=== PATIENT | male | born 1940 | race Caucasian/White ===

== ENCOUNTER 2021-10-28 10:54 | Inpatient (IN) | payer MEDICARE ==
[2021-10-28] MEDS ORDERED: SODIUM CHLORIDE 0.9% 500 ML 500 ML IV STA (11:25)
[2021-10-28 11:46] LABS: Basophils % (A) 0 %; Eosinophils # (A) 0.1 k/uL (0-0.7); Eosinophils % (A) 1 %; HCT 41.9 % (39.0-53.0); HGB 13.6 gm/dL (13.0-17.5); Lymphocytes # (A) 1.2 k/uL (1.0-4.8); Lymphocytes % (A) 9 %; MCHC 32.5 g/dL (31.0-37.0); MCV 98.4 fL (80.0-100.0); Mean Platelet Volume 10.2; Monocytes # (A) 1.1 k/uL (0-1.0); Monocytes % (A) 8 %; Neutrophils # (A) 11.3 k/uL (1.3-7.7); Neutrophils % (A) 81 %; Platelet Count 238 k/uL (150-450); RBC 4.26 m/uL (4.30-5.90); RDW 13.2 % (11.5-15.5); WBC 14.1 k/uL (3.8-10.6)
[2021-10-28 11:53] LABS: Albumin 4.1 g/dL (3.5-5.0); Calcium 9.5 mg/dL (8.4-10.2); Total Bilirubin 0.5 mg/dL (0.2-1.3); Total Protein 7.6 g/dL (6.3-8.2)
--- NOTE | 2021-10-28 12:04 | CT ---
EXAMINATION TYPE: CT abdomen pelvis wo con DATE OF EXAM: 10/28/2021 COMPARISON: None HISTORY: 81-year-old male left flank pain, hematuria CT DLP: 670.4 mGycm. Automated exposure control for dose reduction was used. TECHNIQUE: Contiguous axial scanning of the abdomen and pelvis without IV contrast. Coronal and sagit radha reconstructions performed. FINDINGS: Three-vessel coronary artery calcifications are present. Heart normal size without pericardial effusi on. 5 mm left basilar pulmonary nodule can be reassessed in 6 months. Mild emphysematous and fibrotic court nge noted. Scattered hepatic hypodensities measuring up to 1.2 cm probable cysts. Numerous bilateral renal hypodensities measuring up to 4.1 cm on either side, suspected cysts 6 mm nonobstructive left renal calculus.. There is mild fullness of the left renal collecting system and mild to moderate hydronephrosis on the right. A 5 mm calculus is noted within the distal right ureter. This does not seem to fully account for the hydronephrosis on the right at the stone does not fill the lumen of the ureter. Mild thickening left adrenal gland without discrete nodularity. Right adrenal gland and spleen within normal limits. There is abnormal enlargement of the main pancreatic duct within the body, neck, and head of the panc reas with a caliber up to 3.0 cm. The abnormality measures up to 4.8 cm craniocaudal coronal image 36 . Minimal strandy density tracking down the left pararenal space and left retroperitoneum. Suspect some layering sludge in the nondistended gallbladder. Moderate prostatic calcifications infrarenal abdominal aorta and iliac arteries. No dilated small bowel, free fluid, or free air. No obvious mesenteric or retroperitoneal lymphadenop athy. Left-sided colonic diverticulosis. There is a moderate to large left inguinal hernia extending into the upper left scrotal sac measuring up to 14.8 cm long and 7.1 cm wide containing mesenteric fat and nonobstructed proximal sigmoid colo n. No pericolonic inflammatory change seen. Bladder collapsed. Prostate gland enlargement 4.8 cm wide. Possible additional soft tissue thickening along the posterior bladder base, sagittal image 65. Pelvic phlebolith. No abnormal fluid collection in the pelvis or pelvic lymphadenopathy. Bones: Mild to moderate degenerative disc disease L5-S1. Trace grade 1 anterolisthesis L4-L5 and face t arthropathy lower lumbar spine. [facility] lower thoracic spine. IMPRESSION: 1. Mild to moderate right hydronephrosis. There is a a 5 mm stone within the distal right ureter. Ho wever, this does not seem to fully account for the hydronephrosis on the right as the stone does not fill the lumen of the ureter. Correlate with urine cytology and urology referral to exclude any abnor mal soft tissue at the distal ureter or within the bladder. Mild fullness of the left renal collectin g system as well without any obstructing stones. Correlate with PSA values as well. 2. Numerous bilateral hepatic and renal cysts on both sides, largest measuring up to 4.1 cm. Additio nal 6 mm nonobstructive left renal calculus. 3. Marked abnormal enlargement of the main pancreatic duct up to 3.8 cm. Cystic pancreatic neoplasm including malignant IPMN not excluded. Further GI and oncology follow-up recommended. 4. Possible mild acute interstitial pancreatitis centered at the tail the pancreas given some inflam matory fat stranding tracking down the retroperitoneum here. 5. A 5 mm left basilar pulmonary nodule. 3 month follow-up CT chest recommended to reassess and also to survey the remainder of the lungs. 6. Left-sided colonic diverticulosis without acute diverticulitis. 7. Moderate to large left inguinal hernia extending into the left scrotal sac measuring 14.8 cm long . This contains mesenteric fat and nonobstructed proximal sigmoid colon. 8. CAD with 3 vessel coronary artery calcifications.
[2021-10-28] MEDS ORDERED: DEXTROSE 50% SYRINGE 50 ML IVP STA ×2 (12:57→19:59)
[2021-10-28] MEDS ORDERED: INSULIN REGULAR 100 UNIT/ML VIAL (IV) IV ONE ×2 (13:00→19:59)
[2021-10-28] MEDS ORDERED: SODIUM BICARB 8.4% 50 ML SYR (1 MEQ/ML) IV STA ×3 (13:02→20:01)
[2021-10-28] MEDS ORDERED: CALCIUM GLUCONATE IN NACL 2 GM in SALINE 1 100ML.BAG IVPB ONE (13:28)
--- NOTE | 2021-10-28 13:29 | P.NPCON ---
History of Present Illness - Reason for Consult acute renal failure, hyperkalemia - History of Present Illness Reason for admission: Acute kidney injury History of present illness: The patient is a 81-year-old male seen in renal consultation for acute kidney injury. Patient was seen and examined in the emergency room. Patient denies any prior history of kidney disease. Patient presented to the hospital due to hematuria and dysuria. Also complains of urinary frequency for the last 5 days or so. Patient states he has noticed intermittent gross blood in his urine the last 5 days. Creatinine on admission is 13.67. Unknown baseline renal function. Patient denies any prior history of kidney stones. Oral intake is good. No vomiting or diarrhea. No chest pain or shortness of breath. He leonardo es use of nonsteroidals. No history of diabetes. Denies family history of renal disease. No edema. CT of the abdomen and pelvis shows a 6 mm nonobstructive left renal calculus with mild fullness of the left renal collecting system. A 5 mm calculus noted in the right distal ureter with mild to moderate hydronephrosis. Bilateral hepatic and renal cysts were noted. Pancreatic duct was enlarged concerning for possible neoplasm. Denies fever or chills. Hemodynamically stable. Potassium 6.0 and bicarb level 13. Vital signs are stable. General: Awake and alert. No acute distress. HEENT: Head exam is unremarkable. LUNGS: Breath sounds decreased. HEART: Rate and Rhythm are regular. ABDOMEN: Soft, no distention. EXTREMITITES: No edema. Past Medical History Past Medical History: No Reported History History of Any Multi-Drug Resistant Organisms: None Reported Past Surgical History: No Surgical Hx Reported Past Psychological History: No Psychological Hx Reported Smoking Status: Current every day smoker Past Alcohol Use History: Daily Past Drug Use History: None Reported Medications and Allergies Allergies Allergy/AdvReac Type Severity Reaction Status Date / Time No Known Allergies Allergy Verified 10/28/21 11:07 Physical Exam Vitals: Vital Signs Temp Pulse Resp BP Pulse Ox 10/28/21 11:07 98.3 F 93 16 146/69 98 Intake and Output 10/27/21 10/28/21 10/28/21 22:59 06:59 14:59 Other: Weight 83.915 kg Results - Lab Results Most recent lab results Calcium 9.5 mg/dL (8.4-10.2) 10/28/21 11:31 10/28/21 11:31 10/28/21 11:31 Assessment and Plan Plan: Assessment: 1. Acute kidney injury secondary to obstructive uropathy. Creatinine 13.67 today. Unknown baseline renal function. 2. Bilateral nephrolithiasis and hydronephrosis. 3. Hyperkalemia secondary to acute kidney injury and metabolic acidosis. 4. Metabolic acidosis secondary to acute kidney injury. 5. Hematuria and dysuria possibly due to infected stone. Plan: Start bicarb drip at 100 mL an hour. Insert Huggins catheter. Check UA as well as urine and blood cultures. 1 g IV calcium gluconate, 10 units IV insulin, 1 amp of D50, 2 A of sodium bicarb IV push now. 10 g lokelma once today. Repeat BMP in 2-3 hours. Urology and infectious disease consulted. Strict is and os. Continue to assess closely for need for renal placement therapy. This was discussed with the patient. Case discussed with YOLANDA GARRISON. Thank you for the consultation. I will continue to follow the patient with you during his hospital stay.
[2021-10-28] MEDS ORDERED: CALCIUM GLUCONATE IN NACL 1 GM in SALINE 1 100ML.BAG IVPB ONE ×2 (13:32→20:15)
[2021-10-28] MEDS ORDERED: SODIUM ZIRCONIUM CYCLOSILICATE 10 GM PACKET PO ONE ×2 (13:54→20:01)
[2021-10-28] MEDS ORDERED: DEXTROSE 5% IN WATER 1,000 ML with SODIUM BICARB (1 MEQ/ML) 150 ML IV SCH ×2 (14:00→21:00)
--- NOTE | 2021-10-28 14:18 | ED ---
Male Urogenital HPI - General Chief complaint: Urogenital Stated complaint: Urogenital Time Seen by Provider: 10/28/21 11:14 Source: patient Mode of arrival: ambulatory Limitations: no limitations - History of Present Illness Initial comments: Patient is an 81-year-old male presents to the emergency department with a chief complaint of burning with urination and blood in urine. Patient states this is been occurring intermittently for the past month. Upon questioning patient admits to mild intermittent left flank pain and lower back pain, bilateral. Patient denies fever, chills, abdominal pain, testicular pain, increased urinary urgency/frequency, nausea, vomiting, and diarrhea. Patient denies history of previous kidney stone, kidney infection, and urinary tract infection. Patient has no documented history however states he has not seen a primary care provider or received other type of medical care in 60 years. - Related Data Home Medications Medication Instructions Recorded Confirmed No Known Home Medications 10/28/21 10/28/21 Allergies Allergy/AdvReac Type Severity Reaction Status Date / Time No Known Allergies Allergy Verified 10/28/21 14:19 Review of Systems ROS Statement: Those systems with pertinent positive or pertinent negative responses have been documented in the HPI. ROS Other: All systems not noted in ROS Statement are negative. Past Medical History Past Medical History: No Reported History History of Any Multi-Drug Resistant Organisms: None Reported Past Surgical History: No Surgical Hx Reported Past Psychological History: No Psychological Hx Reported Smoking Status: Current every day smoker Past Alcohol Use History: Daily Past Drug Use History: None Reported General Exam Limitations: no limitations General appearance: alert, in no apparent distress Head exam: Present: atraumatic, normocephalic, normal inspection Eye exam: Present: normal appearance, PERRL, EOMI. Absent: scleral icterus, conjunctival injection, periorbital swelling ENT exam: Present: normal exam, mucous membranes moist Neck exam: Present: normal inspection, full ROM Respiratory exam: Present: normal lung sounds bilaterally. Absent: respiratory distress, wheezes, rales, rhonchi, stridor Cardiovascular Exam: Present: regular rate, normal rhythm, normal heart sounds. Absent: systolic murmur, diastolic murmur, rubs, gallop, clicks GI/Abdominal exam: Present: soft, normal bowel sounds. Absent: distended, tenderness, guarding, rebound, rigid Back exam: Present: normal inspection, full ROM. Absent: CVA tenderness (R), CVA tenderness (L), paraspinal tenderness, vertebral tenderness Neurological exam: Present: alert, oriented X3, CN II-XII intact Psychiatric exam: Present: normal affect, normal mood Skin exam: Present: warm, dry, intact, normal color. Absent: rash Course Vital Signs 10/28/21 10/28/21 11:07 13:30 Temperature 98.3 F Pulse Rate 93 97 Respiratory 16 16 Rate Blood Pressure 146/69 180/83 O2 Sat by Pulse 98 97 Oximetry Medical Decision Making - Medical Decision Making This is an 81-year-old male who presents with burning with urination, blood in the urine, left flank pain, and back pain. Thorough history and examination were performed. Patient states his symptoms have been intermittent for 4 weeks. Patient has not seen a primary care provider or been medically evaluated and 60 years. The abdomen is soft and nontender. No bilateral flanks, bilateral paravertebral, or vertebral tenderness. Despite burning with urination due to patient's age and urine urine I will obtain imaging for kidney stone concern. CT of the abdomen and pelvis without contrast was obtained which showed numerous abnormalities. Most significant include a 5 mm stone visualized within the distal right ureter with mild to moderate right-sided hydronephrosis however the stone does not feel the lumen of the ureter, so the hydronephrosis does not seem fairly accounted for. There is mild fullness of the left renal collecting duct without any obstructing stone. There is marked abnormal enlargement of the main pancreatic duct up to 3.8 cm, cystic pancreatic neoplasm including malignancy cannot be excluded. Patient given small fluid bolus. Laboratory studies were obtained. Creatinine is significantly elevated at 13.67, BUN when elevated at 104. Baseline renal function unknown. Potassium elevated at 6.0. White blood cell count elevated at 14.1. Urinalysis pending. Case discussed with skilled nursing facility counselor Dr. Arita. We will attempt to improve creatinine and potassium with medication and if no improvement patient will need dialysis. He also recommended infectious disease consult. Case discussed with urologist Dr. Johansen who recommends bladder scan and Huggins catheter placement. Bladder scan shows 0 mL. Huggins catheter was placed. Case discussed with Dr. Roberto. Patient will be admitted to his service with nephrology, urology, oncology, and infectious disease consult. Patient admitted in stable condition. Dr. Temple is my attendnig. - Lab Data Result diagrams: 10/28/21 11:31 10/28/21 11:31 Lab Results 10/28/21 10/28/21 Range/Units 11:31 11:31 WBC 14.1 H (3.8-10.6) k/uL RBC 4.26 L (4.30-5.90) m/uL Hgb 13.6 (13.0-17.5) gm/dL Hct 41.9 (39.0-53.0) % MCV 98.4 (80.0-100.0) fL MCH 32.0 (25.0-35.0) pg MCHC 32.5 (31.0-37.0) g/dL RDW 13.2 (11.5-15.5) % Plt Count 238 (150-450) k/uL MPV 10.2 Neutrophils % 81 % Lymphocytes % 9 % Monocytes % 8 % Eosinophils % 1 % Basophils % 0 % Neutrophils # 11.3 H (1.3-7.7) k/uL Lymphocytes # 1.2 (1.0-4.8) k/uL Monocytes # 1.1 H (0-1.0) k/uL Eosinophils # 0.1 (0-0.7) k/uL Basophils # 0.0 (0-0.2) k/uL Sodium 134 L (137-145) mmol/L Potassium 6.0 H (3.5-5.1) mmol/L Chloride 104 (98-107) mmol/L Carbon Dioxide 13 L (22-30) mmol/L Anion Gap 17 mmol/L BUN 104 H* (9-20) mg/dL Creatinine 13.67 H* (0.66-1.25) mg/dL Est GFR (CKD-EPI)AfAm 3 (>60 ml/min/1.73 sqM) Est GFR (CKD-EPI)NonAf 3 (>60 ml/min/1.73 sqM) Glucose 107 H (74-99) mg/dL Calcium 9.5 (8.4-10.2) mg/dL Total Bilirubin 0.5 (0.2-1.3) mg/dL AST 20 (17-59) U/L ALT 12 (4-49) U/L Alkaline Phosphatase 34 L (38-126) U/L Total Protein 7.6 (6.3-8.2) g/dL Albumin 4.1 (3.5-5.0) g/dL Lipase 252 (23-300) U/L Disposition Clinical Impression: MARIANEAL (acute kidney injury), Hydronephrosis of right kidney, Bilateral kidney stones, Pancreatic ductal abnormality, Pulmonary nodule, Burning with urination, Blood in urine Disposition: ADMITTED IP TO THIS [facility] Condition: Fair Referrals: None,Stated [Primary Care Provider] - 1-2 days Decision Time: 14:28
--- NOTE | 2021-10-28 14:25 | P.GSCN ---
History of Present Illness Consult date: 10/28/21 History of present illness: 81-year-old gentleman who hasn't seen a doctor for well over 50 years. He comes emergency room with a two-week history of dysuria and hematuria. He was evaluated emergency room found to be in renal failure with a creatinine of 13. Had a computed tomography scan abnormal identifying right-sided hydronephrosis with a distal ureteral stone and some mild left-sided hydronephrosis. The bladder was not obviously full. A catheters placed in there was not any significant urine. He was seen by nephrology and nephrology thought he had renal final due to obstructive uropathy. The patient states that he normally voids relatively well although somewhat frequently. There is not been any problems voiding. There is not been any incontinence. He has a catheter indwelling with no urine in the catheter. The computed tomography scan is rev iewed by myself identified a chronic hydronephrosis on the right, possible stone in the ureter and some left-sided hydronephrosis. Review of Systems All systems: negative - Constitutional Denies fever, Denies weight loss - EENT Eyes: denies blurred vision Ears, nose, mouth and throat: Denies dysphagia - Cardiovascular Denies chest pain, Denies shortness of breath - Respiratory Denies cough, Denies 7 - Gastrointestinal Reports as per HPI - Genitourinary Denies dysuria, Denies hematuria - Integumentary Denies rash, Denies unusual bruising - Neurological Denies headaches, Denies syncope - Hematologic/Lymphatic Denies easy bleeding, Denies easy bruising Past Medical History Past Medical History: No Reported History History of Any Multi-Drug Resistant Organisms: None Reported Past Surgical History: No Surgical Hx Reported Past Psychological History: No Psychological Hx Reported Smoking Status: Current every day smoker Past Alcohol Use History: Daily Past Drug Use History: None Reported Medications and Allergies Home Medications Medication Instructions Recorded Confirmed Type No Known Home Medications 10/28/21 10/28/21 History Allergies Allergy/AdvReac Type Severity Reaction Status Date / Time No Known Allergies Allergy Verified 10/28/21 14:19 Surgical - Exam Vital Signs Temp Pulse Resp BP Pulse Ox 98.3 F 93 16 146/69 98 10/28/21 11:07 10/28/21 11:07 10/28/21 11:07 10/28/21 11:07 10/28/21 11:07 - General well developed, well nourished, no distress - Eyes PERRL - ENT no hearing loss - Neck no masses - Respiratory normal expansion, normal respiratory effort - Cardiovascular Rhythm: regular - Abdomen Abdomen: soft, non tender - Genitourinary Indwelling catheter with no urine prostate is 30 g soft and benign normal penis with no external lesions, testicles present - Integumentary no rash, no growths - Neurologic normal coordination, normal sensation - Musculoskeletal normal posture - Psychiatric oriented to time, oriented to person, oriented to place, speech is normal, memory intact Results - Labs 10/28/21 11:31 10/28/21 11:31 Abnormal Lab Results - Last 24 Hours (Table) 10/28/21 10/28/21 Range/Units 11:31 11:31 WBC 14.1 H (3.8-10.6) k/uL RBC 4.26 L (4.30-5.90) m/uL Neutrophils # 11.3 H (1.3-7.7) k/uL Monocytes # 1.1 H (0-1.0) k/uL Sodium 134 L (137-145) mmol/L Potassium 6.0 H (3.5-5.1) mmol/L Carbon Dioxide 13 L (22-30) mmol/L BUN 104 H* (9-20) mg/dL Creatinine 13.67 H* (0.66-1.25) mg/dL Glucose 107 H (74-99) mg/dL Alkaline Phosphatase 34 L (38-126) U/L Diabetes panel 10/28/21 Range/Units 11:31 Sodium 134 L (137-145) mmol/L Potassium 6.0 H (3.5-5.1) mmol/L Chloride 104 (98-107) mmol/L Carbon Dioxide 13 L (22-30) mmol/L BUN 104 H* (9-20) mg/dL Creatinine 13.67 H* (0.66-1.25) mg/dL Glucose 107 H (74-99) mg/dL Calcium 9.5 (8.4-10.2) mg/dL AST 20 (17-59) U/L ALT 12 (4-49) U/L Alkaline Phosphatase 34 L (38-126) U/L Total Protein 7.6 (6.3-8.2) g/dL Albumin 4.1 (3.5-5.0) g/dL Calcium panel 10/28/21 Range/Units 11:31 Calcium 9.5 (8.4-10.2) mg/dL Albumin 4.1 (3.5-5.0) g/dL Pituitary panel 10/28/21 Range/Units 11:31 Sodium 134 L (137-145) mmol/L Potassium 6.0 H (3.5-5.1) mmol/L Chloride 104 (98-107) mmol/L Carbon Dioxide 13 L (22-30) mmol/L BUN 104 H* (9-20) mg/dL Creatinine 13.67 H* (0.66-1.25) mg/dL Glucose 107 H (74-99) mg/dL Calcium 9.5 (8.4-10.2) mg/dL Adrenal panel 10/28/21 Range/Units 11:31 Sodium 134 L (137-145) mmol/L Potassium 6.0 H (3.5-5.1) mmol/L Chloride 104 (98-107) mmol/L Carbon Dioxide 13 L (22-30) mmol/L BUN 104 H* (9-20) mg/dL Creatinine 13.67 H* (0.66-1.25) mg/dL Glucose 107 H (74-99) mg/dL Calcium 9.5 (8.4-10.2) mg/dL Total Bilirubin 0.5 (0.2-1.3) mg/dL AST 20 (17-59) U/L ALT 12 (4-49) U/L Alkaline Phosphatase 34 L (38-126) U/L Total Protein 7.6 (6.3-8.2) g/dL Albumin 4.1 (3.5-5.0) g/dL - Imaging CT scan - abdomen: report reviewed, image reviewed CT scan - pelvis: report reviewed, image reviewed Assessment and Plan Assessment: Impression: Acute renal failure. Hematuria. Right-sided hydronephrosis chronic left-sided hydronephrosis. Possible ureteral stone Recommendations: The amount of hydronephrosis does not seem to be consistent with a renal failure however without other obvious causes a renal failure think cystoscopy bilateral retrograde pyelograms probable stent placements would be in order. I will do that this afternoon.
[2021-10-28] MEDS: SODIUM CHLORIDE 0.9% 1,000 ML IV SCH ×2 (14:30→15:41)
[2021-10-28] MEDS ORDERED: ACETAMINOPHEN TAB 325 MG TAB PO PRN (14:54)
[2021-10-28] MEDS ORDERED: NALOXONE 0.4 MG/ML 1 ML VIAL IV PRN (14:54)
[2021-10-28] MEDS ORDERED: MELATONIN 3 MG TABLET PO PRN (14:54)
[2021-10-28] MEDS ORDERED: bisacodyL 5 MG TABLET.DR PO PRN (14:54)
[2021-10-28] MEDS ORDERED: ONDANSETRON 4 MG/2 ML VIAL IVP PRN (14:54)
[2021-10-28 15:07] LABS: Calcium 8.2 mg/dL (8.4-10.2); Potassium 5.1 mmol/L (3.5-5.1)
--- NOTE | 2021-10-28 15:13 | P.HPIM ---
History of Present Illness H&P Date: 10/28/21 Chief Complaint: dysuria Patient is an 81-year-old male with chronic tobacco dependency, daily alcohol use who has not seen a physician in many years who presented to the ER with complaints of difficulty with urination. On arrival to the ER his vital signs were within normal limits. Laboratory analysis showed a white blood cell count of 14.1, sodium 134, potassium 6, carbon dioxide 13, anion gap 17, BUN 104, creatinine 13.6. CT abdomen and pelvis was completed which demonstrated mild to moderate right hydronephrosis with a 5 mm stone in the right distal ureter, mild. The left renal collecting system without any obstruction, numerous bilateral hepatic and renal cysts on both sides, marked enlargement of the pancreatic duct up to 3.8 m with cystic pancreatic neoplasm including malignant IPM and not excluded, possible mild acute interstitial pancreatitis centered in the tail, 5 mm basilar pulmonary nodule, moderate to large inguinal hernia, and coronary artery calcifications. In the ER he was started on IV fluids. He is given a dose of Lokalema, sodium bicarb, insulin, dextrose, and calcium. Nephrology was consulted. Arrangements are made for admission for acute renal failure. Maria catheter was inserted. He was seen by urology who plans on stent placement. Patient seen and examined at bedside. He reports that for the past 2 months he has been having dysuria, urinary frequency, and intermittent hematuria. He reports feeling weak today. Intermittent constipation. He has not chest pain, SOB, nuasea, vomiting, fevers, chills. He denies weight loss/gain. He has not seen a doctor in his adult life. Pertinent positives and negatives as discussed in HPI, a complete review of systems was performed and all other systems are negative. Vital signs reviewed General: non toxic, no distress, appears at stated age Derm: warm, dry Head: atraumatic, normocephalic, symmetric Eyes: EOMI, no lid lag, anicteric sclera, pupils equal round reactive to light ENT: Nose and ears atraumatic, no thrush, no pharyngeal erythema Neck: No thyromegaly, no cervical lymphadenopathy, trachea midline, supple Mouth: no lip lesion, mucus membranes moist Cardiovascular: S1S2 reg, no murmur, positive posterior tibial pulse bilateral, no edema, capillary refill less than 2 seconds Lungs: clear to ascultation bilateral, no ronchi, no rales, no wheeze, no accessory muscle use Abdominal: soft, nontender to palpation, no guarding, no appreciable organomegaly, normal bowel sounds Ext: no gross muscle atrophy, muscle strength muscle strength 5 out of 5 in all 4 extremities, no contractures, + maria-- no urine in the bag. Neuro: CN II-XII grossly intact, light touch intact all 4 extremities, finger to nose within normal limits, Psych: Alert, oriented, appropriate affect Assessment/Plan: Acute kidney injury secondary to obstructive uropathy Bilateral hydronephrosis, right-sided nephrolithiasis Hyperkalemia High anion gap metabolic acidosis Hematuria - nephrology and urology recs appreciated - s/p acute hyperkalemia treatment - avoid nephrotoxic agents - plan for uteteral stent placement - strict I and O - follow renal labs - maria Pancreatic duct dilatation - oncology eval - likely MRCP early next week ETOH abuse - CIWA - Thiamine - folic acid Tobacco abuse - nicotine replacement The patient is admitted with an anticipated greater than 2 midnight stay for evaluation of MARIANELA. Surrogate decision-maker: CODE STATUS:full, no prolonged vent/trach/PEG DVT prophylaxis: Heparin Discussed with: patient, nursing, ED provider Anticipated discharge date: in 4-[address]: home A total of 65 minutes was spent on the care of this complex patient more than 50% of the time was spent in counseling and care coordination. Past Medical History Past Medical History: No Reported History History of Any Multi-Drug Resistant Organisms: None Reported Past Surgical History: No Surgical Hx Reported Past Psychological History: No Psychological Hx Reported Smoking Status: Current every day smoker Past Alcohol Use History: Daily Past Drug Use History: None Reported - Past Family History Mother Additional Family Medical History / Comment(s): breast cancer Father Additional Family Medical History / Comment(s): heart disease Medications and Allergies Home Medications Medication Instructions Recorded Confirmed Type No Known Home Medications 10/28/21 10/28/21 History Allergies Allergy/AdvReac Type Severity Reaction Status Date / Time No Known Allergies Allergy Verified 10/28/21 14:19 Physical Exam Osteopathic Statement: *. No significant issues noted on an osteopathic structural exam other than those noted in the History and Physical/Consult. Vitals: Vital Signs Temp Pulse Resp BP Pulse Ox 10/28/21 13:30 97 16 180/83 97 10/28/21 11:07 98.3 F 93 16 146/69 98 Intake and Output 10/27/21 10/28/21 10/28/21 22:59 06:59 14:59 Output Total 0 Balance 0 Output: Post Void Residual 0 Other: Weight 83.915 kg Results CBC & Chem 7: 10/28/21 11:31 10/28/21 11:31 Labs: Abnormal Lab Results - Last 24 Hours (Table) 10/28/21 10/28/21 Range/Units 11:31 11:31 WBC 14.1 H (3.8-10.6) k/uL RBC 4.26 L (4.30-5.90) m/uL Neutrophils # 11.3 H (1.3-7.7) k/uL Monocytes # 1.1 H (0-1.0) k/uL Sodium 134 L (137-145) mmol/L Potassium 6.0 H (3.5-5.1) mmol/L Carbon Dioxide 13 L (22-30) mmol/L BUN 104 H* (9-20) mg/dL Creatinine 13.67 H* (0.66-1.25) mg/dL Glucose 107 H (74-99) mg/dL Alkaline Phosphatase 34 L (38-126) U/L
[2021-10-28] MEDS ORDERED: LORazepam 2 MG/ML INJ IV PRN ×3 (15:14)
[2021-10-28] MEDS ORDERED: IV FLUID CONTINUATION 1,000 ML IV ONE (17:18)
[2021-10-28] MEDS ORDERED: HYDROmorphone (PF) 1 MG/ML ONE (17:59)
[2021-10-28] MEDS ORDERED: MIDAZOLAM 2 MG/2 ML VIAL ONE (17:59)
[2021-10-28] MEDS ORDERED: ROCURONIUM 10 MG/ML (5 ML VIAL) IV ONE (17:59)
[2021-10-28] MEDS ORDERED: NEOSTIGMINE 1 MG/ML 10 ML VIAL ONE (17:59)
[2021-10-28] MEDS ORDERED: LIDOCAINE 2% INJ 20 MG/ML (2 ML VIAL) ONE (17:59)
[2021-10-28] MEDS ORDERED: fentaNYL (PF) 50 MCG/ML 2 ML AMP ONE (17:59)
[2021-10-28] MEDS ORDERED: PROPOFOL 10 MG/ML 20 ML VIAL IV ONE (17:59)
[2021-10-28] MEDS ORDERED: GLYCOPYRROLATE 0.2 MG/ML 2 ML VIAL ONE (17:59)
[2021-10-28 18:11] LABS: Calcium 8.9 mg/dL (8.4-10.2); Potassium 5.5 mmol/L (3.5-5.1)
--- NOTE | 2021-10-28 19:30 | P.OP ---
Date of Procedure: 10/28/21 Preoperative Diagnosis: Bilateral hydronephrosis right greater than left, presumed ureteral calculus right, hematuria, acute renal failure Postoperative Diagnosis: Same secondary to invasive bladder cancer Procedure(s) Performed: Cystoscopy transurethral resection of bladder tumor Anesthesia: ROWENA Surgeon: Francisco Javier Johansen Estimated Blood Loss (ml): 100 Pathology: other (Bladder cancer) Disposition: PACU Indications for Procedure: The patient is 81. He presented to the emergency room with hematuria and dysuria. He is found to have acute renal failure with a creatinine of 13.9. He has no medical history and has never seen a doctor in 50 years. He had a computed tomography scan identifying bilateral hydronephrosis right greater than left. It was thought that there is a stone in the right ureter. There also may be a mass in the bladder. With these findings he comes for cystoscopy retrograde pyelograms and possible TURBT possible stent placement. Description of Procedure: Patient brought to the operative suite. Given general anesthesia. Placed lithotomy position with sterile prep and drape. Under direct vision the 25- Thai sheath direct vision obturator and Foroblique lenses introduced in urethra is normal. The prostate is not obstructing. Upon entering the bladder there is obvious diffuse non-papillary tumor on the floor the bladder right and lateral guo. I cannot see the trigone. The bladder guo heavily trabeculated. Moore resectoscope I resect as much of the tumor I can see. I still cannot see the ureteral orifices. The tumor is of moderate size (3-4 cm) I controlled bleeding with electrocautery. I then the procedure I irrigate the bladder. It is clear to minimal pinkness. A Huggins catheters placed and irrigated freely. The patient awake and returned recovery room good condition Impression this patient has a term invasive bladder cancer obstructing both ureters leading to renal failure bilateral hydronephrosis. We will see if the resection relieves any of the obstruction he needs able to make urine if not then he will need dialysis and bilateral nephrostomy tubes. This has been explained to the family.
[2021-10-28] MEDS ORDERED: HYDROmorphone 0.5 MG/0.5 ML SYRINGE IVP ONE ×2 (19:41→19:48)
[2021-10-28] MEDS ORDERED: SODIUM CHLORIDE 0.9% 1,000 ML IV ONE (19:42)
[2021-10-28] MEDS ORDERED: ONDANSETRON 4 MG/2 ML VIAL IVP ONE (19:49)
[2021-10-28] MEDS: HEPARIN SODIUM,PORCINE/PF 5,000 UNIT/0.5 ML SYRINGE SQ SCH (20:56)
[2021-10-28 22:59] LABS: Appearance,Urine Bloody (Clear)
[2021-10-28 23:00] LABS: Color,Urine Red
[2021-10-28 23:09] LABS: RBC,Urine >182 /hpf (0-5); WBC,Urine 153 /hpf (0-5)
[2021-10-29 01:17] LABS: Calcium 8.6 mg/dL (8.4-10.2)
[2021-10-29] MEDS ORDERED: INSULIN REGULAR 100 UNIT/ML VIAL (IV) IV ONE (01:50)
[2021-10-29] MEDS ORDERED: CALCIUM GLUCONATE IN NACL 1 GM in SALINE 1 100ML.BAG IVPB ONE (01:53)
[2021-10-29] MEDS ORDERED: DEXTROSE 50% SYRINGE 50 ML IVP STA (01:55)
[2021-10-29] MEDS: HEPARIN SODIUM,PORCINE/PF 5,000 UNIT/0.5 ML SYRINGE SQ SCH (02:14)
[2021-10-29 08:05] LABS: Glucose,Whole Blood 85 mg/dL (75-99)
--- NOTE | 2021-10-29 10:10 | P.PN ---
Subjective Progress Note Date: 10/29/21 Pt doing well today, no new complaints. Now is putting out urine, s/p bladder tumor resection. Monitoring K, Cr, BUN closely with possibility of dialysis and b/l nephrostomy tube placement if patients kidney function declines. Gen: awake, alert HEENT: normocephalic, atraumatic, good hearing acuity, moist mucous membranes Resp: good air exchange, breathing comfortably with no accessory muscle use CVS: good distal perfusion x 4, GI: soft, NTTP, ND : no SPT, no CVAT, maria catheter is present, hemorrhagic urine MSK: no pitting edema, no clubbing Neuro: non-focal, moving all extremities Psych: cooperative, euthymic mood Assessment/plan: Acute kidney injury secondary to obstructive uropathy Bilateral hydronephrosis, right-sided nephrolithiasis Invasive Bladder Carcinoma Hyperkalemia High anion gap metabolic acidosis Hematuria - nephrology and urology recs appreciated - s/p acute hyperkalemia treatment - avoid nephrotoxic agents - plan for uteteral stent placement - strict I and O - follow renal labs - maria - f/u pathology of bladder mass Pancreatic duct dilatation - oncology eval - likely MRCP early next week ETOH abuse - CIWA - Thiamine - folic acid Tobacco abuse - nicotine replacement Surrogate decision-maker: CODE STATUS:full, no prolonged vent/trach/PEG DVT prophylaxis: Heparin Anticipated discharge date: in 4-[address]: home Objective - Vital Signs Vital signs: Vital Signs Temp 98 F 10/29/21 04:55 Pulse 89 10/29/21 04:55 Resp 16 10/29/21 04:55 BP 139/67 10/29/21 04:55 Pulse Ox 95 10/29/21 04:55 FiO2 Intake & Output 10/28/21 10/29/21 10/29/21 18:59 06:59 18:59 Intake Total 600 150 Output Total 0 475 Balance 600 -325 Weight 83.915 kg Intake: IV 600 150 Output: Urine 450 Post Void Residual 0 Estimated Blood Loss 25 Other: Voiding Method Indwelling Catheter - Labs CBC & Chem 7: 10/28/21 11:31 10/29/21 00:11 Labs: Abnormal Lab Results - Last 24 Hours (Table) 10/28/21 10/28/21 10/28/21 Range/Units 11:31 11:31 14:26 WBC 14.1 H (3.8-10.6) k/uL RBC 4.26 L (4.30-5.90) m/uL Neutrophils # 11.3 H (1.3-7.7) k/uL Monocytes # 1.1 H (0-1.0) k/uL Sodium 134 L (137-145) mmol/L Potassium 6.0 H (3.5-5.1) mmol/L Carbon Dioxide 13 L 33 H (22-30) mmol/L BUN 104 H* 114 H* (9-20) mg/dL Creatinine 13.67 H* 12.02 H* (0.66-1.25) mg/dL Glucose 107 H 172 H (74-99) mg/dL Calcium 8.2 L (8.4-10.2) mg/dL Alkaline Phosphatase 34 L (38-126) U/L Urine RBC (0-5) /hpf Urine WBC (0-5) /hpf 10/28/21 10/28/21 10/29/21 Range/Units 17:29 22:45 00:11 WBC (3.8-10.6) k/uL RBC (4.30-5.90) m/uL Neutrophils # (1.3-7.7) k/uL Monocytes # (0-1.0) k/uL Sodium 133 L 135 L (137-145) mmol/L Potassium 5.5 H (3.5-5.1) mmol/L Carbon Dioxide 16 L (22-30) mmol/L BUN 104 H* 104 H* (9-20) mg/dL Creatinine 13.50 H* 12.82 H* (0.66-1.25) mg/dL Glucose 100 H 57 L (74-99) mg/dL Calcium (8.4-10.2) mg/dL Alkaline Phosphatase (38-126) U/L Urine RBC >182 H (0-5) /hpf Urine WBC 153 H (0-5) /hpf Microbiology - Last 24 Hours (Table) 10/28/21 22:45 Urine Culture - Preliminary Urine,Voided
--- NOTE | 2021-10-29 11:01 | P.PN ---
Subjective Patient is seen in follow for acute kidney injury. Patient noted to have bilateral hydronephrosis and underwent cystoscopy with transurethral resection of bladder tumor on 10/28/2021. Has a Huggins catheter with bloody urine output. On bicarb drip. Hemodynamically stable. Oral intake is fair. Vital signs are stable. General: Awake. No acute distress. HEENT: Head exam is unremarkable. LUNGS: Breath sounds decreased. HEART: Rate and Rhythm are regular. ABDOMEN: Soft, no distention. EXTREMITITES: No edema. Objective - Vital Signs Vital signs: Vital Signs Temp 98.6 F 10/29/21 10:33 Pulse 83 10/29/21 10:33 Resp 15 10/29/21 10:33 BP 147/64 10/29/21 10:33 Pulse Ox 95 10/29/21 04:55 FiO2 Intake & Output 10/28/21 10/29/21 10/29/21 18:59 06:59 18:59 Intake Total 600 150 Output Total 0 475 Balance 600 -325 Weight 83.915 kg Intake: IV 600 150 Output: Urine 450 Post Void Residual 0 Estimated Blood Loss 25 Other: Voiding Method Indwelling Catheter - Labs CBC & Chem 7: 10/28/21 11:31 10/29/21 00:11 Labs: Abnormal Lab Results - Last 24 Hours (Table) 10/28/21 10/28/21 10/28/21 Range/Units 11:31 11:31 14:26 WBC 14.1 H (3.8-10.6) k/uL RBC 4.26 L (4.30-5.90) m/uL Neutrophils # 11.3 H (1.3-7.7) k/uL Monocytes # 1.1 H (0-1.0) k/uL Sodium 134 L (137-145) mmol/L Potassium 6.0 H (3.5-5.1) mmol/L Carbon Dioxide 13 L 33 H (22-30) mmol/L BUN 104 H* 114 H* (9-20) mg/dL Creatinine 13.67 H* 12.02 H* (0.66-1.25) mg/dL Glucose 107 H 172 H (74-99) mg/dL Calcium 8.2 L (8.4-10.2) mg/dL Alkaline Phosphatase 34 L (38-126) U/L Urine RBC (0-5) /hpf Urine WBC (0-5) /hpf 10/28/21 10/28/21 10/29/21 Range/Units 17:29 22:45 00:11 WBC (3.8-10.6) k/uL RBC (4.30-5.90) m/uL Neutrophils # (1.3-7.7) k/uL Monocytes # (0-1.0) k/uL Sodium 133 L 135 L (137-145) mmol/L Potassium 5.5 H (3.5-5.1) mmol/L Carbon Dioxide 16 L (22-30) mmol/L BUN 104 H* 104 H* (9-20) mg/dL Creatinine 13.50 H* 12.82 H* (0.66-1.25) mg/dL Glucose 100 H 57 L (74-99) mg/dL Calcium (8.4-10.2) mg/dL Alkaline Phosphatase (38-126) U/L Urine RBC >182 H (0-5) /hpf Urine WBC 153 H (0-5) /hpf Microbiology - Last 24 Hours (Table) 10/28/21 22:45 Urine Culture - Preliminary Urine,Voided Assessment and Plan Plan: Assessment: 1. Acute kidney injury secondary to obstructive uropathy. Creatinine 13.67 on admission - 12.8 to as of last night. Unknown baseline renal function. 2. Bilateral nephrolithiasis and hydronephrosis. Status post cystoscopy with transurethral resection of bladder tumor on 10/28/2021. Urology following. Has a Huggins catheter. 3. Hyperkalemia secondary to acute kidney injury and metabolic acidosis. Improved with medical management. 4. Metabolic acidosis secondary to acute kidney injury. Improved with bicarbonate drip. 5. Pancreatic duct dilatation. Questionable malignancy. Plan: Stop bicarb drip. Start normal saline at 70 mL an hour. Check phosphorus level. Continue to monitor renal function and urine output. Follow-up morning labs. If no significant improvement in renal function, will initiate renal replacement therapy. Continue follow-up with urology. May need nephrostomy tubes. Discussed with patient.
[2021-10-29 11:25] LABS: HCT 33.9 % (39.0-53.0); MCH 31.4 pg (25.0-35.0); MCHC 32.6 g/dL (31.0-37.0); MCV 96.3 fL (80.0-100.0); Mean Platelet Volume 8.8; Platelet Count 225 k/uL (150-450); RBC 3.52 m/uL (4.30-5.90); RDW 13.2 % (11.5-15.5); WBC 13.5 k/uL (3.8-10.6)
[2021-10-29 11:32] LABS: Calcium 8.5 mg/dL (8.4-10.2); Magnesium 1.8 mg/dL (1.6-2.3); Phosphorus 7.5 mg/dL (2.5-4.5); Potassium 5.2 mmol/L (3.5-5.1)
[2021-10-29 11:53] LABS: Glucose,Whole Blood 109 mg/dL (75-99)
[2021-10-29] MEDS: SODIUM CHLORIDE 0.9% 1,000 ML IV SCH (13:10)
[2021-10-29] MEDS ORDERED: HEPARIN SODIUM 1,000 UN/ML (10ML VL) IV ONE (13:32)
[2021-10-29] MEDS ORDERED: HEPARIN SODIUM 1,000 UN/ML (10ML VL) IV PRN (13:32)
--- NOTE | 2021-10-29 13:37 | P.PN ---
Subjective Progress Note Date: 10/29/21 The patient is in the hospital with acute renal failure. This is probably post renal as he has bilateral hydronephrosis. Yesterday I identified what appears to be an invasive bladder cancer. This was resected. He seems to made a fair amount urine overnight which is good. I was unable to see real orifice ease therefore double-J catheters could not be placed. Remotely may be only get by with improvement acute renal function based on what I did however nephrostomy tubes may be in order in the future. I lengthy discussion with the daughter who understands medical issues that she is a pharmacist and I explained to her the 2 possibilities could be an invasive bladder cancer or remotely and metastatic pancreatic cancer. He has a strange looking pancreas on computed tomography scan however I favor bladder cancer at this point in time is the patient has been a long-term smoker. We will see how he does overnight before further consideration of dialysis is entertained. Preferably had like to wait till the biopsy comes back before recommendation of nephrostomy tubes. I will follow with you. Objective - Vital Signs Vital signs: Vital Signs Temp 98.6 F 10/29/21 10:33 Pulse 83 10/29/21 10:33 Resp 15 10/29/21 10:33 BP 147/64 10/29/21 10:33 Pulse Ox 95 10/29/21 04:55 FiO2 Intake & Output 10/28/21 10/29/21 10/29/21 18:59 06:59 18:59 Intake Total 600 150 Output Total 0 475 Balance 600 -325 Weight 83.915 kg Intake: IV 600 150 Output: Urine 450 Post Void Residual 0 Estimated Blood Loss 25 Other: Voiding Method Indwelling Catheter Indwelling Catheter - Labs CBC & Chem 7: 10/29/21 10:28 10/29/21 10:28 Labs: Abnormal Lab Results - Last 24 Hours (Table) 10/28/21 10/28/21 10/28/21 Range/Units 14:26 17:29 22:45 WBC (3.8-10.6) k/uL RBC (4.30-5.90) m/uL Hgb (13.0-17.5) gm/dL Hct (39.0-53.0) % Sodium 133 L (137-145) mmol/L Potassium 5.5 H (3.5-5.1) mmol/L Carbon Dioxide 33 H 16 L (22-30) mmol/L BUN 114 H* 104 H* (9-20) mg/dL Creatinine 12.02 H* 13.50 H* (0.66-1.25) mg/dL Glucose 172 H 100 H (74-99) mg/dL POC Glucose (mg/dL) (75-99) mg/dL Calcium 8.2 L (8.4-10.2) mg/dL Phosphorus (2.5-4.5) mg/dL Urine RBC >182 H (0-5) /hpf Urine WBC 153 H (0-5) /hpf 10/29/21 10/29/21 10/29/21 Range/Units 00:11 10:28 10:28 WBC 13.5 H (3.8-10.6) k/uL RBC 3.52 L (4.30-5.90) m/uL Hgb 11.0 L (13.0-17.5) gm/dL Hct 33.9 L (39.0-53.0) % Sodium 135 L 135 L (137-145) mmol/L Potassium 5.2 H (3.5-5.1) mmol/L Carbon Dioxide 21 L (22-30) mmol/L BUN 104 H* 97 H (9-20) mg/dL Creatinine 12.82 H* 12.32 H* (0.66-1.25) mg/dL Glucose 57 L (74-99) mg/dL POC Glucose (mg/dL) (75-99) mg/dL Calcium (8.4-10.2) mg/dL Phosphorus 7.5 H (2.5-4.5) mg/dL Urine RBC (0-5) /hpf Urine WBC (0-5) /hpf 10/29/21 Range/Units 11:50 WBC (3.8-10.6) k/uL RBC (4.30-5.90) m/uL Hgb (13.0-17.5) gm/dL Hct (39.0-53.0) % Sodium (137-145) mmol/L Potassium (3.5-5.1) mmol/L Carbon Dioxide (22-30) mmol/L BUN (9-20) mg/dL Creatinine (0.66-1.25) mg/dL Glucose (74-99) mg/dL POC Glucose (mg/dL) 109 H (75-99) mg/dL Calcium (8.4-10.2) mg/dL Phosphorus (2.5-4.5) mg/dL Urine RBC (0-5) /hpf Urine WBC (0-5) /hpf Microbiology - Last 24 Hours (Table) 10/28/21 22:45 Urine Culture - Preliminary Urine,Voided
[2021-10-29] MEDS ORDERED: DILTIAZEM 125 MG in SODIUM CHLORIDE 0.9% 100 ML IV SCH (13:45)
[2021-10-29 14:00] LABS: Basophils % (A) 0 %; Eosinophils # (A) 0.1 k/uL (0-0.7); Eosinophils % (A) 1 %; HCT 38.4 % (39.0-53.0); HGB 12.4 gm/dL (13.0-17.5); Lymphocytes # (A) 1.5 k/uL (1.0-4.8); Lymphocytes % (A) 13 %; MCH 31.1 pg (25.0-35.0); MCHC 32.2 g/dL (31.0-37.0); MCV 96.4 fL (80.0-100.0); Mean Platelet Volume 9.1; Monocytes # (A) 0.7 k/uL (0-1.0); Monocytes % (A) 6 %; Neutrophils # (A) 9.2 k/uL (1.3-7.7); Neutrophils % (A) 78 %; Platelet Count 235 k/uL (150-450); RBC 3.99 m/uL (4.30-5.90); RDW 13.4 % (11.5-15.5); WBC 11.8 k/uL (3.8-10.6)
[2021-10-29 14:26] LABS: Prothrombin Time 11.2 sec (9.0-12.0)
[2021-10-29] MEDS ORDERED: LIDOCAINE 1% INJ 10MG/ML (5 ML VIAL-PF) SQ ONE (14:38)
[2021-10-29] MEDS: HEPARIN SOD,PORK IN 0.45% NACL 25,000 UNIT in 0.45% NACL 1 250ML.BAG IV SCH (16:05)
[2021-10-29] MEDS: METOPROLOL TARTRATE 25 MG TAB PO SCH ×2 (16:11→21:34)
[2021-10-29 16:31] LABS: Glucose,Whole Blood 106 mg/dL (75-99)
--- NOTE | 2021-10-29 17:20 | PCN ---
PROCEDURE NOTE PREOPERATIVE DIAGNOSIS: Acute on chronic renal failure. POSTOPERATIVE DIAGNOSIS: Acute on chronic renal failure. PROCEDURE PERFORMED: Ultrasound-guided dialysis catheter placement, right femoral approach. PROCEDURE DESCRIPTION: The patient was seen in the room. Right groin was prepped and drapes were applied in sterile manner. Lidocaine 1% plain was infiltrated. Ultrasound-guided micropuncture was introduced into the right femoral vein. Micropuncture guidewire was passed and a 4- Japanese dilator advanced on top of the guidewire. Then we passed a regular guidewire without any resistance. A tunnel was created. Then we placed the dialysis catheter, flushed with heparin saline and hep-locked, secured with 3-0 nylon. Patient tolerated the procedure well. MMODL / IJN: [id number] /
[2021-10-29 20:07] LABS: Glucose,Whole Blood 121 mg/dL (75-99)
--- NOTE | 2021-10-29 22:14 | P.CONS ---
History of Present Illness - Reason for Consult Consult date: 10/29/21 Per nephrology recommendation Requesting physician: Apoorva Veronica - Chief Complaint Blood in the urine x 1 week - History of Present Illness Patient is a 81-year-old male presenting to the ER yesterday for evaluation of hematuria and dysuria in this patient symptom has been going on for about a week started with increasing frequency and the patient having a he maturia with peter blood in the urine patient denies having any suprapubic or flank pain patient denies having any nausea no vomiting no abdominal pain or any diarrhea, patient on presentation to the hospital was afebrile and no fever had been recorded subsequently patient did have a white count of 14.5 with a repeat is 13.5 and the left shift patient did have a significant elevated BUN and creatinine levels and has been normal urine has been positive with more than 182 RBC and 153 WBC patient did receive a dose of Rocephin in the ER patient also have a abdominal pelvis CT which did show some mild to moderate right hydronephrosis with a 5 mm stone within the distal right ureter enlargement of the pancreatic duct moderate to large left inguinal hernia, patient was evaluated by urology and the patient was taken to the OR yesterday patient did have a evidence of invasive bladder cancer status post cystoscopy with transurethral resection of the bladder tumor infectious disease was consulted for further management of antibiotic therapy Review of Systems Positive point has been mentioned in the HPI rest of the systems are negative Past Medical History Past Medical History: No Reported History History of Any Multi-Drug Resistant Organisms: None Reported Past Surgical History: No Surgical Hx Reported Past Psychological History: No Psychological Hx Reported Smoking Status: Current every day smoker Past Alcohol Use History: Daily Additional Past Alcohol Use History / Comment(s): pt states he drinks one alcoholic beverage per day Past Drug Use History: None Reported - Past Family History Mother Additional Family Medical History / Comment(s): breast cancer Father Additional Family Medical History / Comment(s): heart disease Medications and Allergies Home Medications Medication Instructions Recorded Confirmed Type No Known Home Medications 10/28/21 10/28/21 History Allergies Allergy/AdvReac Type Severity Reaction Status Date / Time No Known Allergies Allergy Verified 10/28/21 14:19 Physical Exam Vitals: Vital Signs Temp Pulse Pulse Pulse Resp BP BP 10/29/21 10:33 98.6 F 83 15 147/64 10/29/21 04:55 98 F 89 16 139/67 10/28/21 23:00 98.3 F 75 16 135/70 10/28/21 20:40 97.6 F 87 18 161/74 10/28/21 20:09 78 18 10/28/21 19:35 79 18 10/28/21 19:17 97.2 F L 61 16 10/28/21 17:23 86 172/82 10/28/21 16:39 98.4 F 82 16 10/28/21 13:30 97 16 180/83 BP Pulse Ox 10/29/21 10:33 10/29/21 04:55 95 10/28/21 23:00 94 L 10/28/21 20:40 94 L 10/28/21 20:09 155/72 98 10/28/21 19:35 153/75 97 10/28/21 19:17 133/71 99 10/28/21 17:23 97 10/28/21 16:39 157/74 96 10/28/21 13:30 97 Intake and Output 10/28/21 10/29/21 10/29/21 22:59 06:59 14:59 Intake Total 750 Output Total 75 400 Balance 675 -400 Intake: IV 750 Output: Urine 50 400 Estimated Blood Loss 25 Other: Voiding Method Indwelling Catheter Indwelling Catheter Weight 83.915 kg GENERAL DESCRIPTION: An elderly male lying in bed, no distress. No tachypnea or accessory muscle of respiration use. HEENT: Shows Pallor , no scleral icterus. Oral mucous membrane is dry. No pharyngeal erythema or thrush NECK: Trachea central, no thyromegaly. LUNGS: Unlabored breathing. Clear to auscultation anteriorly. No wheeze or crackle. HEART: S1, S2, regular rate and rhythm. No loud murmur ABDOMEN: Soft, no tenderness , guarding or rigidity, no organomegaly EXTREMITIES: No edema of feet. SKIN: No rash, no masses palpable. NEUROLOGICAL: The patient is awake, alert, oriented x3, mood and affect normal. Results CBC & Chem 7: 10/29/21 13:39 10/29/21 10:28 Labs: Abnormal Lab Results - Last 24 Hours (Table) 10/28/21 10/28/21 10/28/21 Range/Units 11:31 11:31 14:26 WBC 14.1 H (3.8-10.6) k/uL RBC 4.26 L (4.30-5.90) m/uL Hgb (13.0-17.5) gm/dL Hct (39.0-53.0) % Neutrophils # 11.3 H (1.3-7.7) k/uL Monocytes # 1.1 H (0-1.0) k/uL Sodium 134 L (137-145) mmol/L Potassium 6.0 H (3.5-5.1) mmol/L Carbon Dioxide 13 L 33 H (22-30) mmol/L BUN 104 H* 114 H* (9-20) mg/dL Creatinine 13.67 H* 12.02 H* (0.66-1.25) mg/dL Glucose 107 H 172 H (74-99) mg/dL Calcium 8.2 L (8.4-10.2) mg/dL Phosphorus (2.5-4.5) mg/dL Alkaline Phosphatase 34 L (38-126) U/L Urine RBC (0-5) /hpf Urine WBC (0-5) /hpf 10/28/21 10/28/21 10/29/21 Range/Units 17:29 22:45 00:11 WBC (3.8-10.6) k/uL RBC (4.30-5.90) m/uL Hgb (13.0-17.5) gm/dL Hct (39.0-53.0) % Neutrophils # (1.3-7.7) k/uL Monocytes # (0-1.0) k/uL Sodium 133 L 135 L (137-145) mmol/L Potassium 5.5 H (3.5-5.1) mmol/L Carbon Dioxide 16 L (22-30) mmol/L BUN 104 H* 104 H* (9-20) mg/dL Creatinine 13.50 H* 12.82 H* (0.66-1.25) mg/dL Glucose 100 H 57 L (74-99) mg/dL Calcium (8.4-10.2) mg/dL Phosphorus (2.5-4.5) mg/dL Alkaline Phosphatase (38-126) U/L Urine RBC >182 H (0-5) /hpf Urine WBC 153 H (0-5) /hpf 06/11/22 06/11/22 Range/Units 10:28 10:28 WBC 13.5 H (3.8-10.6) k/uL RBC 3.52 L (4.30-5.90) m/uL Hgb 11.0 L (13.0-17.5) gm/dL Hct 33.9 L (39.0-53.0) % Neutrophils # (1.3-7.7) k/uL Monocytes # (0-1.0) k/uL Sodium 135 L (137-145) mmol/L Potassium 5.2 H (3.5-5.1) mmol/L Carbon Dioxide 21 L (22-30) mmol/L BUN 97 H (9-20) mg/dL Creatinine 12.32 H* (0.66-1.25) mg/dL Glucose (74-99) mg/dL Calcium (8.4-10.2) mg/dL Phosphorus 7.5 H (2.5-4.5) mg/dL Alkaline Phosphatase (38-126) U/L Urine RBC (0-5) /hpf Urine WBC (0-5) /hpf Microbiology - Last 24 Hours (Table) 10/28/21 22:45 Urine Culture - Preliminary Urine,Voided Assessment and Plan (1) UTI (urinary tract infection) Current Visit: Yes Status: Acute Code(s): N39.0 - URINARY TRACT INFECTION, SITE NOT SPECIFIED SNOMED Code(s): 88398903 Plan: 1patient presented to hospital with hematuria and frequency of urine which is multifactorial and more likely secondary to his underlying invasive bladder cancer with evidence of hydronephrosis in the distal ureteral calculus status post cystoscopy, possible component of underlying UTI not entirely excluded likely from enteric gram-negative pathogen. 2we will add Rocephin 1 g daily while waiting for the culture to finalize. We will follow on clinical condition and cultures to further adjust medication if needed Thank you for this consultation will follow this patient along with you Time with Patient: Less than 30
--- NOTE | 2021-10-29 23:45 | P.CONS ---
History of Present Illness - Reason for Consult Consult date: 10/29/21 Possible pancreatic mass, bladder tumor - History of Present Illness Patient is an 81-year-old white male with multiple medical problems. The patient had come in to the hospital because of decreased urine output over the last week to 10 days. During that time he had also developed some bleeding in the urine. He was also generally not feeling well and noted some decrease in appetite. His labs showed mildly elevated creatinine at 13.6. He had a CT of the abdomen and pelvis that showed obstruction on the right with hydronephrosis and hydroureter, with a 5 mm distal ureteral stone. In addition there was enlargement of the main pancreatic duct with possibility of a cystic neoplasm or IPMN in the pancreatic head not excluded. There also appeared to be some interstitial pancreatitis in the body and tail. Consult was therefore placed further evaluation and recommendations. In the meantime patient was seen by urology and had a cystoscopy. This revealed fairly extensive bladder tumor, involving the trigone with ureteral orifices not visualized. The patient had maximal possible resection with urology. He denied any prior history of malignancy. He has smoked a pack a day for at least 20 years. He denied heavy alcohol use, but according to the records is apparently a regular alcohol user. No history of pancreatitis. He denied any weight loss. Review of Systems Constitutional: Reports fatigue, Reports weakness Eyes: denies blurred vision, denies pain Ears: deny: decreased hearing, ear discharge, earache, tinnitus Ears, nose, mouth and throat: Denies headache, Denies sore throat Cardiovascular: Reports decreased exercise tolerance Respiratory: Denies cough Gastrointestinal: Denies abdominal pain, Denies diarrhea, Denies nausea, Denies vomiting Genitourinary: Reports as per HPI Musculoskeletal: Reports muscle weakness Integumentary: Denies pruritus, Denies rash Neurological: Reports weakness Psychiatric: Denies anxiety, Denies depression Endocrine: Reports fatigue Hematologic/Lymphatic: Reports as per HPI, Reports easy bruising Past Medical History Past Medical History: No Reported History History of Any Multi-Drug Resistant Organisms: None Reported Past Surgical History: No Surgical Hx Reported Past Psychological History: No Psychological Hx Reported Smoking Status: Current every day smoker Past Alcohol Use History: Daily Additional Past Alcohol Use History / Comment(s): pt states he drinks one alcoholic beverage per day Past Drug Use History: None Reported - Past Family History Mother Additional Family Medical History / Comment(s): breast cancer Father Additional Family Medical History / Comment(s): heart disease Medications and Allergies Home Medications Medication Instructions Recorded Confirmed Type No Known Home Medications 10/28/21 10/28/21 History Allergies Allergy/AdvReac Type Severity Reaction Status Date / Time No Known Allergies Allergy Verified 10/28/21 14:19 Physical Exam Vitals: Vital Signs Temp Pulse Pulse Pulse Resp BP BP 10/29/21 10:33 98.6 F 83 15 147/64 10/29/21 04:55 98 F 89 16 139/67 10/28/21 23:00 98.3 F 75 16 135/70 10/28/21 20:40 97.6 F 87 18 161/74 10/28/21 20:09 78 18 10/28/21 19:35 79 18 10/28/21 19:17 97.2 F L 61 16 10/28/21 17:23 86 172/82 10/28/21 16:39 98.4 F 82 16 10/28/21 13:30 97 16 180/83 BP Pulse Ox 10/29/21 10:33 10/29/21 04:55 95 10/28/21 23:00 94 L 10/28/21 20:40 94 L 10/28/21 20:09 155/72 98 10/28/21 19:35 153/75 97 10/28/21 19:17 133/71 99 10/28/21 17:23 97 10/28/21 16:39 157/74 96 10/28/21 13:30 97 Intake and Output 10/28/21 10/29/21 10/29/21 22:59 06:59 14:59 Intake Total 750 Output Total 75 400 Balance 675 -400 Intake: IV 750 Output: Urine 50 400 Estimated Blood Loss 25 Other: Voiding Method Indwelling Catheter Indwelling Catheter Indwelling Catheter Weight 83.915 kg - Constitutional General appearance: no acute distress - EENT Eyes: EOMI, PERRLA ENT: hearing grossly normal, normal oropharynx - Neck Neck: no lymphadenopathy Thyroid: bilateral: normal size - Respiratory Respiratory: bilateral: diminished (s/o COPD) - Cardiovascular Rhythm: regular Heart sounds: normal: S1, S2 - Gastrointestinal General gastrointestinal: normal bowel sounds, soft - Integumentary Integumentary: normal - Neurologic Neurologic: CNII-XII intact - Musculoskeletal Musculoskeletal: generalized weakness, strength equal bilaterally - Psychiatric Psychiatric: A&O x's 3, appropriate affect Results CBC & Chem 7: 10/29/21 13:39 10/29/21 10:28 Labs: Abnormal Lab Results - Last 24 Hours (Table) 10/28/21 10/28/21 10/28/21 Range/Units 14:26 17:29 22:45 WBC (3.8-10.6) k/uL RBC (4.30-5.90) m/uL Hgb (13.0-17.5) gm/dL Hct (39.0-53.0) % Sodium 133 L (137-145) mmol/L Potassium 5.5 H (3.5-5.1) mmol/L Carbon Dioxide 33 H 16 L (22-30) mmol/L BUN 114 H* 104 H* (9-20) mg/dL Creatinine 12.02 H* 13.50 H* (0.66-1.25) mg/dL Glucose 172 H 100 H (74-99) mg/dL POC Glucose (mg/dL) (75-99) mg/dL Calcium 8.2 L (8.4-10.2) mg/dL Phosphorus (2.5-4.5) mg/dL Urine RBC >182 H (0-5) /hpf Urine WBC 153 H (0-5) /hpf 10/29/21 10/29/21 10/29/21 Range/Units 00:11 10:28 10:28 WBC 13.5 H (3.8-10.6) k/uL RBC 3.52 L (4.30-5.90) m/uL Hgb 11.0 L (13.0-17.5) gm/dL Hct 33.9 L (39.0-53.0) % Sodium 135 L 135 L (137-145) mmol/L Potassium 5.2 H (3.5-5.1) mmol/L Carbon Dioxide 21 L (22-30) mmol/L BUN 104 H* 97 H (9-20) mg/dL Creatinine 12.82 H* 12.32 H* (0.66-1.25) mg/dL Glucose 57 L (74-99) mg/dL POC Glucose (mg/dL) (75-99) mg/dL Calcium (8.4-10.2) mg/dL Phosphorus 7.5 H (2.5-4.5) mg/dL Urine RBC (0-5) /hpf Urine WBC (0-5) /hpf 10/29/21 Range/Units 11:50 WBC (3.8-10.6) k/uL RBC (4.30-5.90) m/uL Hgb (13.0-17.5) gm/dL Hct (39.0-53.0) % Sodium (137-145) mmol/L Potassium (3.5-5.1) mmol/L Carbon Dioxide (22-30) mmol/L BUN (9-20) mg/dL Creatinine (0.66-1.25) mg/dL Glucose (74-99) mg/dL POC Glucose (mg/dL) 109 H (75-99) mg/dL Calcium (8.4-10.2) mg/dL Phosphorus (2.5-4.5) mg/dL Urine RBC (0-5) /hpf Urine WBC (0-5) /hpf Microbiology - Last 24 Hours (Table) 10/28/21 22:45 Urine Culture - Preliminary Urine,Voided Comments: EKG image and report reviewed CT scan - abdomen: report reviewed CT scan - pelvis: report reviewed Assessment and Plan (1) Bladder mass Narrative/Plan: the patient had extensive tumor mass involving the posterior and inferior portion of the bladder, causing probable bilateral ureteral obstruction. Maximal possible resection was done during cystoscopy, but he returned (could not still be visualized. Procedure note was reviewed, and implications discusse d in detail with the patient and multiple family members. They were advised that clinically the findings are highly suspicious for malignancy. We will need to await pathology. If the patient is found to have superficial cancer, then this would be further managed by urology with additional resection, and possible intra vesical therapy. if there is evidence of muscle invasion, then patient will need additional staging for distant disease. If no distant disease is present, then the standard of care is typically a cystectomy with chemotherapy. chemotherapy and radiation also options. If patient is not a candidate for cystectomy that case. Additional recommendations will be made once pathology is available. Current Visit: Yes Status: Acute Code(s): N32.89 - OTHER SPECIFIED DISORDERS OF BLADDER SNOMED Code(s): 576980936 (2) Pancreatic ductal abnormality Narrative/Plan: the pancreatic ductal abnormality and possibility of a mass in the pancreatic head was discussed in detail. They were advised that the findings, no need for that workup, but at this time both benign as well as malignant etiologies are possible. The patient has no symptoms related to this. This was an incidental finding. I recommended that the most definitive way of further workup would be an endoscopic ultrasound which was unable accurate assessment of the nature of the mass, as well as biopsy. If this was found to be suspicious. The patient will be referred for the same as an outpatient, as his other issues, specifically severe kidney injury, are greater priorities. 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
[2021-10-30] MEDS: SODIUM CHLORIDE 0.9% 1,000 ML IV SCH ×2 (05:07→19:08)
[2021-10-30 05:57] LABS: Glucose,Whole Blood 101 mg/dL (75-99)
--- NOTE | 2021-10-30 08:33 | P.PN ---
Subjective Progress Note Date: 10/30/21 Pt doing well today, no new complaints. Still has grossly hemorrhagic urine. Had his dialysis catheter placed yesterday via vascular surgery. Labs today are pending. Pathology from tumor removal from bladder is still pending. Gen: awake, alert HEENT: normocephalic, atraumatic, good hearing acuity, moist mucous membranes Resp: good air exchange, breathing comfortably with no accessory muscle use CVS: good distal perfusion x 4, GI: soft, NTTP, ND : no SPT, no CVAT, maria catheter is present, hemorrhagic urine MSK: no pitting edema, no clubbing Neuro: non-focal, moving all extremities Psych: cooperative, euthymic mood Assessment/plan: Acute kidney injury secondary to obstructive uropathy Bilateral hydronephrosis, right-sided nephrolithiasis Invasive Bladder Carcinoma Hyperkalemia High anion gap metabolic acidosis Hematuria - nephrology and urology recs appreciated - s/p acute hyperkalemia treatment - avoid nephrotoxic agents - Status post ureteral stent placement - Status post dialysis catheter placement - strict I and O - follow renal labs - maria - f/u pathology of bladder mass Pancreatic duct dilatation - oncology eval - likely MRCP early next week ETOH abuse - CIWA - Thiamine - folic acid Tobacco abuse - nicotine replacement Surrogate decision-maker: CODE STATUS:full, no prolonged vent/trach/PEG DVT prophylaxis: Heparin Anticipated discharge date: in 4-[address]: home Objective - Vital Signs Vital signs: Vital Signs Temp 98.2 F 10/30/21 03:36 Pulse 73 10/30/21 03:36 Resp 18 10/30/21 03:36 BP 145/68 10/30/21 03:36 Pulse Ox 93 L 10/30/21 03:36 FiO2 Intake & Output 10/29/21 10/30/21 10/30/21 18:59 06:59 18:59 Intake Total 127 552.196 Output Total 3150 2800 Balance -3023 -2247.804 Weight 76.8 kg Intake: Intake, IV Titration 9 52.196 Amount Diltiazem 125 mg In 9 Sodium Chloride 0.9% 100 ml @ 5 MG/HR 5 mls/hr IV .Q24H [facility] Rx#:[id number] Heparin Sod,Pork in 0.45% 52.196 NaCl 25,000 unit In 0.45 % NaCl 1 250ml.bag @ 12 UNITS/KG/HR 10.07 mls/hr IV .Q24H [facility] Rx#: [id number] Oral 118 Hemodialysis 500 Output: Urine 3150 2300 Hemodialysis 500 Other: Voiding Method Indwelling Catheter Indwelling Catheter - Labs CBC & Chem 7: 10/29/21 13:39 10/29/21 10:28 Labs: Abnormal Lab Results - Last 24 Hours (Table) 10/29/21 10/29/21 10/29/21 Range/Units 10:28 10:28 11:50 WBC 13.5 H (3.8-10.6) k/uL RBC 3.52 L (4.30-5.90) m/uL Hgb 11.0 L (13.0-17.5) gm/dL Hct 33.9 L (39.0-53.0) % Neutrophils # (1.3-7.7) k/uL APTT (22.0-30.0) sec Sodium 135 L (137-145) mmol/L Potassium 5.2 H (3.5-5.1) mmol/L Carbon Dioxide 21 L (22-30) mmol/L BUN 97 H (9-20) mg/dL Creatinine 12.32 H* (0.66-1.25) mg/dL POC Glucose (mg/dL) 109 H (75-99) mg/dL Phosphorus 7.5 H (2.5-4.5) mg/dL 10/29/21 10/29/21 10/29/21 Range/Units 13:39 16:26 19:55 WBC 11.8 H (3.8-10.6) k/uL RBC 3.99 L (4.30-5.90) m/uL Hgb 12.4 L (13.0-17.5) gm/dL Hct 38.4 L (39.0-53.0) % Neutrophils # 9.2 H (1.3-7.7) k/uL APTT 50.6 H (22.0-30.0) sec Sodium (137-145) mmol/L Potassium (3.5-5.1) mmol/L Carbon Dioxide (22-30) mmol/L BUN (9-20) mg/dL Creatinine (0.66-1.25) mg/dL POC Glucose (mg/dL) 106 H (75-99) mg/dL Phosphorus (2.5-4.5) mg/dL 10/29/21 10/30/21 Range/Units 20:05 05:49 WBC (3.8-10.6) k/uL RBC (4.30-5.90) m/uL Hgb (13.0-17.5) gm/dL Hct (39.0-53.0) % Neutrophils # (1.3-7.7) k/uL APTT (22.0-30.0) sec Sodium (137-145) mmol/L Potassium (3.5-5.1) mmol/L Carbon Dioxide (22-30) mmol/L BUN (9-20) mg/dL Creatinine (0.66-1.25) mg/dL POC Glucose (mg/dL) 121 H 101 H (75-99) mg/dL Phosphorus (2.5-4.5) mg/dL Microbiology - Last 24 Hours (Table) 10/28/21 22:45 Urine Culture - Preliminary Urine,Voided
[2021-10-30 09:12] LABS: INR 1.1 (<1.2); Partial Thromboplastin Time 39.6 sec (22.0-30.0); Prothrombin Time 11.5 sec (9.0-12.0)
[2021-10-30 09:30] LABS: Calcium 8.3 mg/dL (8.4-10.2); Magnesium 1.7 mg/dL (1.6-2.3); Potassium 4.1 mmol/L (3.5-5.1)
[2021-10-30] MEDS: METOPROLOL TARTRATE 25 MG TAB PO SCH ×2 (09:31→21:14)
--- NOTE | 2021-10-30 09:51 | P.PN ---
Subjective Patient is seen in follow for acute kidney injury. Patient noted to have bilateral hydronephrosis and underwent cystoscopy with transurethral resection of bladder tumor on 10/28/2021. Has a Huggins catheter. Urine output near 6 L in the last 24 hours. Underwent 1 treatment of hemodialysis 10/29/2021. Has a femoral catheter. Hemodynamically stable. Oral intake is fair. Vital signs are stable. General: Awake. No acute distress. HEENT: Head exam is unremarkable. LUNGS: Breath sounds decreased. HEART: Rate and Rhythm are regular. ABDOMEN: Soft, no distention. EXTREMITITES: No edema. Objective - Vital Signs Vital signs: Vital Signs Temp 98.2 F 10/30/21 09:22 Pulse 76 10/30/21 09:22 Resp 18 10/30/21 03:36 BP 156/71 10/30/21 09:22 Pulse Ox 95 10/30/21 09:22 FiO2 Intake & Output 10/29/21 10/30/21 10/30/21 18:59 06:59 18:59 Intake Total 127 552.196 Output Total 3150 2800 Balance -3023 -2247.804 Weight 76.8 kg Intake: Intake, IV Titration 9 52.196 Amount Diltiazem 125 mg In 9 Sodium Chloride 0.9% 100 ml @ 5 MG/HR 5 mls/hr IV .Q24H [facility] Rx#:[id number] Heparin Sod,Pork in 0.45% 52.196 NaCl 25,000 unit In 0.45 % NaCl 1 250ml.bag @ 12 UNITS/KG/HR 10.07 mls/hr IV .Q24H [facility] Rx#: [id number] Oral 118 Hemodialysis 500 Output: Urine 3150 2300 Hemodialysis 500 Other: Voiding Method Indwelling Catheter Indwelling Catheter - Labs CBC & Chem 7: 10/29/21 13:39 10/30/21 08:29 Labs: Abnormal Lab Results - Last 24 Hours (Table) 10/29/21 10/29/21 10/29/21 Range/Units 10:28 10:28 11:50 WBC 13.5 H (3.8-10.6) k/uL RBC 3.52 L (4.30-5.90) m/uL Hgb 11.0 L (13.0-17.5) gm/dL Hct 33.9 L (39.0-53.0) % Neutrophils # (1.3-7.7) k/uL APTT (22.0-30.0) sec Sodium 135 L (137-145) mmol/L Potassium 5.2 H (3.5-5.1) mmol/L Chloride (98-107) mmol/L Carbon Dioxide 21 L (22-30) mmol/L BUN 97 H (9-20) mg/dL Creatinine 12.32 H* (0.66-1.25) mg/dL POC Glucose (mg/dL) 109 H (75-99) mg/dL Calcium (8.4-10.2) mg/dL Phosphorus 7.5 H (2.5-4.5) mg/dL 10/29/21 10/29/21 10/29/21 Range/Units 13:39 16:26 19:55 WBC 11.8 H (3.8-10.6) k/uL RBC 3.99 L (4.30-5.90) m/uL Hgb 12.4 L (13.0-17.5) gm/dL Hct 38.4 L (39.0-53.0) % Neutrophils # 9.2 H (1.3-7.7) k/uL APTT 50.6 H (22.0-30.0) sec Sodium (137-145) mmol/L Potassium (3.5-5.1) mmol/L Chloride (98-107) mmol/L Carbon Dioxide (22-30) mmol/L BUN (9-20) mg/dL Creatinine (0.66-1.25) mg/dL POC Glucose (mg/dL) 106 H (75-99) mg/dL Calcium (8.4-10.2) mg/dL Phosphorus (2.5-4.5) mg/dL 10/29/21 10/30/21 10/30/21 Range/Units 20:05 05:49 08:29 WBC (3.8-10.6) k/uL RBC (4.30-5.90) m/uL Hgb (13.0-17.5) gm/dL Hct (39.0-53.0) % Neutrophils # (1.3-7.7) k/uL APTT 39.6 H (22.0-30.0) sec Sodium (137-145) mmol/L Potassium (3.5-5.1) mmol/L Chloride (98-107) mmol/L Carbon Dioxide (22-30) mmol/L BUN (9-20) mg/dL Creatinine (0.66-1.25) mg/dL POC Glucose (mg/dL) 121 H 101 H (75-99) mg/dL Calcium (8.4-10.2) mg/dL Phosphorus (2.5-4.5) mg/dL 10/30/21 Range/Units 08:29 WBC (3.8-10.6) k/uL RBC (4.30-5.90) m/uL Hgb (13.0-17.5) gm/dL Hct (39.0-53.0) % Neutrophils # (1.3-7.7) k/uL APTT (22.0-30.0) sec Sodium (137-145) mmol/L Potassium (3.5-5.1) mmol/L Chloride 108 H (98-107) mmol/L Carbon Dioxide (22-30) mmol/L BUN 53 H (9-20) mg/dL Creatinine 6.74 H (0.66-1.25) mg/dL POC Glucose (mg/dL) (75-99) mg/dL Calcium 8.3 L (8.4-10.2) mg/dL Phosphorus (2.5-4.5) mg/dL Assessment and Plan Plan: Assessment: 1. Acute kidney injury secondary to obstructive uropathy. Creatinine 13.67 on admission - 6.74 today. Unknown baseline renal function. Underwent 1 treatment of hemodialysis 10/29/2021. Has a femoral catheter. 2. Bilateral nephrolithiasis and hydronephrosis. Status post cystoscopy with transurethral resection of bladder tumor on 10/28/2021. Urology following. Has a Huggins catheter. 3. Hyperkalemia secondary to acute kidney injury and metabolic acidosis. Improved. 4. Metabolic acidosis secondary to acute kidney injury. Status post bicarb drip. Improved. 5. Pancreatic duct dilatation. Questionable malignancy. Oncology following. 6. Hyperphosphatemia secondary to acute kidney injury. Expect improvement with improved urine output and recovery of renal function. Plan: Hold hemodialysis. Expect recovery of renal function. If renal function continues to improve, will DC femoral dialysis catheter. Maintain normal saline at 70 mL an hour. Continue to monitor renal function and urine output. Repeat phosphorus level tomorrow.
[2021-10-30 09:53] LABS: Basophils # (A) 0.1 k/uL (0-0.2); Basophils % (A) 0 %; Eosinophils # (A) 0.2 k/uL (0-0.7); Eosinophils % (A) 2 %; HCT 37.4 % (39.0-53.0); HGB 11.6 gm/dL (13.0-17.5); Lymphocytes # (A) 1.8 k/uL (1.0-4.8); Lymphocytes % (A) 15 %; MCH 30.2 pg (25.0-35.0); MCV 97.2 fL (80.0-100.0); Mean Platelet Volume 8.7; Monocytes # (A) 0.8 k/uL (0-1.0); Monocytes % (A) 6 %; Neutrophils # (A) 9.2 k/uL (1.3-7.7); Neutrophils % (A) 76 %; Platelet Count 206 k/uL (150-450); RBC 3.85 m/uL (4.30-5.90); RDW 12.7 % (11.5-15.5); WBC 12.2 k/uL (3.8-10.6)
[2021-10-30 10:15] LABS: Hepatitis B Surface AB- Quant 3.5 mIU/mL; Hepatitis B Surface Antibody Nonreactive (Nonreactive)
[2021-10-30 10:16] LABS: Hepatitis B Surface Antigen Nonreactive (Nonreactive)
[2021-10-30 11:28] LABS: Calcium 8.1 mg/dL (8.4-10.2); Potassium 4.4 mmol/L (3.5-5.1)
[2021-10-30] MEDS: HEPARIN SOD,PORK IN 0.45% NACL 25,000 UNIT in 0.45% NACL 1 250ML.BAG IV SCH (11:48)
[2021-10-30 11:57] LABS: Glucose,Whole Blood 90 mg/dL (75-99)
--- NOTE | 2021-10-30 12:29 | P.PN ---
Subjective Progress Note Date: 10/30/21 The patient is in the hospital with acute renal failure due to hydronephrosis secondary to bladder mass. He underwent endoscopy with resection of bladder tumor. Must of unroofed some obstruction of the ureters his he has diuresed a lot of fluid in the short period of time. His creatinine is down to 6 however he was dialyzed yesterday. He is feeling better. Pathology is pending. I will hold off on nephrostomy tubes until we see the pathology of his tumor so we can make appropriate recommendations for treatment. 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 Objective - Vital Signs Vital signs: Vital Signs Temp 98.4 F 10/30/21 11:42 Pulse 76 10/30/21 11:42 Resp 14 10/30/21 11:42 BP 178/79 10/30/21 11:42 Pulse Ox 96 10/30/21 11:42 FiO2 Intake & Output 10/29/21 10/30/21 10/30/21 18:59 06:59 18:59 Intake Total 127 552.196 146.659 Output Total 3150 2800 Balance -3023 -2247.804 146.659 Weight 76.8 kg Intake: Intake, IV Titration 9 52.196 146.659 Amount Diltiazem 125 mg In 9 Sodium Chloride 0.9% 100 ml @ 5 MG/HR 5 mls/hr IV .Q24H [facility] Rx#:[id number] Heparin Sod,Pork in 0.45% 52.196 146.659 NaCl 25,000 unit In 0.45 % NaCl 1 250ml.bag @ 12 UNITS/KG/HR 10.07 mls/hr IV .Q24H [facility] Rx#: [id number] Oral 118 Hemodialysis 500 Output: Urine 3150 2300 Hemodialysis 500 Other: Voiding Method Indwelling Catheter Indwelling Catheter - Labs CBC & Chem 7: 10/30/21 08:29 10/30/21 10:28 Labs: Abnormal Lab Results - Last 24 Hours (Table) 10/29/21 10/29/21 10/29/21 Range/Units 13:39 16:26 19:55 WBC 11.8 H (3.8-10.6) k/uL RBC 3.99 L (4.30-5.90) m/uL Hgb 12.4 L (13.0-17.5) gm/dL Hct 38.4 L (39.0-53.0) % Neutrophils # 9.2 H (1.3-7.7) k/uL APTT 50.6 H (22.0-30.0) sec Chloride (98-107) mmol/L BUN (9-20) mg/dL Creatinine (0.66-1.25) mg/dL POC Glucose (mg/dL) 106 H (75-99) mg/dL Calcium (8.4-10.2) mg/dL 10/29/21 10/30/21 10/30/21 Range/Units 20:05 05:49 08:29 WBC 12.2 H (3.8-10.6) k/uL RBC 3.85 L (4.30-5.90) m/uL Hgb 11.6 L (13.0-17.5) gm/dL Hct 37.4 L (39.0-53.0) % Neutrophils # 9.2 H (1.3-7.7) k/uL APTT (22.0-30.0) sec Chloride (98-107) mmol/L BUN (9-20) mg/dL Creatinine (0.66-1.25) mg/dL POC Glucose (mg/dL) 121 H 101 H (75-99) mg/dL Calcium (8.4-10.2) mg/dL 10/30/21 10/30/21 10/30/21 Range/Units 08:29 08:29 10:28 WBC (3.8-10.6) k/uL RBC (4.30-5.90) m/uL Hgb (13.0-17.5) gm/dL Hct (39.0-53.0) % Neutrophils # (1.3-7.7) k/uL APTT 39.6 H (22.0-30.0) sec Chloride 108 H (98-107) mmol/L BUN 53 H 54 H (9-20) mg/dL Creatinine 6.74 H 6.36 H (0.66-1.25) mg/dL POC Glucose (mg/dL) (75-99) mg/dL Calcium 8.3 L 8.1 L (8.4-10.2) mg/dL Microbiology - Last 24 Hours (Table) 10/28/21 22:45 Urine Culture - Final Urine,Voided
[2021-10-30 16:22] LABS: Glucose,Whole Blood 121 mg/dL (75-99)
[2021-10-30 19:52] LABS: Glucose,Whole Blood 127 mg/dL (75-99)
[2021-10-31] MEDS ORDERED: hydrALAZINE HCL 25 MG TAB PO STA (00:17)
[2021-10-31] MEDS: HEPARIN SOD,PORK IN 0.45% NACL 25,000 UNIT in 0.45% NACL 1 250ML.BAG IV SCH (05:02)
[2021-10-31] MEDS: SODIUM CHLORIDE 0.9% 1,000 ML IV SCH ×2 (05:03→20:23)
[2021-10-31 06:05] LABS: Glucose,Whole Blood 110 mg/dL (75-99)
[2021-10-31 07:50] LABS: Basophils % (A) 0 %; Eosinophils # (A) 0.4 k/uL (0-0.7); Eosinophils % (A) 3 %; HCT 33.9 % (39.0-53.0); HGB 10.8 gm/dL (13.0-17.5); Lymphocytes # (A) 2.1 k/uL (1.0-4.8); Lymphocytes % (A) 17 %; MCH 31.4 pg (25.0-35.0); MCHC 31.9 g/dL (31.0-37.0); MCV 98.6 fL (80.0-100.0); Mean Platelet Volume 8.9; Monocytes # (A) 0.8 k/uL (0-1.0); Monocytes % (A) 6 %; Neutrophils # (A) 9.1 k/uL (1.3-7.7); Neutrophils % (A) 73 %; Platelet Count 215 k/uL (150-450); RBC 3.44 m/uL (4.30-5.90); RDW 12.6 % (11.5-15.5); WBC 12.6 k/uL (3.8-10.6)
[2021-10-31 08:39] LABS: Magnesium 1.6 mg/dL (1.6-2.3); Phosphorus 4.2 mg/dL (2.5-4.5)
[2021-10-31] MEDS: METOPROLOL TARTRATE 25 MG TAB PO SCH ×2 (08:44→20:23)
--- NOTE | 2021-10-31 09:59 | P.PN ---
Subjective Progress Note Date: 10/31/21 Pt doing well today, no new complaints. Still has grossly hemorrhagic urine, now passing blood clots. Had his dialysis catheter placed via vascular surgery and had 1 session of iHD. Pathology from tumor removal from bladder is still pending. Heparin gtt d/c'd due to passing blood clots in urine. Hgb is 10.8 from 13.1 Gen: awake, alert HEENT: normocephalic, atraumatic, good hearing acuity, moist mucous membranes Resp: good air exchange, breathing comfortably with no accessory muscle use CVS: good distal perfusion x 4, GI: soft, NTTP, ND : no SPT, no CVAT, maria catheter is present, hemorrhagic urine MSK: no pitting edema, no clubbing Neuro: non-focal, moving all extremities Psych: cooperative, euthymic mood Assessment/plan: Acute kidney injury secondary to obstructive uropathy Bilateral hydronephrosis, right-sided nephrolithiasis Invasive Bladder Carcinoma Hyperkalemia High anion gap metabolic acidosis Hematuria - nephrology and urology recs appreciated - s/p acute hyperkalemia treatment - avoid nephrotoxic agents - Status post ureteral stent placement - Status post dialysis catheter placement - strict I and O - follow renal labs - maria - f/u pathology of bladder mass Paroxysmal Atrial Fibrillation with RVR - was on heparin gtt, now on hold due to passing blood clots - metoprolol 25mg BID Pancreatic duct dilatation - oncology eval - likely MRCP early next week ETOH abuse - CIWA - Thiamine - folic acid Tobacco abuse - nicotine replacement Surrogate decision-maker: CODE STATUS:full, no prolonged vent/trach/PEG DVT prophylaxis: Heparin Anticipated discharge date: in 4-[address]: home Objective - Vital Signs Vital signs: Vital Signs Temp 97.8 F 10/31/21 08:47 Pulse 69 10/31/21 08:47 Resp 18 10/31/21 08:47 BP 158/79 10/31/21 08:47 Pulse Ox 94 L 10/31/21 08:47 FiO2 Intake & Output 10/30/21 10/31/21 10/31/21 18:59 06:59 18:59 Intake Total 386.659 207.072 41.173 Output Total 2675 1200 Balance -2288.341 -992.928 41.173 Intake: Intake, IV Titration 146.659 207.072 41.173 Amount Heparin Sod,Pork in 0.45% 146.659 207.072 41.173 NaCl 25,000 unit In 0.45 % NaCl 1 250ml.bag @ 12 UNITS/KG/HR 10.07 mls/hr IV .Q24H [facility] Rx#: [id number] Oral 240 Output: Urine 2675 1200 Uretheral (Maria) 700 Other: Voiding Method Indwelling Catheter Indwelling Catheter Indwelling Catheter - Labs CBC & Chem 7: 10/31/21 07:14 10/30/21 10:28 Labs: Abnormal Lab Results - Last 24 Hours (Table) 10/30/21 10/30/21 10/30/21 Range/Units 10:28 16:20 19:51 WBC (3.8-10.6) k/uL RBC (4.30-5.90) m/uL Hgb (13.0-17.5) gm/dL Hct (39.0-53.0) % Neutrophils # (1.3-7.7) k/uL APTT (22.0-30.0) sec BUN 54 H (9-20) mg/dL Creatinine 6.36 H (0.66-1.25) mg/dL POC Glucose (mg/dL) 121 H 127 H (75-99) mg/dL Calcium 8.1 L (8.4-10.2) mg/dL 10/30/21 10/31/21 10/31/21 Range/Units 21:02 01:24 06:02 WBC (3.8-10.6) k/uL RBC (4.30-5.90) m/uL Hgb (13.0-17.5) gm/dL Hct (39.0-53.0) % Neutrophils # (1.3-7.7) k/uL APTT 46.7 H 40.3 H (22.0-30.0) sec BUN (9-20) mg/dL Creatinine (0.66-1.25) mg/dL POC Glucose (mg/dL) 110 H (75-99) mg/dL Calcium (8.4-10.2) mg/dL 10/31/21 10/31/21 Range/Units 07:14 07:14 WBC 12.6 H (3.8-10.6) k/uL RBC 3.44 L (4.30-5.90) m/uL Hgb 10.8 L (13.0-17.5) gm/dL Hct 33.9 L (39.0-53.0) % Neutrophils # 9.1 H (1.3-7.7) k/uL APTT 44.0 H (22.0-30.0) sec BUN (9-20) mg/dL Creatinine (0.66-1.25) mg/dL POC Glucose (mg/dL) (75-99) mg/dL Calcium (8.4-10.2) mg/dL Microbiology - Last 24 Hours (Table) 10/28/21 22:45 Urine Culture - Final Urine,Voided
[2021-10-31 11:02] LABS: Calcium 8.4 mg/dL (8.4-10.2)
--- NOTE | 2021-10-31 11:46 | P.PN ---
Subjective Patient is seen for follow-up for acute kidney injury. He had bilateral hydronephrosis and underwent cystoscopy with transurethral resection of bladder tumor on 10/28/2021. Patient currently has an indwelling Huggins catheter. He has had good urine output. Renal function has been improving. He did have one treatment of hemodialysis and currently dialysis has been on hold. Last dialysis was on 10/29/2021 Serum creatinine down to 4.7 mg/dL today. Objective - Vital Signs Vital signs: Vital Signs Temp 97.8 F 10/31/21 08:47 Pulse 69 10/31/21 08:47 Resp 18 10/31/21 08:47 BP 158/79 10/31/21 08:47 Pulse Ox 94 L 10/31/21 08:47 FiO2 Intake & Output 10/30/21 10/31/21 10/31/21 18:59 06:59 18:59 Intake Total 386.659 207.072 41.173 Output Total 2675 1200 550 Balance -2288.341 -992.928 -508.827 Intake: Intake, IV Titration 146.659 207.072 41.173 Amount Heparin Sod,Pork in 0.45% 146.659 207.072 41.173 NaCl 25,000 unit In 0.45 % NaCl 1 250ml.bag @ 12 UNITS/KG/HR 10.07 mls/hr IV .Q24H [facility] Rx#: [id number] Oral 240 Output: Urine 2675 1200 550 Uretheral (Huggins) 700 Other: Voiding Method Indwelling Catheter Indwelling Catheter Indwelling Catheter - Exam Awake, comfortable, not in any acute distress Examination of the heart S1 and S2 Examination lungs bilateral breath sounds are heard Abdomen is soft nontender Exertion lower extremity shows no evidence of edema VAL[place] [facility]NER exam grossly intact - Labs CBC & Chem 7: 10/31/21 07:14 10/31/21 07:14 Labs: Abnormal Lab Results - Last 24 Hours (Table) 10/30/21 10/30/21 10/30/21 Range/Units 16:20 19:51 21:02 WBC (3.8-10.6) k/uL RBC (4.30-5.90) m/uL Hgb (13.0-17.5) gm/dL Hct (39.0-53.0) % Neutrophils # (1.3-7.7) k/uL APTT 46.7 H (22.0-30.0) sec Chloride (98-107) mmol/L Carbon Dioxide (22-30) mmol/L BUN (9-20) mg/dL Creatinine (0.66-1.25) mg/dL POC Glucose (mg/dL) 121 H 127 H (75-99) mg/dL 10/31/21 10/31/21 10/31/21 Range/Units 01:24 06:02 07:14 WBC 12.6 H (3.8-10.6) k/uL RBC 3.44 L (4.30-5.90) m/uL Hgb 10.8 L (13.0-17.5) gm/dL Hct 33.9 L (39.0-53.0) % Neutrophils # 9.1 H (1.3-7.7) k/uL APTT 40.3 H (22.0-30.0) sec Chloride (98-107) mmol/L Carbon Dioxide (22-30) mmol/L BUN (9-20) mg/dL Creatinine (0.66-1.25) mg/dL POC Glucose (mg/dL) 110 H (75-99) mg/dL 10/31/21 10/31/21 Range/Units 07:14 07:14 WBC (3.8-10.6) k/uL RBC (4.30-5.90) m/uL Hgb (13.0-17.5) gm/dL Hct (39.0-53.0) % Neutrophils # (1.3-7.7) k/uL APTT 44.0 H (22.0-30.0) sec Chloride 108 H (98-107) mmol/L Carbon Dioxide 21 L (22-30) mmol/L BUN 39 H (9-20) mg/dL Creatinine 4.77 H (0.66-1.25) mg/dL POC Glucose (mg/dL) (75-99) mg/dL Microbiology - Last 24 Hours (Table) 10/28/21 22:45 Urine Culture - Final Urine,Voided Assessment and Plan Assessment: 1. Acute kidney injury secondary to obstructive uropathy. Creatinine 13.6 on initial admission. Down to 4.7 today. Status post one treatment of h emodialysis on 10/29/2021. Currently with indwelling Huggins catheter he adrenal function continues to improve. We will DC femoral catheter in the next 24-48 hours 2. Bilateral nephrolithiasis and hydronephrosis status post cystoscopy with transurethral resection of bladder tumor on 10/28/2021. Currently with indwelling Huggins catheter 3. Hyperkalemia associated with acute kidney injury metabolic acidosis currently improved 4. Metabolic acidosis secondary to acute kidney injury currently improved 5. Pancreatic duct allocation questionable malignancy being followed by oncology Plan: Continue to hold dialysis DC femoral dialysis catheter in another 24-48 hours Encourage increased oral intake
[2021-10-31 11:54] LABS: Glucose,Whole Blood 144 mg/dL (75-99)
--- NOTE | 2021-10-31 12:11 | P.PN ---
Subjective Progress Note Date: 10/31/21 Catheter required irrigation overnight, urine was hematuric this morning. He is on hold. Denies any abdominal pain, creatinine trending down now 4.77 Objective - Vital Signs Vital signs: Vital Signs Temp 97.8 F 10/31/21 08:47 Pulse 69 10/31/21 08:47 Resp 18 10/31/21 08:47 BP 158/79 10/31/21 08:47 Pulse Ox 94 L 10/31/21 08:47 FiO2 Intake & Output 10/30/21 10/31/21 10/31/21 18:59 06:59 18:59 Intake Total 386.659 207.072 41.173 Output Total 2675 1200 550 Balance -2288.341 -992.928 -508.827 Intake: Intake, IV Titration 146.659 207.072 41.173 Amount Heparin Sod,Pork in 0.45% 146.659 207.072 41.173 NaCl 25,000 unit In 0.45 % NaCl 1 250ml.bag @ 12 UNITS/KG/HR 10.07 mls/hr IV .Q24H [facility] Rx#: [id number] Oral 240 Output: Urine 2675 1200 550 Uretheral (Huggins) 700 Other: Voiding Method Indwelling Catheter Indwelling Catheter Indwelling Catheter - Constitutional General appearance: Present: no acute distress - Gastrointestinal General gastrointestinal: Present: soft. Absent: distended - Genitourinary Genitourinary Comment(s): Huggins with light red urine - Labs CBC & Chem 7: 10/31/21 07:14 10/31/21 07:14 Labs: Abnormal Lab Results - Last 24 Hours (Table) 10/30/21 10/30/21 10/30/21 Range/Units 16:20 19:51 21:02 WBC (3.8-10.6) k/uL RBC (4.30-5.90) m/uL Hgb (13.0-17.5) gm/dL Hct (39.0-53.0) % Neutrophils # (1.3-7.7) k/uL APTT 46.7 H (22.0-30.0) sec Chloride (98-107) mmol/L Carbon Dioxide (22-30) mmol/L BUN (9-20) mg/dL Creatinine (0.66-1.25) mg/dL POC Glucose (mg/dL) 121 H 127 H (75-99) mg/dL 10/31/21 10/31/21 10/31/21 Range/Units 01:24 06:02 07:14 WBC 12.6 H (3.8-10.6) k/uL RBC 3.44 L (4.30-5.90) m/uL Hgb 10.8 L (13.0-17.5) gm/dL Hct 33.9 L (39.0-53.0) % Neutrophils # 9.1 H (1.3-7.7) k/uL APTT 40.3 H (22.0-30.0) sec Chloride (98-107) mmol/L Carbon Dioxide (22-30) mmol/L BUN (9-20) mg/dL Creatinine (0.66-1.25) mg/dL POC Glucose (mg/dL) 110 H (75-99) mg/dL 10/31/21 10/31/21 10/31/21 Range/Units 07:14 07:14 11:52 WBC (3.8-10.6) k/uL RBC (4.30-5.90) m/uL Hgb (13.0-17.5) gm/dL Hct (39.0-53.0) % Neutrophils # (1.3-7.7) k/uL APTT 44.0 H (22.0-30.0) sec Chloride 108 H (98-107) mmol/L Carbon Dioxide 21 L (22-30) mmol/L BUN 39 H (9-20) mg/dL Creatinine 4.77 H (0.66-1.25) mg/dL POC Glucose (mg/dL) 144 H (75-99) mg/dL Microbiology - Last 24 Hours (Table) 10/28/21 22:45 Urine Culture - Final Urine,Voided Assessment and Plan Assessment: 81 yo make admitted [facility]IANELA with invasive bladder mass obstructing both ureters leading to renal and failure bilateral hydronephrosis. Underwent TURBT by Dr. Huber on October 28, pathology is pending. Creatinine this morning is 4.77. Urine is hematuric, patient was on a heparin drip, currently on hold. -Giving gross hematuria recommend holding his heparin drip. -We'll keep Huggins in place for now. -Continue to trend creatinine -Follow up on pathology
--- NOTE | 2021-10-31 13:19 | P.GSCN ---
History of Present Illness History of present illness: 81-year-old white male, I was consulted for placement of urgent dialysis catheter. Patient has history of bilateral hydronephrosis and also patient had a bladder tumor removed patient came with hyperkalemia and acute kidney injury patient scheduled to have a callus catheter placement Patient was seen in the room neck supple trachea central Chest is clear auscultation few crackles at the lung bases abdomen is soft Vascular femorals are palpable bilateral Plan is placement of dialysis catheter risk and complication discussed Past Medical History Past Medical History: No Reported History History of Any Multi-Drug Resistant Organisms: None Reported Past Surgical History: No Surgical Hx Reported Past Psychological History: No Psychological Hx Reported Smoking Status: Current every day smoker Past Alcohol Use History: Daily Additional Past Alcohol Use History / Comment(s): pt states he drinks one alcoholic beverage per day Past Drug Use History: None Reported - Past Family History Mother Additional Family Medical History / Comment(s): breast cancer Father Additional Family Medical History / Comment(s): heart disease Medications and Allergies Home Medications Medication Instructions Recorded Confirmed Type No Known Home Medications 10/28/21 10/28/21 History Allergies Allergy/AdvReac Type Severity Reaction Status Date / Time No Known Allergies Allergy Verified 10/28/21 14:19 Surgical - Exam Vital Signs Temp Pulse Resp BP Pulse Ox 98.3 F 93 16 146/69 98 10/28/21 11:07 10/28/21 11:07 10/28/21 11:07 10/28/21 11:07 10/28/21 11:07 Results - Labs 10/31/21 07:14 10/31/21 07:14 Abnormal Lab Results - Last 24 Hours (Table) 10/30/21 10/30/21 10/30/21 Range/Units 16:20 19:51 21:02 WBC (3.8-10.6) k/uL RBC (4.30-5.90) m/uL Hgb (13.0-17.5) gm/dL Hct (39.0-53.0) % Neutrophils # (1.3-7.7) k/uL APTT 46.7 H (22.0-30.0) sec Chloride (98-107) mmol/L Carbon Dioxide (22-30) mmol/L BUN (9-20) mg/dL Creatinine (0.66-1.25) mg/dL POC Glucose (mg/dL) 121 H 127 H (75-99) mg/dL 10/31/21 10/31/21 10/31/21 Range/Units 01:24 06:02 07:14 WBC 12.6 H (3.8-10.6) k/uL RBC 3.44 L (4.30-5.90) m/uL Hgb 10.8 L (13.0-17.5) gm/dL Hct 33.9 L (39.0-53.0) % Neutrophils # 9.1 H (1.3-7.7) k/uL APTT 40.3 H (22.0-30.0) sec Chloride (98-107) mmol/L Carbon Dioxide (22-30) mmol/L BUN (9-20) mg/dL Creatinine (0.66-1.25) mg/dL POC Glucose (mg/dL) 110 H (75-99) mg/dL 10/31/21 10/31/21 10/31/21 Range/Units 07:14 07:14 11:52 WBC (3.8-10.6) k/uL RBC (4.30-5.90) m/uL Hgb (13.0-17.5) gm/dL Hct (39.0-53.0) % Neutrophils # (1.3-7.7) k/uL APTT 44.0 H (22.0-30.0) sec Chloride 108 H (98-107) mmol/L Carbon Dioxide 21 L (22-30) mmol/L BUN 39 H (9-20) mg/dL Creatinine 4.77 H (0.66-1.25) mg/dL POC Glucose (mg/dL) 144 H (75-99) mg/dL Microbiology - Last 24 Hours (Table) 10/28/21 22:45 Urine Culture - Final Urine,Voided Diabetes panel 10/31/21 Range/Units 07:14 Sodium 141 (137-145) mmol/L Potassium 4.0 (3.5-5.1) mmol/L Chloride 108 H (98-107) mmol/L Carbon Dioxide 21 L (22-30) mmol/L BUN 39 H (9-20) mg/dL Creatinine 4.77 H (0.66-1.25) mg/dL Glucose 94 (74-99) mg/dL Calcium 8.4 (8.4-10.2) mg/dL Calcium panel 10/31/21 10/31/21 Range/Units 07:14 07:14 Calcium 8.4 (8.4-10.2) mg/dL Phosphorus 4.2 (2.5-4.5) mg/dL Pituitary panel 10/31/21 Range/Units 07:14 Sodium 141 (137-145) mmol/L Potassium 4.0 (3.5-5.1) mmol/L Chloride 108 H (98-107) mmol/L Carbon Dioxide 21 L (22-30) mmol/L BUN 39 H (9-20) mg/dL Creatinine 4.77 H (0.66-1.25) mg/dL Glucose 94 (74-99) mg/dL Calcium 8.4 (8.4-10.2) mg/dL Adrenal panel 10/31/21 Range/Units 07:14 Sodium 141 (137-145) mmol/L Potassium 4.0 (3.5-5.1) mmol/L Chloride 108 H (98-107) mmol/L Carbon Dioxide 21 L (22-30) mmol/L BUN 39 H (9-20) mg/dL Creatinine 4.77 H (0.66-1.25) mg/dL Glucose 94 (74-99) mg/dL Calcium 8.4 (8.4-10.2) mg/dL
--- NOTE | 2021-10-31 15:08 | P.PN ---
Subjective Progress Note Date: 10/31/21 Principal diagnosis: New Bladder Mass Patient up in chair, no new complaints, awaiting plan from urology Objective - Vital Signs Vital signs: Vital Signs Temp 97.8 F 10/31/21 08:47 Pulse 69 10/31/21 08:47 Resp 18 10/31/21 08:47 BP 158/79 10/31/21 08:47 Pulse Ox 94 L 10/31/21 08:47 FiO2 Intake & Output 10/30/21 10/31/21 10/31/21 18:59 06:59 18:59 Intake Total 386.659 207.072 41.173 Output Total 2675 1200 Balance -2288.341 -992.928 41.173 Intake: Intake, IV Titration 146.659 207.072 41.173 Amount Heparin Sod,Pork in 0.45% 146.659 207.072 41.173 NaCl 25,000 unit In 0.45 % NaCl 1 250ml.bag @ 12 UNITS/KG/HR 10.07 mls/hr IV .Q24H [facility] Rx#: [id number] Oral 240 Output: Urine 2675 1200 Uretheral (Huggins) 700 Other: Voiding Method Indwelling Catheter Indwelling Catheter Indwelling Catheter - Exam - Constitutional General appearance: no acute distress - EENT Eyes: EOMI, PERRLA ENT: hearing grossly normal, normal oropharynx - Neck Neck: no lymphadenopathy Thyroid: bilateral: normal size - Respiratory Respiratory: bilateral: diminished (s/o COPD) - Cardiovascular Rhythm: regular Heart sounds: normal: S1, S2 - Gastrointestinal General gastrointestinal: normal bowel sounds, soft - Integumentary Integumentary: normal - Neurologic Neurologic: CNII-XII intact - Musculoskeletal Musculoskeletal: generalized weakness, strength equal bilaterally - Psychiatric Psychiatric: A&O x's 3, appropriate affect - Labs CBC & Chem 7: 10/31/21 07:14 10/31/21 07:14 Labs: Abnormal Lab Results - Last 24 Hours (Table) 10/30/21 10/30/21 10/30/21 Range/Units 08:29 08:29 08:29 WBC 12.2 H (3.8-10.6) k/uL RBC 3.85 L (4.30-5.90) m/uL Hgb 11.6 L (13.0-17.5) gm/dL Hct 37.4 L (39.0-53.0) % Neutrophils # 9.2 H (1.3-7.7) k/uL APTT 39.6 H (22.0-30.0) sec Chloride 108 H (98-107) mmol/L BUN 53 H (9-20) mg/dL Creatinine 6.74 H (0.66-1.25) mg/dL POC Glucose (mg/dL) (75-99) mg/dL Calcium 8.3 L (8.4-10.2) mg/dL 10/30/21 10/30/21 10/30/21 Range/Units 10:28 16:20 19:51 WBC (3.8-10.6) k/uL RBC (4.30-5.90) m/uL Hgb (13.0-17.5) gm/dL Hct (39.0-53.0) % Neutrophils # (1.3-7.7) k/uL APTT (22.0-30.0) sec Chloride (98-107) mmol/L BUN 54 H (9-20) mg/dL Creatinine 6.36 H (0.66-1.25) mg/dL POC Glucose (mg/dL) 121 H 127 H (75-99) mg/dL Calcium 8.1 L (8.4-10.2) mg/dL 10/30/21 10/31/21 10/31/21 Range/Units 21:02 01:24 06:02 WBC (3.8-10.6) k/uL RBC (4.30-5.90) m/uL Hgb (13.0-17.5) gm/dL Hct (39.0-53.0) % Neutrophils # (1.3-7.7) k/uL APTT 46.7 H 40.3 H (22.0-30.0) sec Chloride (98-107) mmol/L BUN (9-20) mg/dL Creatinine (0.66-1.25) mg/dL POC Glucose (mg/dL) 110 H (75-99) mg/dL Calcium (8.4-10.2) mg/dL 10/31/21 10/31/21 Range/Units 07:14 07:14 WBC 12.6 H (3.8-10.6) k/uL RBC 3.44 L (4.30-5.90) m/uL Hgb 10.8 L (13.0-17.5) gm/dL Hct 33.9 L (39.0-53.0) % Neutrophils # 9.1 H (1.3-7.7) k/uL APTT 44.0 H (22.0-30.0) sec Chloride (98-107) mmol/L BUN (9-20) mg/dL Creatinine (0.66-1.25) mg/dL POC Glucose (mg/dL) (75-99) mg/dL Calcium (8.4-10.2) mg/dL Microbiology - Last 24 Hours (Table) 10/28/21 22:45 Urine Culture - Final Urine,Voided Assessment and Plan Plan: Comments: EKG image and report reviewed CT scan - abdomen: report reviewed CT scan - pelvis: report reviewed Assessment and Plan (1) Bladder mass Narrative/Plan: - the patient had extensive tumor mass involving the posterior and inferior portion of the bladder, causing probable bilateral ureteral obstruction. - Maximal possible resection was done during cystoscopy, but he returned (could not still be visualized. Patient is aware findings are highly suspicious for malignancy. - We will need to await pathology which is pending this am If the patient is found to have superficial cancer, then this would be further managed by urology with additional resection, and possible intra vesical therapy. if there is evidence of muscle invasion, then patient will need additional staging for distant disease. If no distant disease is present, then the standard of care is typically a cystectomy with chemotherapy. chemotherapy and radiation also options. If patient is not a candidate for cystectomy that case. Additional recommendations will be made once pathology is available. Current Visit: Yes Status: Acute Code(s): N32.89 - OTHER SPECIFIED DISORDERS OF BLADDER SNOMED Code(s): 519810002 (2) Pancreatic ductal abnormality Narrative/Plan: - [place]ridge ot be incidental finding the pancreatic ductal abnormality and possibility of a mass in the pancreatic head was discussed in detail. They were advised that the findings, no need for that workup, but at this time both benign as well as malignant etiologies are possible. The patient has no symptoms related to this. This was an incidental finding. I recommended that the most definitive way of further workup would be an endoscopic ultrasound which was unable accurate assessment of the nature of the mass, as well as biopsy after discharge. If this was found to be suspicious. The patient will be referred for the same as an outpatient, as his other issues, specifically severe kidney injury, are greater priorities. Current Visit: Yes Status: Acute Code(s): Q45.3 - OTH CONGENITAL MALFORMATIONS OF PANCREAS AND PANCREATIC DUCT SNOMED Code(s): 546666408
[2021-10-31] MEDS: HEPARIN SODIUM,PORCINE/PF 5,000 UNIT/0.5 ML SYRINGE SQ SCH ×2 (16:51→23:18)
[2021-11-01] MEDS: SODIUM CHLORIDE 0.9% 1,000 ML IV SCH ×2 (06:31→16:50)
--- NOTE | 2021-11-01 07:12 | P.PN ---
Subjective Progress Note Date: 10/30/21 Principal diagnosis: Urinary tract infection Patient is 81 year old male presented to hospital with hematuria and some urinary frequency patient did have a CT abdominal pannus with heart rate right-sided hydronephrosis patient is status post cystoscopy and did have evid ence of invasive bladder cancer status post resection and biopsy. On today's evaluation and is 10/30/2021, the patient denies having any fever or any chills, patient is breathing comfortably, patient denies having any chest pain no shortness of breath or cough, abdominal pain no nausea no vomiting and no diarrhea Objective - Vital Signs Vital signs: Vital Signs Temp 98.7 F 10/30/21 15:58 Pulse 75 10/30/21 15:58 Resp 14 10/30/21 11:42 BP 163/73 10/30/21 15:58 Pulse Ox 98 10/30/21 15:58 FiO2 Intake & Output 10/29/21 10/30/21 10/30/21 18:59 06:59 18:59 Intake Total 127 552.196 386.659 Output Total 3150 2800 2675 Balance -3023 -2247.804 -2288.341 Weight 76.8 kg Intake: Intake, IV Titration 9 52.196 146.659 Amount Diltiazem 125 mg In 9 Sodium Chloride 0.9% 100 ml @ 5 MG/HR 5 mls/hr IV .Q24H [facility] Rx#:[id number] Heparin Sod,Pork in 0.45% 52.196 146.659 NaCl 25,000 unit In 0.45 % NaCl 1 250ml.bag @ 12 UNITS/KG/HR 10.07 mls/hr IV .Q24H [facility] Rx#: [id number] Oral 118 240 Hemodialysis 500 Output: Urine 3150 2300 2675 Uretheral (Huggins) 700 Hemodialysis 500 Other: Voiding Method Indwelling Catheter Indwelling Catheter Indwelling Catheter - Exam GENERAL DESCRIPTION: An elderly male lying in bed in no distress RESPIRATORY SYSTEM: Unlabored breathing , decreased breath sounds at bases HEART: S1 S2 regular rate and rhythm , ABDOMEN: Soft , no tenderness EXTREMITIES: No edema feet - Labs CBC & Chem 7: 10/31/21 07:14 10/31/21 07:14 Labs: Abnormal Lab Results - Last 24 Hours (Table) 10/29/21 10/29/21 10/30/21 Range/Units 19:55 20:05 05:49 WBC (3.8-10.6) k/uL RBC (4.30-5.90) m/uL Hgb (13.0-17.5) gm/dL Hct (39.0-53.0) % Neutrophils # (1.3-7.7) k/uL APTT 50.6 H (22.0-30.0) sec Chloride (98-107) mmol/L BUN (9-20) mg/dL Creatinine (0.66-1.25) mg/dL POC Glucose (mg/dL) 121 H 101 H (75-99) mg/dL Calcium (8.4-10.2) mg/dL 10/30/21 10/30/21 10/30/21 Range/Units 08:29 08:29 08:29 WBC 12.2 H (3.8-10.6) k/uL RBC 3.85 L (4.30-5.90) m/uL Hgb 11.6 L (13.0-17.5) gm/dL Hct 37.4 L (39.0-53.0) % Neutrophils # 9.2 H (1.3-7.7) k/uL APTT 39.6 H (22.0-30.0) sec Chloride 108 H (98-107) mmol/L BUN 53 H (9-20) mg/dL Creatinine 6.74 H (0.66-1.25) mg/dL POC Glucose (mg/dL) (75-99) mg/dL Calcium 8.3 L (8.4-10.2) mg/dL 10/30/21 10/30/21 Range/Units 10:28 16:20 WBC (3.8-10.6) k/uL RBC (4.30-5.90) m/uL Hgb (13.0-17.5) gm/dL Hct (39.0-53.0) % Neutrophils # (1.3-7.7) k/uL APTT (22.0-30.0) sec Chloride (98-107) mmol/L BUN 54 H (9-20) mg/dL Creatinine 6.36 H (0.66-1.25) mg/dL POC Glucose (mg/dL) 121 H (75-99) mg/dL Calcium 8.1 L (8.4-10.2) mg/dL Microbiology - Last 24 Hours (Table) 10/28/21 22:45 Urine Culture - Final Urine,Voided Assessment and Plan (1) UTI (urinary tract infection) Current Visit: Yes Status: Acute Code(s): N39.0 - URINARY TRACT INFECTION, SITE NOT SPECIFIED SNOMED Code(s): 85425734 Plan: 1patient presented to hospital with hematuria and frequency of urine which is multifactorial and more likely secondary to his underlying invasive bladder cancer with evidence of hydronephrosis in the distal ureteral calculus status post cystoscopy, possible component of underlying UTI not entirely excluded likely from enteric gram-negative pathogen. 2patient continue with Rocephin 1 g daily while waiting for the culture to finalize. Time with Patient: Less than 30
--- NOTE | 2021-11-01 07:13 | P.PN ---
Subjective Progress Note Date: 10/31/21 Principal diagnosis: Urinary tract infection Patient is 81 year old male presented to hospital with hematuria and some urinary frequency patient did have a CT abdominal pannus with heart rate right-sided hydronephrosis patient is status post cystoscopy and did have evid ence of invasive bladder cancer status post resection and biopsy. On today's evaluation and is 10/31/2021, the patient remains to be afebrile, patient is breathing comfortably on room air, patient denies having any chest pain no shortness of breath or cough, abdominal pain no nausea no vomiting and no diarrhea, the patient still have a Huggins catheter with a blood stained urine Objective - Vital Signs Vital signs: Vital Signs Temp 98.0 F 10/31/21 12:16 Pulse 70 10/31/21 12:16 Resp 18 10/31/21 12:16 BP 167/80 10/31/21 12:16 Pulse Ox 94 L 10/31/21 12:16 FiO2 Intake & Output 10/30/21 10/31/21 10/31/21 18:59 06:59 18:59 Intake Total 386.659 207.072 41.173 Output Total 2675 1200 550 Balance -2288.341 -992.928 -508.827 Intake: Intake, IV Titration 146.659 207.072 41.173 Amount Heparin Sod,Pork in 0.45% 146.659 207.072 41.173 NaCl 25,000 unit In 0.45 % NaCl 1 250ml.bag @ 12 UNITS/KG/HR 10.07 mls/hr IV .Q24H [facility] Rx#: [id number] Oral 240 Output: Urine 2675 1200 550 Uretheral (Huggins) 700 Other: Voiding Method Indwelling Catheter Indwelling Catheter Indwelling Catheter - Exam GENERAL DESCRIPTION: An elderly male lying in bed in no distress RESPIRATORY SYSTEM: Unlabored breathing , decreased breath sounds at bases HEART: S1 S2 regular rate and rhythm , ABDOMEN: Soft , no tenderness EXTREMITIES: No edema feet - Labs CBC & Chem 7: 10/31/21 07:14 10/31/21 07:14 Labs: Abnormal Lab Results - Last 24 Hours (Table) 10/30/21 10/30/21 10/30/21 Range/Units 16:20 19:51 21:02 WBC (3.8-10.6) k/uL RBC (4.30-5.90) m/uL Hgb (13.0-17.5) gm/dL Hct (39.0-53.0) % Neutrophils # (1.3-7.7) k/uL APTT 46.7 H (22.0-30.0) sec Chloride (98-107) mmol/L Carbon Dioxide (22-30) mmol/L BUN (9-20) mg/dL Creatinine (0.66-1.25) mg/dL POC Glucose (mg/dL) 121 H 127 H (75-99) mg/dL 10/31/21 10/31/21 10/31/21 Range/Units 01:24 06:02 07:14 WBC 12.6 H (3.8-10.6) k/uL RBC 3.44 L (4.30-5.90) m/uL Hgb 10.8 L (13.0-17.5) gm/dL Hct 33.9 L (39.0-53.0) % Neutrophils # 9.1 H (1.3-7.7) k/uL APTT 40.3 H (22.0-30.0) sec Chloride (98-107) mmol/L Carbon Dioxide (22-30) mmol/L BUN (9-20) mg/dL Creatinine (0.66-1.25) mg/dL POC Glucose (mg/dL) 110 H (75-99) mg/dL 10/31/21 10/31/21 10/31/21 Range/Units 07:14 07:14 11:52 WBC (3.8-10.6) k/uL RBC (4.30-5.90) m/uL Hgb (13.0-17.5) gm/dL Hct (39.0-53.0) % Neutrophils # (1.3-7.7) k/uL APTT 44.0 H (22.0-30.0) sec Chloride 108 H (98-107) mmol/L Carbon Dioxide 21 L (22-30) mmol/L BUN 39 H (9-20) mg/dL Creatinine 4.77 H (0.66-1.25) mg/dL POC Glucose (mg/dL) 144 H (75-99) mg/dL Microbiology - Last 24 Hours (Table) 10/28/21 22:45 Urine Culture - Final Urine,Voided Assessment and Plan (1) UTI (urinary tract infection) Current Visit: Yes Status: Acute Code(s): N39.0 - URINARY TRACT INFECTION, SITE NOT SPECIFIED SNOMED Code(s): 81168742 Plan: 1patient presented to hospital with hematuria and frequency of urine which is multifactorial and more likely secondary to his underlying invasive bladder cancer with evidence of hydronephrosis in the distal ureteral calculus status post cystoscopy, possible component of underlying UTI not entirely excluded likely from enteric gram-negative pathogen. 2patient urine culture so far negative white count is mildly elevated to continue with empiric Rocephin 1 g daily and monitor clinical course closely. Time with Patient: Less than 30
[2021-11-01] MEDS: METOPROLOL TARTRATE 25 MG TAB PO SCH ×2 (08:20→21:04)
[2021-11-01] MEDS: HEPARIN SODIUM,PORCINE/PF 5,000 UNIT/0.5 ML SYRINGE SQ SCH ×2 (08:22→16:50)
--- NOTE | 2021-11-01 08:55 | P.PN ---
Subjective Progress Note Date: 11/01/21 Pt doing well today, no new complaints. Urine is clearing up, but still pink tinged. Kidney function improved yesterday without dialysis. Plan to remove catheter today if kidney function improving. Continue to hold heparin gtt. Pt may be d/c'd with f/u in the next 24-48 hours. Gen: awake, alert HEENT: normocephalic, atraumatic, good hearing acuity, moist mucous membranes Resp: good air exchange, breathing comfortably with no accessory muscle use CVS: good distal perfusion x 4, GI: soft, NTTP, ND : no SPT, no CVAT, maria catheter is present, hemorrhagic urine MSK: no pitting edema, no clubbing Neuro: non-focal, moving all extremities Psych: cooperative, euthymic mood Assessment/plan: Acute kidney injury secondary to obstructive uropathy Bilateral hydronephrosis, right-sided nephrolithiasis Invasive Bladder Carcinoma Hyperkalemia High anion gap metabolic acidosis Hematuria - nephrology and urology recs appreciated - s/p acute hyperkalemia treatment - avoid nephrotoxic agents - Status post ureteral stent placement - Status post dialysis catheter placement - strict I and O - follow renal labs - maria - f/u pathology of bladder mass Paroxysmal Atrial Fibrillation with RVR - was on heparin gtt, now on hold due to passing blood clots - metoprolol 25mg BID Pancreatic duct dilatation - oncology eval - likely MRCP early next week ETOH abuse - CIWA - Thiamine - folic acid Tobacco abuse - nicotine replacement Surrogate decision-maker: CODE STATUS:full, no prolonged vent/trach/PEG DVT prophylaxis: Heparin Anticipated discharge date: in 4-[address]: home Objective - Vital Signs Vital signs: Vital Signs Temp 97.7 F 10/31/21 20:00 Pulse 67 11/01/21 04:00 Resp 16 11/01/21 04:00 BP 176/84 11/01/21 04:00 Pulse Ox 96 11/01/21 08:24 FiO2 Intake & Output 10/31/21 11/01/21 11/01/21 18:59 06:59 18:59 Intake Total 41.173 Output Total 1650 1700 Balance -1608.827 -1700 Intake: Intake, IV Titration 41.173 Amount Heparin Sod,Pork in 0.45% 41.173 NaCl 25,000 unit In 0.45 % NaCl 1 250ml.bag @ 12 UNITS/KG/HR 10.07 mls/hr IV .Q24H [facility] Rx#: [id number] Output: Urine 1650 1700 Other: Voiding Method Indwelling Catheter Indwelling Catheter # Voids 3 - Labs CBC & Chem 7: 10/31/21 07:14 10/31/21 07:14 Labs: Abnormal Lab Results - Last 24 Hours (Table) 10/31/21 10/31/21 Range/Units 07:14 11:52 Chloride 108 H (98-107) mmol/L Carbon Dioxide 21 L (22-30) mmol/L BUN 39 H (9-20) mg/dL Creatinine 4.77 H (0.66-1.25) mg/dL POC Glucose (mg/dL) 144 H (75-99) mg/dL
[2021-11-01] MEDS ORDERED: bisacodyL 10 MG SUPP RECTAL STA (09:26)
[2021-11-01 10:07] LABS: Basophils % (A) 0 %; Eosinophils # (A) 0.6 k/uL (0-0.7); Eosinophils % (A) 6 %; HCT 35.5 % (39.0-53.0); HGB 11.2 gm/dL (13.0-17.5); Lymphocytes # (A) 1.6 k/uL (1.0-4.8); Lymphocytes % (A) 15 %; MCH 31.1 pg (25.0-35.0); MCHC 31.5 g/dL (31.0-37.0); MCV 98.5 fL (80.0-100.0); Mean Platelet Volume 8.6; Monocytes # (A) 0.6 k/uL (0-1.0); Monocytes % (A) 6 %; Neutrophils # (A) 7.7 k/uL (1.3-7.7); Neutrophils % (A) 72 %; Platelet Count 243 k/uL (150-450); RDW 12.5 % (11.5-15.5); WBC 10.7 k/uL (3.8-10.6)
--- NOTE | 2021-11-01 10:26 | P.PN ---
Subjective Gross hematuria clearing up this am his anticogulation is on hold. Denies any abdominal pain, creatinine was 4.77 yesterday, pathology is pending Objective - Vital Signs Vital signs: Vital Signs Temp 97.7 F 10/31/21 20:00 Pulse 67 11/01/21 04:00 Resp 16 11/01/21 04:00 BP 176/84 11/01/21 04:00 Pulse Ox 96 11/01/21 08:24 FiO2 Intake & Output 10/31/21 11/01/21 11/01/21 18:59 06:59 18:59 Intake Total 41.173 540 Output Total 1650 1700 475 Balance -1608.827 -1700 65 Intake: Intake, IV Titration 41.173 Amount Heparin Sod,Pork in 0.45% 41.173 NaCl 25,000 unit In 0.45 % NaCl 1 250ml.bag @ 12 UNITS/KG/HR 10.07 mls/hr IV .Q24H [facility] Rx#: [id number] Oral 540 Output: Urine 1650 1700 475 Other: Voiding Method Indwelling Catheter Indwelling Catheter # Voids 3 - Constitutional General appearance: Present: no acute distress - Labs CBC & Chem 7: 11/01/21 09:36 10/31/21 07:14 Labs: Abnormal Lab Results - Last 24 Hours (Table) 10/31/21 10/31/21 11/01/21 Range/Units 07:14 11:52 09:36 WBC 10.7 H (3.8-10.6) k/uL RBC 3.60 L (4.30-5.90) m/uL Hgb 11.2 L (13.0-17.5) gm/dL Hct 35.5 L (39.0-53.0) % Chloride 108 H (98-107) mmol/L Carbon Dioxide 21 L (22-30) mmol/L BUN 39 H (9-20) mg/dL Creatinine 4.77 H (0.66-1.25) mg/dL POC Glucose (mg/dL) 144 H (75-99) mg/dL Assessment and Plan Assessment: 81 yo make admitted [facility] with invasive bladder mass obstructing both ureters leading to renal failure and bilateral hydronephrosis. Underwent TURBT by Dr. Johansen on October 28, pathology is pending. Creatinine this morning is 4.77. Urine is clearing up this morning -Continue holding his heparin drip, given gross hematuria -We will keep Huggins in place for now. -Continue to trend creatinine -Follow up on pathology
[2021-11-01 10:32] LABS: Calcium 8.5 mg/dL (8.4-10.2); Magnesium 1.4 mg/dL (1.6-2.3); Potassium 3.8 mmol/L (3.5-5.1)
--- NOTE | 2021-11-01 10:59 | P.PN ---
Subjective Patient is seen for follow-up for acute kidney injury. He had bilateral hydronephrosis and underwent cystoscopy with transurethral resection of bladder tumor on 10/28/2021. Patient currently has an indwelling Huggins catheter. He has had good urine output. Renal function has been improving. He did have one treatment of hemodialysis and currently dialysis has been on hold. Last dialysis was on 10/29/2021 Serum creatinine down to 4.7 mg/dL yesterday Urine output 3.3 L for 24 hours Objective - Vital Signs Vital signs: Vital Signs Temp 97.7 F 10/31/21 20:00 Pulse 67 11/01/21 04:00 Resp 16 11/01/21 08:00 BP 176/84 11/01/21 04:00 Pulse Ox 96 11/01/21 08:24 FiO2 Intake & Output 10/31/21 11/01/21 11/01/21 18:59 06:59 18:59 Intake Total 41.173 540 Output Total 1650 1700 475 Balance -1608.827 -1700 65 Intake: Intake, IV Titration 41.173 Amount Heparin Sod,Pork in 0.45% 41.173 NaCl 25,000 unit In 0.45 % NaCl 1 250ml.bag @ 12 UNITS/KG/HR 10.07 mls/hr IV .Q24H [facility] Rx#: [id number] Oral 540 Output: Urine 1650 1700 475 Other: Voiding Method Indwelling Catheter Indwelling Catheter Indwelling Catheter # Voids 3 - Exam Awake, comfortable, not in any acute distress Examination of the heart S1 and S2 Examination lungs bilateral breath sounds are heard Abdomen is soft nontender Exertion lower extremity shows no evidence of edema DRAWSTRING KNOTTER exam grossly intact - Labs CBC & Chem 7: 11/01/21 09:36 11/01/21 09:36 Labs: Abnormal Lab Results - Last 24 Hours (Table) 10/31/21 10/31/21 11/01/21 Range/Units 07:14 11:52 09:36 WBC 10.7 H (3.8-10.6) k/uL RBC 3.60 L (4.30-5.90) m/uL Hgb 11.2 L (13.0-17.5) gm/dL Hct 35.5 L (39.0-53.0) % Chloride 108 H (98-107) mmol/L Carbon Dioxide 21 L (22-30) mmol/L BUN 39 H (9-20) mg/dL Creatinine 4.77 H (0.66-1.25) mg/dL POC Glucose (mg/dL) 144 H (75-99) mg/dL Magnesium (1.6-2.3) mg/dL 11/01/21 Range/Units 09:36 WBC (3.8-10.6) k/uL RBC (4.30-5.90) m/uL Hgb (13.0-17.5) gm/dL Hct (39.0-53.0) % Chloride (98-107) mmol/L Carbon Dioxide (22-30) mmol/L BUN 28 H (9-20) mg/dL Creatinine 3.31 H (0.66-1.25) mg/dL POC Glucose (mg/dL) (75-99) mg/dL Magnesium 1.4 L (1.6-2.3) mg/dL Assessment and Plan Assessment: 1. Acute kidney injury secondary to obstructive uropathy. Creatinine 13.6 on initial admission. Down to 4.7 today. Status post one treatment of hemodialysis on 10/29/2021. Currently with indwelling Huggins catheter he adrenal function continues to improve. We will DC femoral catheter in the next 24-48 hours 2. Bilateral nephrolithiasis and hydronephrosis status post cystoscopy with transurethral resection of bladder tumor on 10/28/2021. Currently with indwelling Huggins catheter 3. Hyperkalemia associated with acute kidney injury metabolic acidosis currently improved 4. Metabolic acidosis secondary to acute kidney injury currently improved 5. 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 Follow-up as outpatient in about 1 week Patient could be discharged from nephrology standpoint.
[2021-11-01] MEDS: polyethylene glycoL 3350 17 GM POWD.PACK PO SCH (12:14)
[2021-11-01] MEDS: DOCUSATE 100 MG CAP PO SCH ×2 (12:14→21:04)
[2021-11-02] MEDS: SODIUM CHLORIDE 0.9% 1,000 ML IV SCH ×2 (06:09→23:28)
[2021-11-02] MEDS: METOPROLOL TARTRATE 25 MG TAB PO SCH ×2 (08:15→21:00)
[2021-11-02] MEDS: DOCUSATE 100 MG CAP PO SCH ×2 (08:15→21:01)
[2021-11-02] MEDS: polyethylene glycoL 3350 17 GM POWD.PACK PO SCH (08:15)
[2021-11-02] MEDS: HEPARIN SODIUM,PORCINE/PF 5,000 UNIT/0.5 ML SYRINGE SQ SCH ×4 (08:15→23:28)
[2021-11-02 09:27] LABS: Basophils % (A) 0 %; Eosinophils # (A) 0.7 k/uL (0-0.7); Eosinophils % (A) 7 %; HCT 36.8 % (39.0-53.0); HGB 11.3 gm/dL (13.0-17.5); Lymphocytes % (A) 19 %; MCH 30.4 pg (25.0-35.0); MCHC 30.8 g/dL (31.0-37.0); MCV 98.7 fL (80.0-100.0); Mean Platelet Volume 8.8; Monocytes # (A) 0.6 k/uL (0-1.0); Monocytes % (A) 5 %; Neutrophils # (A) 7.1 k/uL (1.3-7.7); Neutrophils % (A) 67 %; Platelet Count 255 k/uL (150-450); RBC 3.73 m/uL (4.30-5.90); RDW 12.6 % (11.5-15.5); WBC 10.5 k/uL (3.8-10.6)
--- NOTE | 2021-11-02 09:48 | P.PN ---
Subjective Patient is seen for follow-up for acute kidney injury. He had bilateral hydronephrosis and underwent cystoscopy with transurethral resection of bladder tumor on 10/28/2021. Patient currently has an indwelling Huggins catheter. He has had good urine output. Renal function has been improving. He did have one treatment of hemodialysis and currently dialysis has been on hold. Last dialysis was on 10/29/2021 Serum creatinine down to 3.3 mg/dL yesterday Urine output 2.6 L for 24 hours Objective - Vital Signs Vital signs: Vital Signs Temp 98.1 F 11/01/21 20:00 Pulse 60 11/02/21 04:00 Resp 16 11/02/21 04:00 BP 138/79 11/02/21 04:00 Pulse Ox 94 L 11/02/21 04:00 FiO2 Intake & Output 11/01/21 11/02/21 11/02/21 18:59 06:59 18:59 Intake Total 540 240 Output Total 475 2125 Balance 65 -2125 240 Intake: Oral 540 240 Output: Urine 475 2125 Other: Voiding Method Indwelling Catheter Indwelling Catheter - Exam Awake, comfortable, not in any acute distress Examination of the heart S1 and S2 Examination lungs bilateral breath sounds are heard Abdomen is soft nontender Exertion lower extremity shows no evidence of edema BANKING ATTORNEY exam grossly intact - Labs CBC & Chem 7: 11/02/21 08:55 11/01/21 09:36 Labs: Abnormal Lab Results - Last 24 Hours (Table) 11/01/21 11/01/21 11/02/21 Range/Units 09:36 09:36 08:55 WBC 10.7 H (3.8-10.6) k/uL RBC 3.60 L 3.73 L (4.30-5.90) m/uL Hgb 11.2 L 11.3 L (13.0-17.5) gm/dL Hct 35.5 L 36.8 L (39.0-53.0) % MCHC 30.8 L (31.0-37.0) g/dL BUN 28 H (9-20) mg/dL Creatinine 3.31 H (0.66-1.25) mg/dL Magnesium 1.4 L (1.6-2.3) mg/dL Assessment and Plan Assessment: 1. Acute kidney injury secondary to obstructive uropathy. Creatinine 13.6 on initial admission. Down to 4.7 today. Status post one treatment of hemodialysis on 10/29/2021. Currently with indwelling Huggins catheter he adrenal function continues to improve. We will DC femoral catheter in the next 24-48 hours 2. Bilateral nephrolithiasis and hydronephrosis status post cystoscopy with transurethral resection of bladder tumor on 10/28/2021. Currently with indwelling Huggins catheter 3. Hyperkalemia associated with acute kidney injury metabolic acidosis currently improved 4. Metabolic acidosis secondary to acute kidney injury currently improved 5. Pancreatic duct dilatation, questionable malignancy being followed by oncology Plan: DC femoral dialysis catheter Follow-up as outpatient in about 1 week Patient could be discharged from nephrology standpoint.
[2021-11-02 09:49] LABS: Calcium 8.5 mg/dL (8.4-10.2); Magnesium 1.4 mg/dL (1.6-2.3)
[2021-11-02 10:53] VITALS: BMI 25.0
[2021-11-02] MEDS: MAGNESIUM SULFATE-D5W PMX 1 GM in DEXTROSE/WATER 1 100ML.BAG IVPB SCH ×3 (11:03→16:04)
--- NOTE | 2021-11-02 11:35 | P.PN ---
Subjective Progress Note Date: 11/02/21 Principal diagnosis: New Bladder Mass Appears bladder mass does extend invading muscle, therefore full staging as outpatient with PET scan (unable to stage with contrasted CTs due to renal function) will be ordered as outpatient, this was discussed with patient and family. Objective - Vital Signs Vital signs: Vital Signs Temp 98.0 F 11/02/21 08:00 Pulse 78 11/02/21 08:00 Resp 16 11/02/21 08:00 BP 146/76 11/02/21 08:00 Pulse Ox 98 11/02/21 08:00 FiO2 Intake & Output 11/01/21 11/02/21 11/02/21 18:59 06:59 18:59 Intake Total 540 240 Output Total 475 2125 Balance 65 -2125 240 Weight 76.8 kg Intake: Oral 540 240 Output: Urine 475 2125 Other: Voiding Method Indwelling Catheter Indwelling Catheter Indwelling Catheter - Exam - Constitutional General appearance: no acute distress - EENT Eyes: EOMI, PERRLA ENT: hearing grossly normal, normal oropharynx - Neck Neck: no lymphadenopathy Thyroid: bilateral: normal size - Respiratory Respiratory: bilateral: diminished (s/o COPD) - Cardiovascular Rhythm: regular Heart sounds: normal: S1, S2 - Gastrointestinal General gastrointestinal: normal bowel sounds, soft - Integumentary Integumentary: normal - Neurologic Neurologic: CNII-XII intact - Musculoskeletal Musculoskeletal: generalized weakness, strength equal bilaterally - Psychiatric Psychiatric: A&O x's 3, appropriate affect - Labs CBC & Chem 7: 11/02/21 08:55 11/02/21 08:55 Labs: Abnormal Lab Results - Last 24 Hours (Table) 11/02/21 11/02/21 Range/Units 08:55 08:55 RBC 3.73 L (4.30-5.90) m/uL Hgb 11.3 L (13.0-17.5) gm/dL Hct 36.8 L (39.0-53.0) % MCHC 30.8 L (31.0-37.0) g/dL BUN 25 H (9-20) mg/dL Creatinine 2.72 H (0.66-1.25) mg/dL Glucose 142 H (74-99) mg/dL Magnesium 1.4 L (1.6-2.3) mg/dL Assessment and Plan Plan: Comments: EKG image and report reviewed CT scan - abdomen: report reviewed CT scan - pelvis: report reviewed Assessment and Plan (1) Bladder mass Narrative/Plan: - the patient had extensive tumor mass involving the posterior and inferior portion of the bladder, causing probable bilateral ureteral obstruction. - Maximal possible resection was done during cystoscopy, but he returned (could not still be visualized. Patient is aware findings are highly suspicious for malignancy. -Appears bladder mass does extend invading muscle, therefore full staging as outpatient with PET scan (unable to stage with contrasted CTs due to renal function) will be ordered as outpatient, this was discussed with patient and family, pathology definitive diagnosis of cancer of bladder. - Plan PET as outpatient Current Visit: Yes Status: Acute Code(s): N32.89 - OTHER SPECIFIED DISORDERS OF BLADDER SNOMED Code(s): 389518384 (2) Pancreatic ductal abnormality Narrative/Plan: - [place] ot be incidental finding the pancreatic ductal abnormality and possibility of a mass in the pancreatic head was discussed in detail. They were advised that the findings, no need for that workup, but at this time both benign as well as malignant etiologies are possible. The patient has no symptoms related to this. This was an incidental finding. I recommended that the most definitive way of further workup would be an endoscopic ultrasound which was unable accurate assessment of the nature of the mass, as well as biopsy after discharge. If this was found to be suspicious. The patient will be referred for the same as an outpatient, as his other issues, specifically severe kidney injury, are greater priorities. 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
--- NOTE | 2021-11-02 11:36 | P.PN ---
Subjective Progress Note Date: 11/02/21 The patient is in the hospital with renal failure due to bilateral ureteral obstruction due to what appears to be invasive cancer the bladder. The resection has unroofed some of the obstruction and he is making better urine in the renal failure is slowly resolving. His creatinine today was 2.7. The pat hology did show muscle invasive cancer which would require cystectomy if there is no evidence of metastases. I reviewed the computed tomography scan again with radiology and there does not appear to be any obvious metastases however the abnormal pancreatic duct is of concern. He is getting an MRCP today to clarify the status of the pancreatic duct dilation those determined where we are going with regards to the invasive bladder cancer. This has been discussed at length with the patient. If there is no evidence of metastases and the pancreatic duct dilation is benign then he will need referral to a major [facility] for consideration for cystectomy and loop. Objective - Vital Signs Vital signs: Vital Signs Temp 98.0 F 11/02/21 08:00 Pulse 78 11/02/21 08:00 Resp 16 11/02/21 08:00 BP 146/76 11/02/21 08:00 Pulse Ox 98 11/02/21 08:00 FiO2 Intake & Output 11/01/21 11/02/21 11/02/21 18:59 06:59 18:59 Intake Total 540 240 Output Total 475 2125 Balance 65 -2125 240 Weight 76.8 kg Intake: Oral 540 240 Output: Urine 475 2125 Other: Voiding Method Indwelling Catheter Indwelling Catheter Indwelling Catheter - Labs CBC & Chem 7: 11/02/21 08:55 11/02/21 08:55 Labs: Abnormal Lab Results - Last 24 Hours (Table) 11/02/21 11/02/21 Range/Units 08:55 08:55 RBC 3.73 L (4.30-5.90) m/uL Hgb 11.3 L (13.0-17.5) gm/dL Hct 36.8 L (39.0-53.0) % MCHC 30.8 L (31.0-37.0) g/dL BUN 25 H (9-20) mg/dL Creatinine 2.72 H (0.66-1.25) mg/dL Glucose 142 H (74-99) mg/dL Magnesium 1.4 L (1.6-2.3) mg/dL
--- NOTE | 2021-11-02 12:46 | P.PN ---
Subjective Progress Note Date: 11/02/21 Pt doing well today, no new complaints. Urine is clearing up, but still pink tinged. Kidney function improved yesterday without dialysis. Plan to remove catheter today if kidney function improving. Continue to hold heparin gtt. Pt may be d/c'd with f/u in the next 24-48 hours. Gen: awake, alert HEENT: normocephalic, atraumatic, good hearing acuity, moist mucous membranes Resp: good air exchange, breathing comfortably with no accessory muscle use CVS: good distal perfusion x 4, GI: soft, NTTP, ND : no SPT, no CVAT, maria catheter is present, hemorrhagic urine MSK: no pitting edema, no clubbing Neuro: non-focal, moving all extremities Psych: cooperative, euthymic mood Assessment/plan: Acute kidney injury secondary to obstructive uropathy Bilateral hydronephrosis, right-sided nephrolithiasis Invasive Bladder Carcinoma Hyperkalemia High anion gap metabolic acidosis Hematuria - nephrology and urology recs appreciated - s/p acute hyperkalemia treatment - avoid nephrotoxic agents - Status post ureteral stent placement - Status post dialysis catheter placement - strict I and O - follow renal labs - maria - f/u pathology of bladder mass Paroxysmal Atrial Fibrillation with RVR - was on heparin gtt, now on hold due to passing blood clots - metoprolol 25mg BID Pancreatic duct dilatation - oncology eval - likely MRCP early next week ETOH abuse - CIWA - Thiamine - folic acid Tobacco abuse - nicotine replacement Surrogate decision-maker: CODE STATUS:full, no prolonged vent/trach/PEG DVT prophylaxis: Heparin Anticipated discharge date: in 4-[address]: home Objective - Vital Signs Vital signs: Vital Signs Temp 97.8 F 11/02/21 11:37 Pulse 61 11/02/21 11:37 Resp 16 11/02/21 11:37 BP 155/74 11/02/21 11:37 Pulse Ox 97 11/02/21 11:37 FiO2 Intake & Output 11/01/21 11/02/21 11/02/21 18:59 06:59 18:59 Intake Total 540 240 Output Total 475 2125 Balance 65 -2125 240 Weight 76.8 kg Intake: Oral 540 240 Output: Urine 475 2125 Other: Voiding Method Indwelling Catheter Indwelling Catheter Indwelling Catheter - Labs CBC & Chem 7: 11/02/21 08:55 11/02/21 08:55 Labs: Abnormal Lab Results - Last 24 Hours (Table) 11/02/21 11/02/21 Range/Units 08:55 08:55 RBC 3.73 L (4.30-5.90) m/uL Hgb 11.3 L (13.0-17.5) gm/dL Hct 36.8 L (39.0-53.0) % MCHC 30.8 L (31.0-37.0) g/dL BUN 25 H (9-20) mg/dL Creatinine 2.72 H (0.66-1.25) mg/dL Glucose 142 H (74-99) mg/dL Magnesium 1.4 L (1.6-2.3) mg/dL
--- NOTE | 2021-11-02 14:43 | MR ---
EXAMINATION TYPE: MR MRCP DATE OF EXAM: 11/02/2021 COMPARISON: CT abdomen and pelvis 5 days ago HISTORY: Dilated biliary duct Standard multiplanar, multisequence MRI departmental protocol Multiplanar, multisequence images of the abdomen were acquired without contrast. Diffusion weighted i maging was performed. Thin and thick slice MRCP imaging performed on the MRI scanner. FINDINGS: Liver/gallbladder/pancreas/biliary system: Liver is redemonstrated normal in size with innumerable ti ny thin-walled cysts. There is a dominant 9 mm thin-walled cyst in the left hepatic lobe. Gallbladder has no intraluminal gallstones. No surrounding fluid or wall thickening. Pancreas shows granular atr ophy with marked ductal prominence particularly in the body. Pancreatic duct measures up to 5.0 cm in diameter with lobulated contour and more beaded appearance distally. Similar appearance but less pro minence noted in the uncinate process. No intrapancreatic or extrahepatic biliary dilatation. Contour appears within normal limits. Difficulty visualizing the distal CBD. Other: Persistent severe right-sided hydronephrosis. Obstructing bladder mass or neoplasm suspected a long with distal right ureter calculus. Scattered simple-appearing thin-walled cysts in both kidneys. There is mild left-sided hydronephrosis on current study. Lung bases are clear. Spleen and both adrenal glands appear within normal limits. No suspicious bowel dilatation. No intra-abdominal ascites. Multilevel spurring in the spine. IMPRESSION: 1. Marked dilated pancreatic duct without biliary dilatation, neoplasm such as main branch IPMN needs to be strongly considered. Advise specialist referral and appropriate lab work up. ERCP with endosco pic sampling should be considered. 2. Right greater than left hydronephrosis with suggestion of bladder mass or hematoma on CT. Further workup and follow-up advised.
[2021-11-03] MEDS ORDERED: hydrALAZINE HCL 25 MG TAB PO STA (00:15)
[2021-11-03] MEDS ORDERED: NIFEdipine XL 30 MG TAB.ER.24 PO SCH (05:30)
--- NOTE | 2021-11-03 08:43 | P.PN ---
Subjective Progress Note Date: 11/01/21 Principal diagnosis: Urinary tract infection Patient is 81 year old male presented to hospital with hematuria and some urinary frequency patient did have a CT abdominal pannus with heart rate right-sided hydronephrosis patient is status post cystoscopy and did have evid ence of invasive bladder cancer status post resection and biopsy. On today's evaluation and is 11/01/2021, the patient continues to be afebrile, patient is breathing comfortably on room air, patient denies having any chest pain , shortness of breath or cough, abdominal pain no nausea no vomiting and no diarrhea, Objective - Vital Signs Vital signs: Vital Signs Temp 97.7 F 10/31/21 20:00 Pulse 67 11/01/21 04:00 Resp 16 11/01/21 08:00 BP 176/84 11/01/21 04:00 Pulse Ox 96 11/01/21 08:24 FiO2 Intake & Output 10/31/21 11/01/21 11/01/21 18:59 06:59 18:59 Intake Total 41.173 540 Output Total 1650 1700 475 Balance -1608.827 -1700 65 Intake: Intake, IV Titration 41.173 Amount Heparin Sod,Pork in 0.45% 41.173 NaCl 25,000 unit In 0.45 % NaCl 1 250ml.bag @ 12 UNITS/KG/HR 10.07 mls/hr IV .Q24H [facility] Rx#: [id number] Oral 540 Output: Urine 1650 1700 475 Other: Voiding Method Indwelling Catheter Indwelling Catheter Indwelling Catheter # Voids 3 - Exam GENERAL DESCRIPTION: An elderly male lying in bed in no distress RESPIRATORY SYSTEM: Unlabored breathing , decreased breath sounds at bases HEART: S1 S2 regular rate and rhythm , ABDOMEN: Soft , no tenderness EXTREMITIES: No edema feet - Labs CBC & Chem 7: 11/02/21 08:55 11/02/21 08:55 Labs: Abnormal Lab Results - Last 24 Hours (Table) 11/01/21 11/01/21 Range/Units 09:36 09:36 WBC 10.7 H (3.8-10.6) k/uL RBC 3.60 L (4.30-5.90) m/uL Hgb 11.2 L (13.0-17.5) gm/dL Hct 35.5 L (39.0-53.0) % BUN 28 H (9-20) mg/dL Creatinine 3.31 H (0.66-1.25) mg/dL Magnesium 1.4 L (1.6-2.3) mg/dL Assessment and Plan (1) UTI (urinary tract infection) Current Visit: Yes Status: Acute Code(s): N39.0 - URINARY TRACT INFECTION, SITE NOT SPECIFIED SNOMED Code(s): 62991859 Plan: 1patient presented to hospital with hematuria and frequency of urine which is multifactorial and more likely secondary to his underlying invasive bladder canc er with evidence of hydronephrosis in the distal ureteral calculus status post cystoscopy, possible component of underlying UTI not entirely excluded likely from enteric gram-negative pathogen. 2patient urine culture so far negative and the patient white count is trending down, patient to continue with empiric Rocephin 1 g daily and monitor clinical course closely. Time with Patient: Less than 30
--- NOTE | 2021-11-03 08:44 | P.PN ---
Subjective Progress Note Date: 11/02/21 Principal diagnosis: Urinary tract infection Patient is 81 year old male presented to hospital with hematuria and some urinary frequency patient did have a CT abdominal pannus with heart rate right-sided hydronephrosis patient is status post cystoscopy and did have evid ence of invasive bladder cancer status post resection and biopsy. On today's evaluation and is 11/02/2021, the patient denies any fever or any chills, patient is breathing comfortably on room air, patient denies having any chest pain , shortness of breath or cough, the patient denies abdominal pain no nausea no vomiting and no diarrhea, Objective - Vital Signs Vital signs: Vital Signs Temp 97.8 F 11/02/21 11:37 Pulse 61 11/02/21 11:37 Resp 16 11/02/21 11:37 BP 155/74 11/02/21 11:37 Pulse Ox 97 11/02/21 11:37 FiO2 Intake & Output 11/01/21 11/02/21 11/02/21 18:59 06:59 18:59 Intake Total 540 240 Output Total 475 2125 Balance 65 -2125 240 Weight 76.8 kg Intake: Oral 540 240 Output: Urine 475 2125 Other: Voiding Method Indwelling Catheter Indwelling Catheter Indwelling Catheter - Exam GENERAL DESCRIPTION: An elderly male lying in bed in no distress RESPIRATORY SYSTEM: Unlabored breathing , decreased breath sounds at bases HEART: S1 S2 regular rate and rhythm , ABDOMEN: Soft , no tenderness EXTREMITIES: No edema feet - Labs CBC & Chem 7: 11/02/21 08:55 11/02/21 08:55 Labs: Abnormal Lab Results - Last 24 Hours (Table) 11/02/21 11/02/21 Range/Units 08:55 08:55 RBC 3.73 L (4.30-5.90) m/uL Hgb 11.3 L (13.0-17.5) gm/dL Hct 36.8 L (39.0-53.0) % MCHC 30.8 L (31.0-37.0) g/dL BUN 25 H (9-20) mg/dL Creatinine 2.72 H (0.66-1.25) mg/dL Glucose 142 H (74-99) mg/dL Magnesium 1.4 L (1.6-2.3) mg/dL Assessment and Plan (1) UTI (urinary tract infection) Current Visit: Yes Status: Acute Code(s): N39.0 - URINARY TRACT INFECTION, SITE NOT SPECIFIED SNOMED Code(s): 55220434 Plan: 1patient presented to hospital with hematuria and frequency of urine which is multifactorial and more likely secondary to his underlying invasive bladder cancer with evidence of hydronephrosis in the distal ureteral calculus status post cystoscopy, possible component of underlying UTI not entirely excluded likely from enteric gram-negative pathogen. 2patient urine culture negative and the patient white count has normalized, patient to continue with Rocephin 1 g daily to finish a seven-day course of therapy Time with Patient: Less than 30
[2021-11-03] MEDS: HEPARIN SODIUM,PORCINE/PF 5,000 UNIT/0.5 ML SYRINGE SQ SCH (10:23)
[2021-11-03] MEDS: METOPROLOL TARTRATE 25 MG TAB PO SCH (10:24)
[2021-11-03] MEDS: DOCUSATE 100 MG CAP PO SCH (10:24)
[2021-11-03] MEDS: polyethylene glycoL 3350 17 GM POWD.PACK PO SCH (10:29)
[2021-11-03 12:54] VITALS: BP 139/64; PULSE 69; RESP 18; TEMP 98
--- NOTE | 2021-11-03 12:57 | P.PN ---
Subjective Progress Note Date: 11/03/21 Principal diagnosis: New Bladder Mass Discussed need of outpatient EUS and PET with patient and RNs Objective - Vital Signs Vital signs: Vital Signs Temp 98.0 F 11/03/21 12:00 Pulse 69 11/03/21 12:00 Resp 18 11/03/21 12:00 BP 139/64 11/03/21 12:00 Pulse Ox 97 11/03/21 12:00 FiO2 Intake & Output 11/02/21 11/03/21 11/03/21 18:59 06:59 18:59 Intake Total 240 560 Output Total 1825 Balance 240 -1265 Weight 76.8 kg Intake: Intake, IV Titration 560 Amount Sodium Chloride 0.9% 1, 560 000 ml @ 70 mls/hr IV . [id number] [facility] Rx#:[id number] Oral 240 Output: Urine 1825 Other: Voiding Method Indwelling Catheter Indwelling Catheter - Exam - Constitutional General appearance: no acute distress - EENT Eyes: EOMI, PERRLA ENT: hearing grossly normal, normal oropharynx - Neck Neck: no lymphadenopathy Thyroid: bilateral: normal size - Respiratory Respiratory: bilateral: diminished (s/o COPD) - Cardiovascular Rhythm: regular Heart sounds: normal: S1, S2 - Gastrointestinal General gastrointestinal: normal bowel sounds, soft - Integumentary Integumentary: normal - Neurologic Neurologic: CNII-XII intact - Musculoskeletal Musculoskeletal: generalized weakness, strength equal bilaterally - Psychiatric Psychiatric: A&O x's 3, appropriate affect - Labs CBC & Chem 7: 11/02/21 08:55 11/02/21 08:55 Assessment and Plan Plan: Comments: EKG image and report reviewed CT scan - abdomen: report reviewed CT scan - pelvis: report reviewed Assessment and Plan (1) Bladder mass Narrative/Plan: - the patient had extensive tumor mass involving the posterior and inferior portion of the bladder, causing probable bilateral ureteral obstruction. - Maximal possible resection was done during cystoscopy, but he returned (could not still be visualized. Patient is aware findings are highly suspicious for malignancy. -Appears bladder mass does extend invading muscle, therefore full staging as outpatient with PET scan (unable to stage with contrasted CTs due to renal function) will be ordered as outpatient, this was discussed with patient and family, pathology definitive diagnosis of cancer of bladder. - Plan PET as outpatient Current Visit: Yes Status: Acute Code(s): N32.89 - OTHER SPECIFIED DISORDERS OF BLADDER SNOMED Code(s): 656532863 (2) Pancreatic ductal abnormality Narrative/Plan: - Soldier ot be incidental finding Addressing bladder mass as primary concern is needed, discussed with patient Current Visit: Yes Status: Acute Code(s): Q45.3 - OTH CONGENITAL MALFORMATIONS OF PANCREAS AND PANCREATIC DUCT SNOMED Code(s): 665735887 PLAN for EUS and PET as Outpatient Per RN plan for discharge today he
--- NOTE | 2021-11-03 13:50 | P.PN ---
Subjective Patient is seen for follow-up for acute kidney injury. He had bilateral hydronephrosis and underwent cystoscopy with transurethral resection of bladder tumor on 10/28/2021. Patient currently has an indwelling Huggins catheter. He has had good urine output. Renal function has been improving. He did have one treatment of hemodialysis and currently dialysis has been on hold. Last dialysis was on 10/29/2021 Serum creatinine down to 2.7 mg/dL yesterday Urine output 1.8 L for 24 hours Objective - Vital Signs Vital signs: Vital Signs Temp 98.0 F 11/03/21 12:00 Pulse 69 11/03/21 12:00 Resp 18 11/03/21 12:00 BP 139/64 11/03/21 12:00 Pulse Ox 97 11/03/21 12:00 FiO2 Intake & Output 11/02/21 11/03/21 11/03/21 18:59 06:59 18:59 Intake Total 240 560 Output Total 1825 Balance 240 -1265 Weight 76.8 kg Intake: Intake, IV Titration 560 Amount Sodium Chloride 0.9% 1, 560 000 ml @ 70 mls/hr IV . [id number] [facility] Rx#:[id number] Oral 240 Output: Urine 1825 Other: Voiding Method Indwelling Catheter Indwelling Catheter - Exam Awake, comfortable, not in any acute distress Examination of the heart S1 and S2 Examination lungs bilateral breath sounds are heard Abdomen is soft nontender Exertion lower extremity shows no evidence of edema TECHNICAL TRAINER exam grossly intact - Labs CBC & Chem 7: 11/02/21 08:55 11/02/21 08:55 Assessment and Plan Assessment: 1. Acute kidney injury secondary to obstructive uropathy. Creatinine 13.6 on initial admission. Down to 4.7 today. Status post one treatment of hemodialysis on 10/29/2021. Currently with indwelling Huggins catheter he adrenal function continues to improve. We will DC femoral catheter in the next 24-48 hours 2. Bilateral nephrolithiasis and hydronephrosis status post cystoscopy with transurethral resection of bladder tumor on 10/28/2021. Currently with indwelling Huggins catheter 3. Hyperkalemia associated with acute kidney injury metabolic acidosis currently improved 4. Metabolic acidosis secondary to acute kidney injury currently improved 5. Pancreatic duct dilatation, questionable malignancy being followed by oncology Plan: DC femoral dialysis catheter Patient is stable for discharge from nephrology standpoint Follow-up as outpatient with urology and nephrology.
--- NOTE | 2021-11-03 13:57 | P.DS ---
Providers Date of admission: 10/28/21 13:53 Expected date of discharge: 11/03/21 Attending physician: Derick Roberto MD Consults: 10/28/21 13:52 Consult Physician Routine Consulting Provider: Francisco Javier Johansen Consult Reason/Comments: right kidney stone with hydronephrosis Do you want consulting provider notified?: Already Contacted Consult Physician Routine Consulting Provider: Misbah Arita Consult Reason/Comments: MARIANELA Do you want consulting provider notified?: Already Contacted 10/28/21 13:57 Consult Physician Routine Consulting Provider: Samy Vivas Consult Reason/Comments: concern for pancreatic neoplasm Do you want consulting provider notified?: Yes 10/28/21 14:05 Consult Physician Routine Consulting Provider: Beatrice Gaona Consult Reason/Comments: per nephro recommendation Do you want consulting provider notified?: Yes 10/29/21 13:23 Consult Physician Stat Consulting Provider: Luis Judd Consult Reason/Comments: Needs temp dialysis catheter. Do you want consulting provider notified?: Yes Primary care physician: Stated None Hospital Course: Acute kidney injury secondary to obstructive uropathy Bilateral hydronephrosis, right-sided nephrolithiasis Invasive Bladder Carcinoma Hyperkalemia High anion gap metabolic acidosis Hematuria Paroxysmal Atrial Fibrillation with RVR Pancreatic duct dilatation ETOH abuse Tobacco abuse Patient is an 81-year-old male with chronic tobacco dependency, daily alcohol use who has not seen a physician in many years who presented to the ER with complaints of difficulty with urination. On arrival to the ER his vital signs were within normal limits. Laboratory analysis showed a white blood cell count of 14.1, sodium 134, potassium 6, carbon dioxide 13, anion gap 17, BUN 104, creatinine 13.6. CT abdomen and pelvis was completed which demonstrated mild to moderate right hydronephrosis with a 5 mm stone in the right distal ureter, mild. The left renal collecting system without any obstruction, numerous bilateral hepatic and renal cysts on both sides, marked enlargement of the pancreatic duct up to 3.8 m with cystic pancreatic neoplasm including malignant IPM and not excluded, possible mild acute interstitial pancreatitis centered in the tail, 5 mm basilar pulmonary nodule, moderate to large inguinal hernia, and coronary artery calcifications. In the ER he was started on IV fluids. He is given a dose of Lokalema, sodium bicarb, insulin, dextrose, and calcium. Nephrology was consulted. Arrangements are made for admission for acute renal f ailure. Maria catheter was inserted. He was seen by urology who took the patient for planned stent placement, however, due to intraoperatively found bladder mass, the ureters could not be found or stented. The mass was removed intraoperatively, and patient was subsequently able to make some urine output. He did require one dialysis session, but following this, patient was able to make adequate urine and did not require further dialysis sessions. Pathology returned + for invasive bladder carcinoma. MRCP demonstrated concern for possible metastasis to pancreas and recommendations by urology were for tertiary care outpatient referral for ERCP. Hospital course was complicated by A Fib with RVR, and patient was placed on heparin gtt, which was d/c'd when patient developed clots in the bladder. He was started on metoprolol and nifedipine. Pt was discharged home with Urology, cardiology, nephrology, and PCP f/u. A referral was also sent to [facility] for ER[facility] - they will be in touch with the patient after receiving medical records which were sent by our community midwife on day of discharge. I spent 45 minutes coordinating this complex discharge, discharge date 11/03 Gen: awake, alert HEENT: normocephalic, atraumatic, good hearing acuity, moist mucous membranes Resp: good air exchange, breathing comfortably with no accessory muscle use CVS: good distal perfusion x 4, GI: soft, NTTP, ND : no SPT, no CVAT, maria catheter is present, hemorrhagic urine MSK: no pitting edema, no clubbing Neuro: non-focal, moving all extremities Psych: cooperative, euthymic mood Patient Condition at Discharge: Good Plan - Discharge Summary Discharge Rx Participant: No New Discharge Prescriptions: New Metoprolol Tartrate [Lopressor] 25 mg PO BID #60 tab NIFEdipine XL [Procardia XL] 60 mg PO Q24H #30 tab Acetaminophen Tab [Tylenol] 650 mg PO Q6HR PRN tab PRN Reason: Mild Pain Or Fever > 100.5 Cefdinir 300 mg PO Q12HR #2 cap Discharge Medication List Acetaminophen Tab [Tylenol] 650 mg PO Q6HR PRN tab 11/03/21 [Rx] Cefdinir 300 mg PO Q12HR #2 cap 11/03/21 [Rx] Metoprolol Tartrate [Lopressor] 25 mg PO BID #60 tab 11/03/21 [Rx] NIFEdipine XL [Procardia XL] 60 mg PO Q24H #30 tab 11/03/21 [Rx] Follow up Appointment(s)/Referral(s): [facility]enterology, [facility] [Other] - 1 Week (They will reach out to you with an appointment time for further evaluation) Honey Sewell MD [STAFF PHYSICIAN] - 1 Week None,Stated [Primary Care Provider] - 1-2 days Francisco Javier Johansen MD [STAFF PHYSICIAN] - 1 Week Discharge Disposition: HOME SELF-CARE
--- NOTE | 2021-11-03 15:05 | P.PN ---
Subjective Progress Note Date: 11/03/21 No acute overnight events and is clear, creatinine was 2.7 to yesterday Objective - Vital Signs Vital signs: Vital Signs Temp 98.0 F 11/03/21 12:00 Pulse 69 11/03/21 12:00 Resp 18 11/03/21 12:00 BP 139/64 11/03/21 12:00 Pulse Ox 97 11/03/21 12:00 FiO2 Intake & Output 11/02/21 11/03/21 11/03/21 18:59 06:59 18:59 Intake Total 240 560 Output Total 1825 Balance 240 -1265 Weight 76.8 kg Intake: Intake, IV Titration 560 Amount Sodium Chloride 0.9% 1, 560 000 ml @ 70 mls/hr IV . [id number] [facility] Rx#:[id number] Oral 240 Output: Urine 1825 Other: Voiding Method Indwelling Catheter Indwelling Catheter - Labs CBC & Chem 7: 11/02/21 08:55 11/02/21 08:55 Assessment and Plan Assessment: 81 yo make admitted MARIANELA with muscle invasive bladder cancer obstructing both ureters leading to renal failure and bilateral hydronephrosis. Underwent TURBT by Dr. Johansen on October 28, pathology is muscle invasive TCC. Creatinine is down to 2.7 . urine is clear this morning. MRCP yesterday showed persistent hydronephrosis, but creatinine has been trending down. Family is planning on following up with [facility] for management of his bladder cancer and pancreatic mass -Okay for discharge from urology standpoint, can be discharged home with the Huggins catheter can follow-up with Dr. Johansen next week.
--- NOTE | 2021-11-03 20:29 | PCN ---
PROCEDURE NOTE PREOPERATIVE DIAGNOSIS: Acute on chronic failure. PROCEDURE: Placement of dialysis catheter right femoral approach. DESCRIPTION OF PROCEDURE: The patient was seen in his room. Right groin was prepped and drapes applied in usual sterile manner. The stitches were removed and dialysis catheter was removed. Pressure was held. Pressure dressing applied. Patient tolerated the procedure well. MMODL / IJN: [id number] /
== END 2021-11-03 15:57 | disposition home or self-care (01) | DRG 669 ==
LOC: EC 10:54 → 5NMEDONC 13:53 → 3SCARD 15:32
PROVIDERS: ADMIT Internal Medicine; ATTEND Internal Medicine
PROC: B54BZZA Ultrasonography of Right Lower Extremity Veins, Guidance (ICD-10-PCS; 2021-10-28)
PROC: HZ2ZZZZ Detoxification Services for Substance Abuse Treatment (ICD-10-PCS; 2021-10-28)
PROC: 0TBB8ZZ Excision of Bladder, Via Natural or Artificial Opening Endoscopic (ICD-10-PCS; principal; 2021-10-28 12:20)
PROC: 06HM33Z Insertion of Infusion Device into Right Femoral Vein, Percutaneous Approach (ICD-10-PCS; 2021-10-28 12:20)
PROC: 5A1D70Z Performance of Urinary Filtration, Intermittent, Less than 6 Hours Per Day (ICD-10-PCS; 2021-10-29)
DX: C67.9 Malignant neoplasm of bladder, unspecified (principal); E87.2 Acidosis; K86.89 Other specified diseases of pancreas; N13.6 Pyonephrosis; N17.9 Acute kidney failure, unspecified; E65 Localized adiposity; E83.39 Other disorders of phosphorus metabolism; E87.5 Hyperkalemia; N13.9 Obstructive and reflux uropathy, unspecified; F10.10 Alcohol abuse, uncomplicated; N18.9 Chronic kidney disease, unspecified; R31.0 Gross hematuria; F17.210 Nicotine dependence, cigarettes, uncomplicated; I48.0 Paroxysmal atrial fibrillation; R35.0 Frequency of micturition; K40.90 Unilateral inguinal hernia, without obstruction or gangrene, not specified as recurrent; K59.00 Constipation, unspecified; N28.1 Cyst of kidney, acquired; Z79.899 Other long term (current) drug therapy; Z80.3 Family history of malignant neoplasm of breast
CPT/HCPCS: 36415; 51798; 74176; 74181; 80048; 80053; 81001; 83690; 83735; 84100; 85025; 85027; 85610; 85730; 86301; 86706; 87086; 87340; 88307; 90935; 93005; 96361; 96374; 96375; 99285

== ENCOUNTER → 2021-11-18 | Outpatient (CLI) | payer MEDICARE ==
--- NOTE | 2021-11-23 06:39 | PE ---
EXAMINATION TYPE: PET CT fusion skull to thigh DATE OF EXAM: 11/18/2021 COMPARISON: CT abdomen and pelvis October 28, 2021. MRCP November 02, 2021. HISTORY: Newly diagnosed bladder cancer. TECHNIQUE: Following the intravenous administration of 9.68 mCi of F-18 FDG, whole body images are p erformed from the skull base to the midthigh. Images are reviewed on the computer in the coronal, ax ial, and sagittal planes. Reconstructed rotating images are created on independent workstation and r eviewed on the computer. A localization and attenuation correction CT is performed in conjunction w ith the PET scan. Blood glucose level was 84 SCAN: Initial Scan FINDINGS: SKULL BASE AND NECK: No areas of abnormal hypermetabolic uptake. CHEST, MEDIASTINUM, AND HILAR REGION: No areas of abnormal hypermetabolic uptake. ABDOMEN AND PELVIS: Persistent right greater than left hydronephrosis. Improved distention of bladder with retained secreted contrast from recent CT and MRI in the left ureter and bladder. Bladder has e ccentric irregular wall thickening along the posterior right aspect extending from base into mid segm ent likely occluding bilateral UVJs causing hydronephrosis. Mild abnormal hypermetabolic uptake in th is curvilinear mass measuring approximately 4.1 x 1.4 cm axial image 221, max SUV difficult to obtain due to adjacent bladder uptake is suspected. No additional areas of abnormal hypermetabolic uptake. No adjacent abnormal hypermetabolic lymph nodes. OSSEOUS STRUCTURES: No abnormal hypermetabolic uptake. OTHER CT: Moderate to severe calcified plaque left greater than right carotid bulbs. Severe three-ves rina coronary artery calcification. Scattered small hypodense lesions consistent with benign thin-walled cysts throughout the liver. Larg er thin-walled cysts in the bilateral kidneys. Dilated main pancreatic duct into the head with some a trophy in the distal body and tail redemonstrated. There is large left inguinal hernia containing fat and portions of sigmoid colon with diverticula in the left and sigmoid colon present. Moderate calci fied plaque distal abdominal aorta extends into iliac branch vessels. There is low dense oval lesions in the posterior left upper thigh could reflect benign thin-walled cysts redemonstrated. IMPRESSION: Known bladder cancer causing obstructive bilateral hydronephrosis is redemonstrated. No m etastatic disease is seen.
== END | disposition home or self-care (01) ==
LOC: RADXRMAIN 14:14
PROVIDERS: ATTEND Internal Medicine Hematology & Oncology
DX: C67.9 Malignant neoplasm of bladder, unspecified (principal)
CPT/HCPCS: 78815; A9552

== ENCOUNTER 2021-12-16 11:11 | Inpatient (IN) | payer MEDICARE ==
[2021-12-16] MEDS ORDERED: SODIUM CHLORIDE 0.9% 1,000 ML IV STA (11:40)
--- NOTE | 2021-12-16 12:31 | ED ---
General Adult HPI - General Chief complaint: Syncope Stated complaint: post op infection Time Seen by Provider: 12/16/21 11:39 Source: patient Mode of arrival: wheelchair Limitations: no limitations - History of Present Illness Initial comments: Dictation was produced using [employer] dictation software. please excuse any grammatical, word or spelling errors. Chief Complaint: 81-year-old male presents emergency department for presyncopal event History of Present Illness: Patient is a 81-year-old male. Patient was recently hospitalized at [facility] after radical cystectomy was performed for treatment of bladder cancer. Patient was hospitalized at [facility] for several days. He's been at home for several days. Over the last 48-72 hours patient has developed watery diarrhea. Patient has not been on rece nt antibiotics however he was hospitalized at [facility]. Patient had a orthostatic presyncopal event. While patient's daughters who is at the bedside is a clinical pharmacist and concerned that patient may have Clostridium difficile. Patient has any pain complaints. The ROS documented in this emergency department record has been reviewed and confirmed by me. Those systems with pertinent positive or negative responses have been documented in the HPI. All other systems are other negative and/or noncontributory. PHYSICAL EXAM: General Impression: Alert and oriented x3, not in acute distress HEENT: Normocephalic atraumatic, extra-ocular movements intact, pupils equal and reactive to light bilaterally, mucous membranes moist. Cardiovascular: Heart regular rate and rhythm Chest: Able to complete full sentences, no retractions, no tachypnea Abdomen: abdomen soft, non-tender, non-distended, no organomegaly, ileostomy is clean dry and intact without any signs of infection. Musculoskeletal: Pulses present and equal in all extremities, no peripheral edema Motor: no focal deficits noted Neurological: CN II-XII grossly intact, no focal motor or sensory deficits noted Skin: Intact with no visualized rashes Psych: Normal affect and mood ED course: 81-year-old male presents emergency Department with diarrhea after having been treated and evaluated for bladder cancer at [facility]. He did have radical cystectomy and ileal conduit procedure. Laboratory evaluation obtained. CBC shows leukocytosis at 27.7. Daughter reports the patient has been slowly elevating white blood cell count. Hemoglobin is 9.4. Coag panel is negative. Metabolic panel shows acidosis with bicarb of 17 likely secondary to fluid water loss. There does appear to be acute kidney injury creatinine 2.65 however this appears to be around his baseline. His labs unremarkable. Pending C. diff studies. There is strong coca suspicion of C. diff infections. Patient started on oral vancomycin. Patient reevaluated at bedside at 2:15. Found to be in stable medical condition. I did speak with patient's primary care doctor who requested that patient be given fluids and stabilize and have patient go back to [facility] via private vehicle for further care. Patient's primary care doctor and patient's family was in contact with patient's primary surgeon who performed the radical procedure. Daughter who is a reliable historian spoke with surgery who requests that given that situation at [facility], patient's urologist Dr. Juarez preferred the patient be admitted at our facility for treatment. We will have the capabilities of managing dehydration, likely C. diff infection and presyncope at our facility. Daughter and patient are agreeable with plan. Pending blood cultures and urine cultures. Case was discussed with son physician group who are agreeable with admission. - Related Data Home Medications Medication Instructions Recorded Confirmed Apixaban [Eliquis] 2.5 mg PO BID 12/16/21 12/16/21 Previous Rx's Medication Instructions Recorded Acetaminophen Tab [Tylenol] 650 mg PO Q6HR PRN tab 11/03/21 Metoprolol Tartrate [Lopressor] 25 mg PO BID #60 tab 11/03/21 Allergies Allergy/AdvReac Type Severity Reaction Status Date / Time No Known Allergies Allergy Verified 12/16/21 14:01 Review of Systems ROS Statement: Those systems with pertinent positive or pertinent negative responses have been documented in the HPI. ROS Other: All systems not noted in ROS Statement are negative. Past Medical History Past Medical History: Cancer Additional Past Medical History / Comment(s): bladder CA History of Any Multi-Drug Resistant Organisms: None Reported Past Surgical History: No Surgical Hx Reported Additional Past Surgical History / Comment(s): urostomy Past Psychological History: No Psychological Hx Reported Past Drug Use History: None Reported - Past Family History Mother Additional Family Medical History / Comment(s): breast cancer Father Additional Family Medical History / Comment(s): heart disease General Exam Limitations: no limitations Course Vital Signs 12/16/21 11:31 Temperature 98.3 F Pulse Rate 78 Respiratory 18 Rate Blood Pressure 85/47 O2 Sat by Pulse 99 Oximetry Medical Decision Making - Lab Data Result diagrams: 12/16/21 12:07 12/16/21 12:07 Lab Results 12/16/21 12/16/21 12/16/21 Range/Units 12:07 12:07 12:07 WBC 27.7 H (3.8-10.6) k/uL RBC 3.00 L (4.30-5.90) m/uL Hgb 9.4 L D (13.0-17.5) gm/dL Hct 29.5 L (39.0-53.0) % MCV 98.1 (80.0-100.0) fL MCH 31.4 (25.0-35.0) pg MCHC 32.0 (31.0-37.0) g/dL RDW 14.1 (11.5-15.5) % Plt Count 431 (150-450) k/uL MPV 7.6 Neutrophils % 92 % Lymphocytes % 3 % Monocytes % 3 % Eosinophils % 1 % Basophils % 0 % Neutrophils # 25.5 H (1.3-7.7) k/uL Lymphocytes # 1.0 (1.0-4.8) k/uL Monocytes # 0.9 (0-1.0) k/uL Eosinophils # 0.2 (0-0.7) k/uL Basophils # 0.0 (0-0.2) k/uL Manual Slide Review Performed RBC Morphology Normal PT 11.1 (9.0-12.0) sec INR 1.0 (<1.2) APTT 25.3 (22.0-30.0) sec Sodium 129 L (137-145) mmol/L Potassium 4.2 (3.5-5.1) mmol/L Chloride 104 (98-107) mmol/L Carbon Dioxide 17 L (22-30) mmol/L Anion Gap 8 mmol/L BUN 38 H (9-20) mg/dL Creatinine 2.65 H (0.66-1.25) mg/dL Est GFR (CKD-EPI)AfAm 25 (>60 ml/min/1.73 sqM) Est GFR (CKD-EPI)NonAf 22 (>60 ml/min/1.73 sqM) Glucose 104 H (74-99) mg/dL Plasma Lactic Acid Rosalio (0.7-2.0) mmol/L Calcium 9.2 (8.4-10.2) mg/dL Magnesium 1.8 (1.6-2.3) mg/dL Total Bilirubin 0.4 (0.2-1.3) mg/dL AST 22 (17-59) U/L ALT 24 (4-49) U/L Alkaline Phosphatase 47 (38-126) U/L Total Protein 6.1 L (6.3-8.2) g/dL Albumin 3.0 L (3.5-5.0) g/dL C. difficile (EIA) Intrp (Negative) 12/16/21 12/16/21 Range/Units 12:07 12:24 WBC (3.8-10.6) k/uL RBC (4.30-5.90) m/uL Hgb (13.0-17.5) gm/dL Hct (39.0-53.0) % MCV (80.0-100.0) fL MCH (25.0-35.0) pg MCHC (31.0-37.0) g/dL RDW (11.5-15.5) % Plt Count (150-450) k/uL MPV Neutrophils % % Lymphocytes % % Monocytes % % Eosinophils % % Basophils % % Neutrophils # (1.3-7.7) k/uL Lymphocytes # (1.0-4.8) k/uL Monocytes # (0-1.0) k/uL Eosinophils # (0-0.7) k/uL Basophils # (0-0.2) k/uL Manual Slide Review RBC Morphology PT (9.0-12.0) sec INR (<1.2) APTT (22.0-30.0) sec Sodium (137-145) mmol/L Potassium (3.5-5.1) mmol/L Chloride (98-107) mmol/L Carbon Dioxide (22-30) mmol/L Anion Gap mmol/L BUN (9-20) mg/dL Creatinine (0.66-1.25) mg/dL Est GFR (CKD-EPI)AfAm (>60 ml/min/1.73 sqM) Est GFR (CKD-EPI)NonAf (>60 ml/min/1.73 sqM) Glucose (74-99) mg/dL Plasma Lactic Acid Rosalio 1.1 (0.7-2.0) mmol/L Calcium (8.4-10.2) mg/dL Magnesium (1.6-2.3) mg/dL Total Bilirubin (0.2-1.3) mg/dL AST (17-59) U/L ALT (4-49) U/L Alkaline Phosphatase (38-126) U/L Total Protein (6.3-8.2) g/dL Albumin (3.5-5.0) g/dL C. difficile (EIA) Intrp Positive A (Negative) Disposition Clinical Impression: C. difficile colitis Disposition: ADMITTED IP TO THIS [facility] Condition: Serious Referrals: Nonstaff,Physician [Primary Care Provider] - 1-2 days Decision Time: 15:21
[2021-12-16 12:38] LABS: Basophils % (A) 0 %; Eosinophils # (A) 0.2 k/uL (0-0.7); Eosinophils % (A) 1 %; HCT 29.5 % (39.0-53.0); Lymphocytes % (A) 3 %; MCH 31.4 pg (25.0-35.0); MCV 98.1 fL (80.0-100.0); Mean Platelet Volume 7.6; Monocytes # (A) 0.9 k/uL (0-1.0); Monocytes % (A) 3 %; Neutrophils # (A) 25.5 k/uL (1.3-7.7); Neutrophils % (A) 92 %; Platelet Count 431 k/uL (150-450); RDW 14.1 % (11.5-15.5); WBC 27.7 k/uL (3.8-10.6)
[2021-12-16 12:39] LABS: HGB 9.4 gm/dL (13.0-17.5)
[2021-12-16 12:41] LABS: Calcium 9.2 mg/dL (8.4-10.2); Magnesium 1.8 mg/dL (1.6-2.3); Potassium 4.2 mmol/L (3.5-5.1); Total Bilirubin 0.4 mg/dL (0.2-1.3); Total Protein 6.1 g/dL (6.3-8.2)
[2021-12-16 12:44] LABS: Partial Thromboplastin Time 25.3 sec (22.0-30.0); Prothrombin Time 11.1 sec (9.0-12.0)
[2021-12-16 13:11] LABS: RBC Morphology Normal
[2021-12-16] MEDS ORDERED: VANCOMYCIN 125 MG CAPSULE PO ONE (14:30)
[2021-12-16] MEDS ORDERED: CEFEPIME 2 GM in SODIUM CHLORIDE 0.9% 100 ML IVPB STA (15:13)
[2021-12-16] MEDS ORDERED: NALOXONE 0.4 MG/ML 1 ML VIAL IV PRN (15:16)
[2021-12-16] MEDS ORDERED: ACETAMINOPHEN TAB 325 MG TAB PO PRN (15:16)
[2021-12-16 16:07] LABS: Appearance,Urine Clear (Clear); Bilirubin,Urine Negative (Negative); Blood,Urine Small (Negative); Color,Urine Light Yellow; Glucose,Urine (UA) Negative (Negative); Ketones,Urine Negative (Negative); Leukocyte Esterase,Urine Moderate (Negative); Mucus,Urine Rare /hpf; Nitrite,Urine Negative (Negative); Protein,Urine Trace (Negative); Specific Gravity,Urine 1.006 (1.001-1.035); Urobilinogen,Urine <2.0 mg/dL (<2.0); WBC,Urine 8 /hpf (0-5)
[2021-12-16] MEDS: SODIUM CHLORIDE 0.9% 1,000 ML IV SCH (16:27)
[2021-12-16] MEDS ORDERED: ONDANSETRON 4 MG/2 ML VIAL IVP PRN (17:25)
[2021-12-16] MEDS ORDERED: MELATONIN 3 MG TABLET PO PRN (17:25)
--- NOTE | 2021-12-16 17:53 | P.HPIM ---
History of Present Illness H&P Date: 12/16/21 Patient is an 81-year-old male with recent radical cystectomy performed at [facility] for bladder cancer, tobacco abuse, and one episode of A fib who presented to the ED with complaints of watery diarrhea. On arrival to the ER he was hypotensive with blood pressure of 85/47. Urinalysis showed white blood cell count of 27.7, hemoglobin 9.4, sodium 129, carbon dioxide 17, anion gap 8, BUN 38, and creatinine 2.65 (last known creatinine 2.7 to here). He did come back with positive C. diff. He was given a dose of oral vancomycin. Arrangements were made of admission Patient was discharged from [facility] one week ago after a radical cystectomy for bladder cancer. He was doing well and only requiring tylenol for pain, but still with slightly low appetite. 2 days ago he started having profuse watery diarrhea. He has been going every 1.5 hours. He denies any belly pain or cramping. He had one fever on Sunday of 100.3 but no other procedures. He has been eating and drinking, but daughter is a clinical pharmacist and thinks not enough for how much diarrhea. He denies any blood in his stool, reported an unusual odor but patient did not appreciate it. No chest pain, SOB or other complaints. He got 24 hours of 1st generation cephalosporins at [facility] at time of surgery which occurred on 12/05/21. He did have a urine culture at [facility] earlier this week with pseudomonas, but it was not collected correctly. They have not noted any decreased urination or change in Urine. He has been having some blood tinged drainage from his penis the last week. His urologist, Dr. Juarez, has requested being called through the [facility] with any acute concerns per the daughter. He is also on eliquis for DVT prophylaxis for 30 days. He was on metoprolol in October after discharge from our facility, however his BP was low at home and he was instructed to stop the metoprolol. Pertinent positives and negatives as discussed in HPI, a complete review of systems was performed and all other systems are negative. Vital signs reviewed General: nontoxic, no distress, appears at stated age Derm: warm, dry Head: atraumatic, normocephalic, symmetric Eyes: EOMI, no lid lag, anicteric sclera, pupils equal round reactive to light ENT: Nose and ears atraumatic, no thrush, no pharyngeal erythema Neck: No thyromegaly, no cervical lymphadenopathy, trachea midline, supple Mouth: no lip lesion, mucus membranes dry Cardiovascular: S1S2 reg, no murmur, positive posterior tibial pulse bilateral, no edema, capillary refill less than 2 seconds Lungs: Decreased bs bilateral, no rhonchi, no rales, no wheeze, no accessory muscle use Abdominal: soft, nontender to palpation, no guarding, no appreciable organomegaly, normal bowel sounds, ostomy bag in place draining clear yellow urine without blood Ext: no gross muscle atrophy, moving all 4 extremities independently in bed no contractures Neuro: CN II-XII grossly intact, no tremors, fasciculations, no gross focal troy ro deficit Psych: Alert, oriented, appropriate affect Assessment/Plan: C diff colitis - Vano 4 times daily - regular diet at this time - encourage oral fluids - IV fluids - monitor for hypotension Bladder cancer with recent radical cystectomy - check urinalysis - if + culture consider treatment Non anion gap metabolic acidosis - likely secondary to renal dysfunction - follow labs - IV fluids Hyponatremia - suspect due to dehydration - IV fluids - repeat BMP in AM - if still low in AM check urien lytes and osmol Anemia, suspect acute blood loss - follow CBC - suspect due to acute blood loss - check iron studies. 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 diff. Surrogate decision-maker: CODE STATUS:full DVT prophylaxis: eliquis Discussed with: patient, nursing, ED provider, and Daughter Anticipated discharge date: on 3-[address]: home A total of 65 minutes was spent on the care of this complex patient more than 50% of the time was spent in counseling and care coordination. Past Medical History Past Medical History: Cancer Additional Past Medical History / Comment(s): bladder CA, one episode of A fib History of Any Multi-Drug Resistant Organisms: None Reported Additional Past Surgical History / Comment(s): urostomy, cystoscopy with bladder tumor ressection, radical cystectomy Past Psychological History: No Psychological Hx Reported Past Drug Use History: None Reported - Past Family History Mother Additional Family Medical History / Comment(s): breast cancer Father Additional Family Medical History / Comment(s): heart disease Medications and Allergies Home Medications Medication Instructions Recorded Confirmed Type Acetaminophen Tab [Tylenol] 650 mg PO Q6HR PRN tab 11/03/21 12/16/21 Rx Metoprolol Tartrate [Lopressor] 25 mg PO BID #60 tab 11/03/21 12/16/21 Rx Apixaban [Eliquis] 2.5 mg PO BID 12/16/21 12/16/21 History Allergies Allergy/AdvReac Type Severity Reaction Status Date / Time No Known Allergies Allergy Verified 12/16/21 14:01 Physical Exam Osteopathic Statement: *. No significant issues noted on an osteopathic structural exam other than those noted in the History and Physical/Consult. Vitals: Vital Signs Temp Pulse Resp BP Pulse Ox 12/16/21 15:34 87 18 118/63 96 12/16/21 11:31 98.3 F 78 18 85/47 99 Intake and Output 12/16/21 12/16/21 12/16/21 06:59 14:59 22:59 Other: Weight 74.389 kg Results CBC & Chem 7: 12/16/21 12:07 12/16/21 12:07 Labs: Abnormal Lab Results - Last 24 Hours (Table) 12/16/21 12/16/21 12/16/21 Range/Units 12:07 12:07 12:24 WBC 27.7 H (3.8-10.6) k/uL RBC 3.00 L (4.30-5.90) m/uL Hgb 9.4 L D (13.0-17.5) gm/dL Hct 29.5 L (39.0-53.0) % Neutrophils # 25.5 H (1.3-7.7) k/uL Sodium 129 L (137-145) mmol/L Carbon Dioxide 17 L (22-30) mmol/L BUN 38 H (9-20) mg/dL Creatinine 2.65 H (0.66-1.25) mg/dL Glucose 104 H (74-99) mg/dL Total Protein 6.1 L (6.3-8.2) g/dL Albumin 3.0 L (3.5-5.0) g/dL C. difficile (EIA) Intrp Positive A (Negative)
[2021-12-16] MEDS: VANCOMYCIN 125 MG CAPSULE PO SCH ×2 (19:11→21:41)
[2021-12-16] MEDS: APIXABAN 2.5 MG TABLET PO SCH (21:40)
--- NOTE | 2021-12-17 04:50 | XR ---
EXAMINATION TYPE: XR chest 1V portable DATE OF EXAM: 12/17/2021 COMPARISON: NONE HISTORY: Short of breath TECHNIQUE: Single view FINDINGS: Heart is normal. Lungs are clear of infiltrate. No heart failure. Costophrenic angles are c lear. Bony thorax is intact. IMPRESSION: No active cardiopulmonary disease. Normal heart
[2021-12-17] MEDS ORDERED: DILTIAZEM DRIP BOLUS FROM BAG 1 MG SOLN IV STA (05:05)
[2021-12-17] MEDS: SODIUM CHLORIDE 0.9% 1,000 ML IV SCH ×3 (05:45→20:55)
[2021-12-17] MEDS: DILTIAZEM 125 MG in SODIUM CHLORIDE 0.9% 100 ML IV SCH (06:00)
[2021-12-17 06:01] LABS: Glucose,Whole Blood 103 mg/dL (70-110)
[2021-12-17 07:15] LABS: HCT 28.4 % (39.0-53.0); HGB 8.9 gm/dL (13.0-17.5); Hypochromasia Slight; MCH 31.2 pg (25.0-35.0); MCHC 31.5 g/dL (31.0-37.0); Mean Platelet Volume 7.7; Platelet Count 423 k/uL (150-450); RBC 2.86 m/uL (4.30-5.90); RDW 14.1 % (11.5-15.5); WBC 27.6 k/uL (3.8-10.6)
[2021-12-17 08:09] LABS: African American GFR (CKD) 29 (>60 ml/min/1.73 sqM); Anion Gap 7 mmol/L; Blood Urea Nitrogen 30 mg/dL (9-20); Calcium 8.9 mg/dL (8.4-10.2); Carbon Dioxide 14 mmol/L (22-30); Chloride 110 mmol/L (98-107); Glucose 90 mg/dL (74-99); Magnesium 1.7 mg/dL (1.6-2.3); Non-African American GFR(CKD) 25 (>60 ml/min/1.73 sqM); Phosphorus 3.3 mg/dL (2.5-4.5); Sodium 131 mmol/L (137-145)
--- NOTE | 2021-12-17 10:06 | P.CRDCN ---
History of Present Illness History of present illness: HISTORY OF PRESENTING ILLNESS Patient is pleasant 81-year-old male with history of recent cystectomy at [facility] for bladder cancer newly diagnosed atrial fibrillation, tobacco abuse, CKD with previous renal failure requiring temporary dialysis who presents secondary to increased diarrhea, fatigue, lightheadedness. Patient underwent cystectomy for bladder cancer 12/05 and had been doing fairly well. He had been noted to have an episode of A. fib during prior admission at [facility] and apparently was placed on Eliquis as well as metoprolol. His blood pressure is too low and therefore metoprolol was discontinued. His daughter is a pharmacist and therefore has been monitoring him. His blood pressures have been on the lower side and has not had much of an appetite with increased diarrhea and therefore presented to emergency department. He was found to be borderline hypotensive and C. diff positive. He was given IV fluids with improvement and blood pressure. He then was noted to go into atrial fibrillation with heart rates in the 110s to 120s and was placed on Cardizem drip. He converted back to sinus rhythm currently. During the A. fib episode he did admit to some chest pressure sensation which she normally does not get. He did have some bleeding from around his penis however is not making urine and has a bag. Currently feeling better and denies any chest pressure. No history of any CAD. No history of stroke. He believes he did not have any echocardiogram at [facility]. REVIEW OF SYSTEMS At the time of my exam: CONSTITUTIONAL: +low grade fever, nochills. CARDIOVASCULAR: +Episode of chest pressure, no shortness of breath, orthopnea, PND or palpitations. RESPIRATORY: Denies cough. GASTROINTESTINAL: Denies abdominal pain, +diarrhea, no constipation, nausea or vomiting. MUSCULOSKELETAL: Denies myalgias. NEUROLOGIC: Denies numbness, tingling or weakness. ENDOCRINE: Denies fatigue, weight change, polydipsia or polyurina. GENITOURINARY: Denies burning, hematuria or urgency with micturation. HEMATOLOGIC: Denies history of anemia or bleeding. PHYSICAL EXAMINATION Vital signs reviewed. CONSTITUTIONAL: No apparent distress. HEENT: Head is normocephalic. Pupils are equal, round. Sclerae anicteric. Mucous membranes of the mouth are moist. No JVD. No carotid bruit. CHEST EXAMINATION: Lungs are clear to auscultation. No chest wall tenderness is noted on palpation or with deep breathing. HEART EXAMINATION: Regular rate and rhythm. S1, S2 heard. No murmurs, gallops or rub. ABDOMEN: Soft, nontender. Positive bowel sounds. EXTREMITIES: 2+ peripheral pulses, no lower extremity edema and no calf tenderness. NEUROLOGIC EXAMINATION: Patient is awake, alert and oriented x3. ASSESSMENT 1. Paroxysmal atrial fibrillation currently sinus rhythm 2. Chest pressure related to A. fib with RVR, rule out non-STEMI 3. Acute acute C. diff infection 4. Recent cystectomy 5. Mild bleeding around penis 6. Borderline blood pressure, hypotension mainly related to sepsis 7. Acute on chronic kidney disease 8. Anemia no significant bleeding, likely component of anemia of chronic disease and kidney disease. Monitor for any blood loss PLAN Patient currently sinus rhythm. Continue Eliquis and likely add beta christina if blood pressure improves. Hypotension likely mainly related to sepsis. Check 2- D echo for completeness sake. May consider antiarrhythmics pending progress however we will currently attempt for rate control. Given chest pressure checked troponins for completeness. Further recommendations to follow. Past Medical History Past Medical History: Cancer Additional Past Medical History / Comment(s): bladder CA, one episode of A fib History of Any Multi-Drug Resistant Organisms: None Reported Past Surgical History: No Surgical Hx Reported Additional Past Surgical History / Comment(s): urostomy, cystoscopy with bladder tumor ressection, radical cystectomy Past Psychological History: No Psychological Hx Reported Past Drug Use History: None Reported - Past Family History Mother Additional Family Medical History / Comment(s): breast cancer Father Additional Family Medical History / Comment(s): heart disease Medications and Allergies Home Medications Medication Instructions Recorded Confirmed Type Acetaminophen Tab [Tylenol] 650 mg PO Q6HR PRN tab 11/03/21 12/16/21 Rx Metoprolol Tartrate [Lopressor] 25 mg PO BID #60 tab 11/03/21 12/16/21 Rx Apixaban [Eliquis] 2.5 mg PO BID 12/16/21 12/16/21 History Allergies Allergy/AdvReac Type Severity Reaction Status Date / Time No Known Allergies Allergy Verified 12/16/21 14:01 Physical Exam Vitals: Vital Signs Temp Pulse Pulse Resp BP BP Pulse Ox 12/17/21 08:00 97.8 F 75 19 107/53 12/17/21 06:00 98.8 F 161 H 129 H 11 L 92/56 93/58 94 L 12/17/21 04:50 147 H 105/62 12/17/21 04:10 150 H 12/17/21 03:56 18 118/53 12/17/21 02:00 98.1 F 91 17 106/51 97 12/16/21 20:00 99.2 F 52 L 17 93/52 96 12/16/21 15:34 87 18 118/63 96 12/16/21 11:31 98.3 F 78 18 85/47 99 Intake and Output 12/16/21 12/17/21 12/17/21 22:59 06:59 14:59 Intake Total 855 Output Total 455 1 Balance 400 -1 Intake: IV 850 Sodium Chloride 0.9% 1, 850 000 ml @ 100 mls/hr IV . Q10H [facility] Rx#:[id number] Intake, IV Titration 5 Amount Diltiazem 125 mg In 5 Sodium Chloride 0.9% 100 ml @ 5 MG/HR 5 mls/hr IV .Q24H [facility] Rx#:[id number] Output: Urine 450 Stool 5 1 Other: Weight 74.389 kg Results 12/17/21 06:43 12/17/21 06:43 Cardiac Enzymes 12/16/21 Range/Units 12:07 AST 22 (17-59) U/L Coagulation 12/16/21 Range/Units 12:07 PT 11.1 (9.0-12.0) sec APTT 25.3 (22.0-30.0) sec CBC 12/16/21 12/17/21 Range/Units 12:07 06:43 WBC 27.7 H 27.6 H (3.8-10.6) k/uL RBC 3.00 L 2.86 L (4.30-5.90) m/uL Hgb 9.4 L D 8.9 L (13.0-17.5) gm/dL Hct 29.5 L 28.4 L (39.0-53.0) % Plt Count 431 423 (150-450) k/uL Comprehensive Metabolic Panel 12/16/21 12/17/21 Range/Units 12:07 06:43 Sodium 129 L 131 L (137-145) mmol/L Potassium 4.2 4.0 (3.5-5.1) mmol/L Chloride 104 110 H (98-107) mmol/L Carbon Dioxide 17 L 14 L (22-30) mmol/L BUN 38 H 30 H (9-20) mg/dL Creatinine 2.65 H 2.37 H (0.66-1.25) mg/dL Glucose 104 H 90 (74-99) mg/dL Calcium 9.2 8.9 (8.4-10.2) mg/dL AST 22 (17-59) U/L ALT 24 (4-49) U/L Alkaline Phosphatase 47 (38-126) U/L Total Protein 6.1 L (6.3-8.2) g/dL Albumin 3.0 L (3.5-5.0) g/dL Current Medications Generic Name Dose Route Start Last Admin Trade Name Freq PRN Reason Stop Dose Admin Acetaminophen 650 mg 12/16/21 15:16 Acetaminophen Tab 325 Mg Tab PO Q6HR PRN Mild Pain or Fever > 100.5 Apixaban 2.5 mg 12/16/21 21:00 12/16/21 21:40 Apixaban 2.5 Mg Tablet PO 2.5 mg BID [facility] Administration Protocol Sodium Chloride 1,000 mls @ 100 mls/hr 12/16/21 15:30 12/17/21 05:45 Saline 0.9% IV 100 mls/hr .Q10H [facility] Administration Diltiazem HCl 125 mg/ Sodium 125 mls @ 5 mls/hr 12/17/21 05:15 12/17/21 06:00 Chloride IV 5 mg/hr .Q24H [facility] 5 mls/hr Administration 5 MG/HR Melatonin 3 mg 12/16/21 17:25 Melatonin 3 Mg Tablet PO HS PRN Insomnia Naloxone HCl 0.2 mg 12/16/21 15:16 Naloxone 0.4 Mg/Ml 1 Ml Vial IV Q2M PRN Opioid Reversal Ondansetron HCl 4 mg 12/16/21 17:25 Ondansetron 4 Mg/2 Ml Vial IVP Q8HR PRN Nausea And Vomiting Vancomycin HCl 125 mg 12/16/21 18:00 12/16/21 21:41 Vancomycin 125 Mg Capsule PO 125 mg QID [facility] Administration Protocol Intake and Output 12/16/21 12/17/21 12/17/21 22:59 06:59 14:59 Intake Total 855 Output Total 455 1 Balance 400 -1 Intake: IV 850 Sodium Chloride 0.9% 1, 850 000 ml @ 100 mls/hr IV . Q10H [facility] Rx#:[id number] Intake, IV Titration 5 Amount Diltiazem 125 mg In 5 Sodium Chloride 0.9% 100 ml @ 5 MG/HR 5 mls/hr IV .Q24H [facility] Rx#:[id number] Output: Urine 450 Stool 5 1 Other: Weight 74.389 kg 12/17/21 06:43 12/17/21 06:43
[2021-12-17] MEDS: APIXABAN 2.5 MG TABLET PO SCH ×2 (11:25→20:53)
[2021-12-17] MEDS: VANCOMYCIN 125 MG CAPSULE PO SCH ×4 (11:25→20:54)
[2021-12-17 11:35] LABS: % Iron Saturation 5.09 (15.00-50.00); Iron 10 ug/dL (65-175); Total Iron Binding Capacity 192 ug/dL (228-460)
--- NOTE | 2021-12-17 11:54 | CA ---
Transthoracic Echo Report Name: Jt Burden Age: 81 Gender: M : 1940 Exam Date: 12/17/2021 10:36 Exam Location: [facility] Ht (in): 69 Wt (lb): 165 Ordering Physician: Pankaj Damico DO ([email or web address]) Attending/Referring Phys: Teacher'S Assistant Fe Turk RDCS Procedure CPT: Indications: re: AFib, chest pain Cardiac Hx: Technical Quality: Good Contrast 1: Total Dose (mL): Contrast 2: Total Dose (mL): MEASUREMENTS (Male / Female) Normal Values 2D ECHO LV Diastolic Diameter PLAX 4.2 cm 4.2 - 5.9 / 3.9 - 5.3 cm LV Systolic Diameter PLAX 2.8 cm IVS Diastolic Thickness 1.2 cm 0.6 - 1.0 / 0.6 - 0.9 cm LVPW Diastolic Thickness 1.1 cm 0.6 - 1.0 / 0.6 - 0.9 cm LV Relative Wall Thickness 0.5 RV Internal Dim ED PLAX 2.6 cm LA Systolic Diameter LX 3.2 cm 3.0 - 4.0 / 2.7 - 3.8 cm LA Volume 36.0 cm??? 18 - 58 / 22 - 52 cm??? M-MODE Aortic Root Diameter MM 3.5 cm MV E Point Septal Separation 1.0 cm AV Cusp Separation MM 2.1 cm DOPPLER AV Peak Velocity 137.0 cm/s AV Peak Gradient 7.5 mmHg MV Area PHT 3.4 cm??? Mitral E Point Velocity 74.4 cm/s Mitral A Point Velocity 68.3 cm/s Mitral E to A Ratio 1.1 MV Deceleration Time 221.7 ms MV E' Velocity 10.3 cm/s Mitral E to MV E' Ratio 7.2 TR Peak Velocity 221.1 cm/s TR Peak Gradient 19.6 mmHg Right Ventricular Systolic Press 24.0 mmHg FINDINGS Left Ventricle Left ventricular ejection fraction is estimated at 55-60 %. Left ventricular cavity size normal. Borderline left ventricular hypertrophy. Right Ventricle Normal right ventricular size and function. Right ventricular systolic pressure within normal limits. Right Atrium Normal right atrial size. Left Atrium Normal left atrial size. No evidence for an atrial septal defect. Mitral Valve Structurally normal mitral valve. No mitral stenosis, regurgitation or prolapse. Aortic Valve No aortic valve stenosis or regurgitation. Tricuspid Valve Trace to mild tricuspid regurgitation. Pulmonic Valve Trace pulmonic regurgitation. Pericardium Normal pericardium. No pericardial effusion. Aorta Normal size aortic root and proximal ascending aorta. CONCLUSIONS Normal left ventricular ejection fraction 55-60% Borderline LVH Trace to mild tricuspid regurgitation No pericardial effusion Previewed by: Dr. Pankaj Damico DO (Electronically Signed) Final Date: 17 December 2021 11:53
[2021-12-17] MEDS ORDERED: MAGNESIUM SULFATE-D5W PMX 1 GM in DEXTROSE/WATER 1 100ML.BAG IVPB ONE ×2 (13:00→14:00)
--- NOTE | 2021-12-17 13:45 | P.PN ---
Subjective Progress Note Date: 12/17/21 No new complaints. Patient's blood pressure has improved. Patient's heart rate is better controlled. Patient still has watery diarrhea. Patient has very little appetite. Gen: awake, alert HEENT: normocephalic, atraumatic, good hearing acuity, moist mucous membranes Resp: good air exchange, breathing comfortably with no accessory muscle use CVS: good distal perfusion x 4, GI: soft, NTTP, ND : no SPT, no CVAT, maria catheter not present MSK: no pitting edema, no clubbing Neuro: non-focal, moving all extremities Psych: cooperative, euthymic mood Assessment/plan: C diff colitis - Vanco 4 times daily - 250mg QID - regular diet at this time - encourage oral fluids - IV fluids - monitor for hypotension Bladder cancer with recent radical cystectomy - check urinalysis - if + culture consider treatment Non anion gap metabolic acidosis - likely secondary to renal dysfunction - follow labs - IV fluids Hyponatremia, improving - suspect due to dehydration - IV fluids - repeat BMP in AM - if still low in AM check urien lytes and osmol Anemia, suspect acute blood loss - follow CBC - suspect due to acute blood loss - check iron studies. 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 diff. Surrogate decision-maker: CODE STATUS:full DVT prophylaxis: eliquis Discussed with: patient, nursing, ED provider, and Daughter Anticipated discharge date: on 3-[address]: home A total of 65 minutes was spent on the care of this complex patient more than 50% of the time was spent in counseling and care coordination. Objective - Vital Signs Vital signs: Vital Signs Temp 97.8 F 12/17/21 08:00 Pulse 75 12/17/21 08:00 Resp 19 12/17/21 08:00 BP 107/53 12/17/21 08:00 Pulse Ox 94 L 12/17/21 06:00 FiO2 Intake & Output 12/16/21 12/17/21 12/17/21 18:59 06:59 18:59 Intake Total 855 Output Total 455 1 Balance 400 -1 Weight 74.389 kg Intake: IV 850 Sodium Chloride 0.9% 1, 850 000 ml @ 100 mls/hr IV . Q10H [facility] Rx#:[id number] Intake, IV Titration 5 Amount Diltiazem 125 mg In 5 Sodium Chloride 0.9% 100 ml @ 5 MG/HR 5 mls/hr IV .Q24H [facility] Rx#:[id number] Output: Urine 450 Stool 5 1 - Labs CBC & Chem 7: 12/17/21 06:43 12/17/21 06:43 Labs: Abnormal Lab Results - Last 24 Hours (Table) 12/16/21 12/16/21 12/17/21 Range/Units 12:24 15:48 06:43 WBC 27.6 H (3.8-10.6) k/uL RBC 2.86 L (4.30-5.90) m/uL Hgb 8.9 L (13.0-17.5) gm/dL Hct 28.4 L (39.0-53.0) % Sodium (137-145) mmol/L Chloride (98-107) mmol/L Carbon Dioxide (22-30) mmol/L BUN (9-20) mg/dL Creatinine (0.66-1.25) mg/dL Iron (65-175) ug/dL TIBC (228-460) ug/dL % Saturation (15.00-50.00) Transferrin (204.0-354.0) mg/dL Ferritin (22.0-322.0) ng/mL Troponin I (0.000-0.034) ng/mL Urine Protein Trace H (Negative) Urine Blood Small H (Negative) Ur Leukocyte Esterase Moderate H (Negative) Urine WBC 8 H (0-5) /hpf Urine Mucus Rare H (None) /hpf C. difficile (EIA) Intrp Positive A (Negative) 12/17/21 12/17/21 Range/Units 06:43 10:19 WBC (3.8-10.6) k/uL RBC (4.30-5.90) m/uL Hgb (13.0-17.5) gm/dL Hct (39.0-53.0) % Sodium 131 L (137-145) mmol/L Chloride 110 H (98-107) mmol/L Carbon Dioxide 14 L (22-30) mmol/L BUN 30 H (9-20) mg/dL Creatinine 2.37 H (0.66-1.25) mg/dL Iron 10 L (65-175) ug/dL TIBC 192 L (228-460) ug/dL % Saturation 5.09 L (15.00-50.00) Transferrin 137.0 L (204.0-354.0) mg/dL Ferritin 634.0 H (22.0-322.0) ng/mL Troponin I 0.582 H* (0.000-0.034) ng/mL Urine Protein (Negative) Urine Blood (Negative) Ur Leukocyte Esterase (Negative) Urine WBC (0-5) /hpf Urine Mucus (None) /hpf C. difficile (EIA) Intrp (Negative) Microbiology - Last 24 Hours (Table) 12/16/21 14:43 Stool Culture - Preliminary Stool
--- NOTE | 2021-12-17 22:15 | P.CONS ---
History of Present Illness - Reason for Consult Consult date: 12/17/21 Leukocytosis Requesting physician: Perry Temple - Chief Complaint Diarrhea 5 days - History of Present Illness Patient is 81-year male with a past medical history significant for bladder cancer in this patient who recently did have radical cystectomy perform ed at [facility], patient is not very clear if he has been on antibiotics or not and did well few days post surgery however over the last 2 days before presentation to the hospital the patient started having diarrhea with multiple loose stools per day patient denies having any blood or mucus in the stool has been complaining of some crampy abdominal pain intensity 4-5 out of 10 no radiation patient did have a decreased appetite some nausea but no vomiting with the symptoms the patient presented to hospital on arrival to the ER patient was afebrile subsequently did have a low-grade fever of 99 degrees formulae the patient did have elevated white count 27.7 with a left shift BUN c reatinine has been elevated patient did have elevated troponin urine has been mildly positive patient did have positive stool for C. difficile stool cultures pending blood cultures pending patient was started on oral vancomycin patient did have an episode of A. fib with RVR for the patient be transferred to the ICU infectious disease was consulted for further management Review of Systems Positive point has been mentioned in the HPI rest of the systems are negative Past Medical History Past Medical History: Cancer Additional Past Medical History / Comment(s): bladder CA, one episode of A fib History of Any Multi-Drug Resistant Organisms: None Reported Past Surgical History: No Surgical Hx Reported Additional Past Surgical History / Comment(s): urostomy, cystoscopy with bladder tumor ressection, radical cystectomy Past Psychological History: No Psychological Hx Reported Past Drug Use History: None Reported - Past Family History Mother Additional Family Medical History / Comment(s): breast cancer Father Additional Family Medical History / Comment(s): heart disease Medications and Allergies Home Medications Medication Instructions Recorded Confirmed Type Acetaminophen Tab [Tylenol] 650 mg PO Q6HR PRN tab 11/03/21 12/16/21 Rx Metoprolol Tartrate [Lopressor] 25 mg PO BID #60 tab 11/03/21 12/16/21 Rx Apixaban [Eliquis] 2.5 mg PO BID 12/16/21 12/16/21 History Allergies Allergy/AdvReac Type Severity Reaction Status Date / Time No Known Allergies Allergy Verified 12/16/21 14:01 Physical Exam Vitals: Vital Signs Temp Pulse Pulse Resp BP BP Pulse Ox 12/17/21 08:00 97.8 F 75 19 107/53 12/17/21 06:00 98.8 F 161 H 129 H 11 L 92/56 93/58 94 L 12/17/21 04:50 147 H 105/62 12/17/21 04:10 150 H 12/17/21 03:56 18 118/53 12/17/21 02:00 98.1 F 91 17 106/51 97 12/16/21 20:00 99.2 F 52 L 17 93/52 96 12/16/21 15:34 87 18 118/63 96 Intake and Output 12/16/21 12/17/21 12/17/21 22:59 06:59 14:59 Intake Total 855 Output Total 455 1 Balance 400 -1 Intake: IV 850 Sodium Chloride 0.9% 1, 850 000 ml @ 100 mls/hr IV . Q10H [facility] Rx#:[id number] Intake, IV Titration 5 Amount Diltiazem 125 mg In 5 Sodium Chloride 0.9% 100 ml @ 5 MG/HR 5 mls/hr IV .Q24H [facility] Rx#:[id number] Output: Urine 450 Stool 5 1 Other: Weight 74.389 kg GENERAL DESCRIPTION: Elderly male lying in bed, no distress. No tachypnea or accessory muscle of respiration use. HEENT: Shows Pallor , no scleral icterus. Oral mucous membrane is dry. No pharyngeal erythema or thrush NECK: Trachea central, no thyromegaly. LUNGS: Unlabored breathing. Decreased breath sound the bases. No wheeze or crackle. HEART: S1, S2, regular rate and rhythm. No loud murmur ABDOMEN: Soft, no tenderness , guarding or rigidity, no organomegaly EXTREMITIES: No edema of feet. SKIN: No rash, no masses palpable. NEUROLOGICAL: The patient is awake, alert, oriented x3, mood and affect normal. Results CBC & Chem 7: 12/17/21 06:43 12/17/21 06:43 Labs: Abnormal Lab Results - Last 24 Hours (Table) 12/16/21 12/16/21 12/16/21 Range/Units 12:07 12:24 15:48 WBC 27.7 H (3.8-10.6) k/uL RBC 3.00 L (4.30-5.90) m/uL Hgb 9.4 L D (13.0-17.5) gm/dL Hct 29.5 L (39.0-53.0) % Neutrophils # 25.5 H (1.3-7.7) k/uL Sodium (137-145) mmol/L Chloride (98-107) mmol/L Carbon Dioxide (22-30) mmol/L BUN (9-20) mg/dL Creatinine (0.66-1.25) mg/dL Iron (65-175) ug/dL TIBC (228-460) ug/dL % Saturation (15.00-50.00) Transferrin (204.0-354.0) mg/dL Ferritin (22.0-322.0) ng/mL Troponin I (0.000-0.034) ng/mL Urine Protein Trace H (Negative) Urine Blood Small H (Negative) Ur Leukocyte Esterase Moderate H (Negative) Urine WBC 8 H (0-5) /hpf Urine Mucus Rare H (None) /hpf C. difficile (EIA) Intrp Positive A (Negative) 12/17/21 12/17/21 12/17/21 Range/Units 06:43 06:43 10:19 WBC 27.6 H (3.8-10.6) k/uL RBC 2.86 L (4.30-5.90) m/uL Hgb 8.9 L (13.0-17.5) gm/dL Hct 28.4 L (39.0-53.0) % Neutrophils # (1.3-7.7) k/uL Sodium 131 L (137-145) mmol/L Chloride 110 H (98-107) mmol/L Carbon Dioxide 14 L (22-30) mmol/L BUN 30 H (9-20) mg/dL Creatinine 2.37 H (0.66-1.25) mg/dL Iron 10 L (65-175) ug/dL TIBC 192 L (228-460) ug/dL % Saturation 5.09 L (15.00-50.00) Transferrin 137.0 L (204.0-354.0) mg/dL Ferritin 634.0 H (22.0-322.0) ng/mL Troponin I 0.582 H* (0.000-0.034) ng/mL Urine Protein (Negative) Urine Blood (Negative) Ur Leukocyte Esterase (Negative) Urine WBC (0-5) /hpf Urine Mucus (None) /hpf C. difficile (EIA) Intrp (Negative) Microbiology - Last 24 Hours (Table) 12/16/21 14:43 Stool Culture - Preliminary Stool Assessment and Plan (1) C. difficile colitis Current Visit: Yes Status: Acute Code(s): A04.72 - ENTEROCOLITIS D/T CLOSTRIDIUM DIFFICILE, NOT SPCF RECUR SNOMED Code(s): 902378772 Plan: 1patient with elevated white count likely secondary to C. difficile colitis in this patient who recently did have a radical cystectomy for bladder cancer and possible exposure to antibiotic perioperatively as currently no other obvious focus of infection. 2patient to continue with the vancomycin 250 every 6 hours with the patient seem to have clinically responded 3patient advised to increase his probiotic and yogurt intake. We will follow on clinical condition and cultures to further adjust medication if needed Thank you for this consultation will follow this patient along with you Time with Patient: Greater than 30
[2021-12-18] MEDS: DILTIAZEM 125 MG in SODIUM CHLORIDE 0.9% 100 ML IV SCH (07:47)
[2021-12-18] MEDS: APIXABAN 2.5 MG TABLET PO SCH ×2 (08:39→20:16)
[2021-12-18] MEDS: VANCOMYCIN 125 MG CAPSULE PO SCH ×4 (08:39→20:16)
[2021-12-18] MEDS: LACTOBACILLUS ACIDOPH & BULGAR 1 EACH PACKET PO SCH ×2 (08:39→20:17)
[2021-12-18] MEDS: SODIUM CHLORIDE 0.9% 1,000 ML IV SCH ×3 (08:40→20:17)
--- NOTE | 2021-12-18 10:58 | P.PN ---
Subjective HISTORY OF PRESENTING ILLNESS Patient is pleasant 81-year-old male with history of recent cystectomy at [facility] for bladder cancer newly diagnosed atrial fibrillation, tobacco abuse, CKD with previous renal failure requiring temporary dialysis who presents secondary to increased diarrhea, fatigue, lightheadedness. Patient underwent cystectomy for bladder cancer 12/05 and had been doing fairly well. He had been noted to have an episode of A. fib during prior admission at [facility] and apparently was placed on Eliquis as well as metoprolol. His blood pressure is too low and therefore metoprolol was discontinued. His daughter is a pharmacist and therefore has been monitoring him. His blood pressures have been on the lower side and has not had much of an appetite with increased diarrhea and therefore presented to emergency department. He was found to be borderline hypotensive and C. diff positive. He was given IV fluids with improvement and blood pressure. He then was noted to go into atrial fibrillation with heart rates in the 110s to 120s and was placed on Cardizem drip. He converted back to sinus rhythm currently. During the A. fib episode he did admit to some chest pressure sensation which she normally does not get. He did have some bleeding from around his penis however is not making urine and has a bag. Currently feeling better and denies any chest pressure. No history of any CAD. No history of stroke. He believes he did not have any echocardiogram at [facility]. 12/18 Patient seen and examined. Patient remains in sinus rhythm. Denies any further chest pressure or tightness since being in sinus rhythm. Troponinsmildly elevated 0.5 and 0.7. Echocardiogram reviewed with preserved EF 55-60% without valvular disease. He states his diarrhea has somewhat improved. Blood pressures mildly better and we will add home metoprolol back on. PHYSICAL EXAMINATION Vital signs reviewed. CONSTITUTIONAL: No apparent distress. HEENT: Head is normocephalic. Pupils are equal, round. Sclerae anicteric. Mucous membranes of the mouth are moist. No JVD. No carotid bruit. CHEST EXAMINATION: Lungs are clear to auscultation. No chest wall tenderness is noted on palpation or with deep breathing. HEART EXAMINATION: Regular rate and rhythm. S1, S2 heard. No murmurs, gallops or rub. ABDOMEN: Soft, nontender. Positive bowel sounds. EXTREMITIES: 2+ peripheral pulses, no lower extremity edema and no calf tenderness. NEUROLOGIC EXAMINATION: Patient is awake, alert and oriented x3. ASSESSMENT 1. Paroxysmal atrial fibrillation currently sinus rhythm 2. Non-STEMI with some chest pressure during Afib. Type 2 mechanism related to Afib with RVR, sepsis, CKD 3. Acute acute C. diff infection 4. Recent cystectomy 5. Mild bleeding around penis 6. Borderline blood pressure, hypotension mainly related to sepsis 7. Acute on chronic kidney disease 8. Anemia no significant bleeding, likely component of anemia of chronic disease and kidney disease. Monitor for any blood loss PLAN Troponinsbe elevated with significant chest pain and pressure during his A. fib with RVR episode. Majority of symptoms appear related to infectious etiology as well as A. fib with RVR. Echo shows preserved EF with EF 55-60%. We will continue to treat medically and blood pressures appear somewhat more stable and we will add antianginals with metoprolol back on. If he has recurrent episodes of chest pressure may consider further ischemic evaluation however appears mainly related to sepsis in A. fib with RVR. Monitor hemoglobin on anticoagulation and creatinine closely. Further recommendations follow. Objective - Vital Signs Vital signs: Vital Signs Temp 98.2 F 12/18/21 08:00 Pulse 74 12/18/21 08:00 Resp 17 12/18/21 08:00 BP 128/67 12/18/21 08:00 Pulse Ox 94 L 12/17/21 06:00 FiO2 Intake & Output 12/17/21 12/18/21 12/18/21 18:59 06:59 18:59 Intake Total 15.833 1100 Output Total 852 1301 Balance -836.167 -201 Intake: IV 1100 Sodium Chloride 0.9% 1, 1100 000 ml @ 100 mls/hr IV . Q10H [facility] Rx#:[id number] Intake, IV Titration 15.833 Amount Diltiazem 125 mg In 15.833 Sodium Chloride 0.9% 100 ml @ 5 MG/HR 5 mls/hr IV .Q24H [facility] Rx#:[id number] Output: Urine 850 1300 Stool 2 1 - Labs CBC & Chem 7: 12/17/21 06:43 12/17/21 06:43 Labs: Abnormal Lab Results - Last 24 Hours (Table) 12/17/21 12/17/21 12/17/21 Range/Units 06:43 10:19 14:18 Iron 10 L (65-175) ug/dL TIBC 192 L (228-460) ug/dL % Saturation 5.09 L (15.00-50.00) Transferrin 137.0 L (204.0-354.0) mg/dL Ferritin 634.0 H (22.0-322.0) ng/mL Troponin I 0.582 H* 0.782 H* (0.000-0.034) ng/mL 12/17/21 Range/Units 17:07 Iron (65-175) ug/dL TIBC (228-460) ug/dL % Saturation (15.00-50.00) Transferrin (204.0-354.0) mg/dL Ferritin (22.0-322.0) ng/mL Troponin I 0.700 H* (0.000-0.034) ng/mL Microbiology - Last 24 Hours (Table) 12/16/21 15:40 Blood Culture - Preliminary Blood No Growth after 24 hours 12/16/21 15:40 Blood Culture - Preliminary Blood No Growth after 24 hours
[2021-12-18] MEDS: METOPROLOL TARTRATE 25 MG TAB PO SCH ×2 (11:37→20:16)
--- NOTE | 2021-12-18 14:01 | P.PN ---
Subjective Progress Note Date: 12/18/21 No new complaints. Patient's blood pressure is stable. Patient's heart rate is better controlled, off of dilt gtt and on metoprolol. Patient still has watery diarrhea, but frequency has improved. Patient's appetite improved. Gen: awake, alert HEENT: normocephalic, atraumatic, good hearing acuity, moist mucous membranes Resp: good air exchange, breathing comfortably with no accessory muscle use CVS: good distal perfusion x 4, GI: soft, NTTP, ND : no SPT, no CVAT, maria catheter not present MSK: no pitting edema, no clubbing Neuro: non-focal, moving all extremities Psych: cooperative, euthymic mood Assessment/plan: C diff colitis - Vanco 4 times daily - 250mg QID - regular diet at this time - encourage oral fluids - IV fluids - monitor for hypotension Bladder cancer with recent radical cystectomy - check urinalysis - if + culture consider treatment Non anion gap metabolic acidosis - likely secondary to renal dysfunction - follow labs - IV fluids Hyponatremia, improving - suspect due to dehydration - IV fluids - repeat BMP in AM - if still low in AM check urien lytes and osmol Anemia, suspect acute blood loss - follow CBC - suspect due to acute blood loss - check iron studies. 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 diff. Surrogate decision-maker: CODE STATUS:full DVT prophylaxis: tiannaqumaryse Anticipated discharge date: on 3-[address]: home Objective - Vital Signs Vital signs: Vital Signs Temp 98.1 F 12/18/21 12:00 Pulse 65 12/18/21 12:00 Resp 17 12/18/21 12:00 BP 114/62 12/18/21 12:00 Pulse Ox 94 L 12/17/21 06:00 FiO2 Intake & Output 12/17/21 12/18/21 12/18/21 18:59 06:59 18:59 Intake Total 15.833 1100 Output Total 852 1301 Balance -836.167 -201 Intake: IV 1100 Sodium Chloride 0.9% 1, 1100 000 ml @ 100 mls/hr IV . Q10H [facility] Rx#:[id number] Intake, IV Titration 15.833 Amount Diltiazem 125 mg In 15.833 Sodium Chloride 0.9% 100 ml @ 5 MG/HR 5 mls/hr IV .Q24H [facility] Rx#:[id number] Output: Urine 850 1300 Stool 2 1 - Labs CBC & Chem 7: 12/17/21 06:43 12/17/21 06:43 Labs: Abnormal Lab Results - Last 24 Hours (Table) 12/17/21 12/17/21 Range/Units 14:18 17:07 Troponin I 0.782 H* 0.700 H* (0.000-0.034) ng/mL Microbiology - Last 24 Hours (Table) 12/16/21 15:40 Blood Culture - Preliminary Blood No Growth after 24 hours 12/16/21 15:40 Blood Culture - Preliminary Blood No Growth after 24 hours
[2021-12-19] MEDS: DILTIAZEM 125 MG in SODIUM CHLORIDE 0.9% 100 ML IV SCH (00:34)
[2021-12-19 07:49] LABS: Calcium 8.9 mg/dL (8.4-10.2); Magnesium 1.9 mg/dL (1.6-2.3); Potassium 4.4 mmol/L (3.5-5.1)
[2021-12-19 08:03] LABS: Basophils # (A) 0.1 k/uL (0-0.2); Basophils % (A) 0 %; Eosinophils # (A) 0.8 k/uL (0-0.7); Eosinophils % (A) 6 %; HCT 28.5 % (39.0-53.0); HGB 8.8 gm/dL (13.0-17.5); Hypochromasia Moderate; Lymphocytes # (A) 2.4 k/uL (1.0-4.8); Lymphocytes % (A) 17 %; MCH 30.3 pg (25.0-35.0); MCHC 30.9 g/dL (31.0-37.0); MCV 97.9 fL (80.0-100.0); Mean Platelet Volume 7.6; Monocytes # (A) 0.9 k/uL (0-1.0); Monocytes % (A) 7 %; Neutrophils # (A) 9.4 k/uL (1.3-7.7); Neutrophils % (A) 69 %; Platelet Count 461 k/uL (150-450); RBC 2.91 m/uL (4.30-5.90); RDW 13.9 % (11.5-15.5); WBC 13.7 k/uL (3.8-10.6)
[2021-12-19] MEDS: METOPROLOL TARTRATE 25 MG TAB PO SCH (09:23)
[2021-12-19] MEDS: APIXABAN 2.5 MG TABLET PO SCH (09:23)
[2021-12-19] MEDS: LACTOBACILLUS ACIDOPH & BULGAR 1 EACH PACKET PO SCH (09:23)
[2021-12-19] MEDS: VANCOMYCIN 125 MG CAPSULE PO SCH ×2 (10:34→15:29)
--- NOTE | 2021-12-19 11:37 | P.DS ---
Providers Date of admission: 12/16/21 15:17 Expected date of discharge: 12/19/21 Attending physician: Kaleigh Rust, Consults: 12/16/21 15:13 Consult Physician Routine Consulting Provider: Beatrice Gaona Consult Reason/Comments: leukocytosis Do you want consulting provider notified?: Yes 12/17/21 05:05 Consult Physician Urgent Consulting Provider: Seun Plaza Consult Reason/Comments: afib Do you want consulting provider notified?: Yes Primary care physician: Physician Nonstaff Hospital Course: Discharge Diagnosis: C. Diff colitis P. A fib with RVR Bladder cancer with recent radical cystectomy Non anion gap metabolic acidosis Hyponatremia, improving Anemia, suspect acute blood loss, ferritin elevated CKD IV Hospital Course: Patient is an 81-year-old male with recent radical cystectomy performed at [facility] for bladder cancer, tobacco abuse, and one episode of A fib who presented to the ED with complaints of watery diarrhea. On arrival to the ER he was hypotensive with blood pressure of 85/47. Urinalysis showed white blood cell count of 27.7, hemoglobin 9.4, sodium 129, carbon dioxide 17, anion gap 8, BUN 38, and creatinine 2.65 (last known creatinine 2.7 to here). He did come back with positive C. diff. He was given a dose of oral vancomycin. Arrangements were made of admission. He continued to do well but did develop an episode of A fib requiring a cardiem gtt he was trastitioned to oral metoprolol and did well. He is already on appropriate eliquis dosing given his age and renal function. He was seen by ID who recommended increasing vanco to 250 mg 4 times daily. He converted to sinus rhythm. He was having 4 bowel movements daily and was determined stable for discharge. Echo: EF 55-60% Follow-up: Dr. Damico in 2 weeks His [facility] urologist later this week Take vancomycin until completed. Patient seen and examined at bedside. Doing well, diarrhea has slowed to 4 bowel movemets. No chest pain or shortnes of breath. Vital signs reviewed and stable. General: nontoxic, no distress, appears at stated age Derm: warm, dry Head: atraumatic, normocephalic, symmetric Eyes: EOMI, no lid lag, anicteric sclera Mouth: no lip lesion, mucus membranes moist Cardiovascular: S1S2 reg, no murmur, positive posterior tibial pulse bilateral, Lungs: CTA bilateral, no rhonchi, no rales , no accessory muscle use Abdominal: soft, nontender to palpation, no guarding, no appreciable organomegaly, urine clear in ostomy bag Ext: no gross muscle atrophy, no edema, no contractures Neuro: CN II-XI grossly intact, no focal neuro deficits Psych: Alert, oriented, appropriate affect A total of 42 minutes of time were spent preparing this complex discharge summ juneau. Patient was discharged on 12/19/21. Patient Condition at Discharge: Stable Plan - Discharge Summary Discharge Rx Participant: Yes New Discharge Prescriptions: New Metoprolol Tartrate [Lopressor] 25 mg PO BID #60 tab Vancomycin 250 mg PO QID #56 cap Continue Acetaminophen Tab [Tylenol] 650 mg PO Q6HR PRN tab PRN Reason: Mild Pain Or Fever > 100.5 Apixaban [Eliquis] 2.5 mg PO BID #60 tab Discontinued Metoprolol Tartrate [Lopressor] 25 mg PO BID #60 tab Discharge Medication List Acetaminophen Tab [Tylenol] 650 mg PO Q6HR PRN tab 11/03/21 [Rx] Apixaban [Eliquis] 2.5 mg PO BID #60 tab 12/19/21 [Rx] Metoprolol Tartrate [Lopressor] 25 mg PO BID #60 tab 12/19/21 [Rx] Vancomycin 250 mg PO QID #56 cap 12/19/21 [Rx] Follow up Appointment(s)/Referral(s): Pankaj Damico DO [STAFF PHYSICIAN] - 1 Week Nonstaff,Physician [Primary Care Provider] - 1-2 days (your [facility]rologist from [facility] later this week) Activity/Diet/Wound Care/Special Instructions: Activity: as tolerated Diet: regular Special Instructions: Continue to clean bathroom with bleach containing products Encourage oral intake Can take lactobacillus to help restore normal gut genie Follow with your [facility]ist this week, Urinalysis here had 8 WBC not consistent with UTI and no culture indicated. Please ensure that you let all future clinicians know that you have had C diff in the past. Thank you for trusting us with your care, we wish you well on your journey to [facility] will be completed on 12/25/21 Discharge Disposition: HOME SELF-CARE
[2021-12-19 12:11] VITALS: BP 155/69; PULSE 63; RESP 18; TEMP 98
--- NOTE | 2021-12-19 13:13 | P.PN ---
Subjective Patient is pleasant 81-year-old male with history of recent cystectomy at [facility] for bladder cancer newly diagnosed atrial fibrillation, tobacco abuse, CKD with previous renal failure requiring temporary dialysis. He does not follow with a arboreal scientist. He presented to the hospital secondary to increased diarrhea, fatigue, lightheadedness. Patient underwent cystectomy for bladder cancer 12/05 and had been doing fairly well. He had been noted to have an episode of A. fib during prior admission at [facility] and apparently was placed on Eliquis as well as metoprolol. His blood pressure is too low and therefore metoprolol was discontinued. His daughter is a pharmacist and therefore has been monitoring him. His blood pressures have been on the lower side and has not had much of an appetite with increased diarrhea and therefore presented to emergency department. He was found to be borderline hypotensive and C. diff positive. He was given IV fluids with improvement and blood pressure. He then was noted to go into atrial fibrillation with heart rates in the 110s to 120s and was placed on Cardizem drip. He converted back to sinus rhythm currently. During the A. fib episode he did admit to some chest pressure sensation which she normally does not get. He did have some bleeding from around his penis however is not making urine and has a bag. 12/18 Patient seen and examined. Patient remains in sinus rhythm. Denies any further chest pressure or tightness since being in sinus rhythm. Troponinsmildly elevated 0.5 and 0.7. Echocardiogram reviewed with preserved EF 55-60% without valvular disease. He states his diarrhea has somewhat improved. Blood pressures mildly better and we will add home metoprolol back on. 12/19 Patient seen and examined at bedside, up in the bedside chair, no acute di stress. Feeling well, diarrhea improved. VSS. Maintaining sinus mechanism. Currently anticoagulated with Eliquis 2.5mg BID dose due to age and renal function. PHYSICAL EXAMINATION Vital signs reviewed. CONSTITUTIONAL: No apparent distress. HEENT: Head is normocephalic. Pupils are equal, round. Sclerae anicteric. Mucous membranes of the mouth are moist. No JVD. No carotid bruit. CHEST EXAMINATION: Lungs are clear to auscultation. No chest wall tenderness is noted on palpation or with deep breathing. HEART EXAMINATION: Regular rate and rhythm. S1, S2 heard. No murmurs, gallops or rub. ABDOMEN: Soft, nontender. Positive bowel sounds. EXTREMITIES: 2+ peripheral pulses, no lower extremity edema and no calf tenderness. NEUROLOGIC EXAMINATION: Patient is awake, alert and oriented x3. ASSESSMENT Paroxysmal atrial fibrillation currently sinus rhythm on Eliquis Non-STEMI with some chest pressure during Afib. Type 2 mechanism related to Afib with RVR, sepsis, CKD Acute acute C. diff infection Recent cystectomy Mild bleeding around penis Borderline blood pressure, hypotension mainly related to sepsis Acute on chronic kidney disease Anemia no significant bleeding, likely component of anemia of chronic disease and kidney disease. Monitor for any blood loss PLAN Troponinsbe elevated with significant chest pain and pressure during his A. fib with RVR episode. Majority of symptoms appear related to infectious etiology as well as A. fib with RVR. Echo shows preserved EF with EF 55-60%. We will continue to treat medically and blood pressures more stable. From cardiology perspective, patient stable. Follow up outpatient with Dr. Damico Nurse practitioner note has been reviewed by physician. Signing provider agrees with the documented findings, assessment, and plan of care. Objective - Vital Signs Vital signs: Vital Signs Temp 98.0 F 12/19/21 12:10 Pulse 63 12/19/21 12:10 Resp 18 12/19/21 12:10 BP 155/69 12/19/21 12:10 Pulse Ox 100 12/19/21 12:10 FiO2 Intake & Output 12/18/21 12/19/21 12/19/21 18:59 06:59 18:59 Intake Total 360 540 180 Output Total 400 1000 1500 Balance -40 460 1320 Intake: Oral 360 540 180 Output: Urine 400 1000 1500 Other: Voiding Method Ileal Conduit (Right) - Labs CBC & Chem 7: 12/19/21 07:05 12/19/21 07:05 Labs: Abnormal Lab Results - Last 24 Hours (Table) 12/19/21 12/19/21 Range/Units 07:05 07:05 WBC 13.7 H (3.8-10.6) k/uL RBC 2.91 L (4.30-5.90) m/uL Hgb 8.8 L (13.0-17.5) gm/dL Hct 28.5 L (39.0-53.0) % MCHC 30.9 L (31.0-37.0) g/dL Plt Count 461 H (150-450) k/uL Neutrophils # 9.4 H (1.3-7.7) k/uL Eosinophils # 0.8 H (0-0.7) k/uL Sodium 136 L (137-145) mmol/L Chloride 117 H (98-107) mmol/L Carbon Dioxide 16 L (22-30) mmol/L BUN 26 H (9-20) mg/dL Creatinine 1.90 H (0.66-1.25) mg/dL Microbiology - Last 24 Hours (Table) 12/16/21 15:40 Blood Culture - Preliminary Blood No Growth after 48 hours 12/16/21 15:40 Blood Culture - Preliminary Blood No Growth after 48 hours 12/16/21 14:43 Stool Culture - Preliminary Stool
--- NOTE | 2021-12-19 15:31 | CDI ---
Documentation Clarification Form Date: 12/19/2021 03:23:26 PM From: Madiha Thomas CCS, CCDS Admit Date: 12/16/2021 03:17:00 PM Patient Name: Jt Burden Visit Number: [id number] Discharge Date: ATTENTION: The Clinical Documentation Specialists (CDI) and [facility] Coding Staff appreciate your assistance in clarifying documentation. Please respond to the clarification below the line at the bottom and electronically sign. The CDI & [facility] Coding staff will review the response and follow-up if needed. Please note: Queries are made part of the Legal Health Record. If you have any questions, please contact the author of this message via ITS. Dr. Kaleigh Rust: The patient presented with the following clinical indicators. Additional clarification regarding the etiology/cause of the clinical indicators is requested. Sepsis is documented in the 12/17 Cardiology Consult and in subsequent Cardiology Progress Notes. History/Risk Factors per the 12/16 H/P: Bladder cancer status post cystectomy at [facility], Atrial fib (new onset), CKD IV, Tobacco abuse. Clinical Indicators: Presented to the ED on 12/16 with watery diarrhea. Admit with C Diff colitis. 12/16 VS: T 98.3, P 78, R 18, BP 85/47, PO 99 RA,BMI: 24.2 12/16 LAB: WBC 27.7, RBC 3.00, Hgb 9.4, Hct 29.5, Neutrophils 25.5; Na 129, CO2 17, BUN 38, Creatinine 2.65, Glucose 104, Total protein 6.1, Albumin 3.0 12/16 UA: clear, Trace protein, Small blood, Moderate esterase, WBC 8. 12/16 C Diff: Positive Treatment 12/16: Fall precautions, Infectious Disease Consult, Blood cultures, Stool culture, IV Na Chl 1,000 mls @ 999 mls/hr q1H, po Vanco 125 mg x1, IV Na Chl 1,000 mls @ 100 mls/hr q10H. In your professional opinion, please clarify if these findings signify one of the following conditions: [ ] Sepsis POA [ ] Sepsis, Not POA [ ] Sepsis ruled out [ ] Severe Sepsis with organ failure [ ] Other, please specify [ ] Unable to determine (Template Last Reviewed: June 2020) Sepsis ruled out due to not meeting 2 SIRS criteria MTDD
== END 2021-12-19 15:34 | disposition home or self-care (01) | DRG 371 ==
LOC: EC 11:11 → 4SSUR 15:17 → 2SICU 12-17 06:32 → 3SCARD 12-18 14:13
PROVIDERS: ADMIT Internal Medicine; ATTEND Internal Medicine
DX: A04.72 Enterocolitis due to Clostridium difficile, not specified as recurrent (principal); I21.A1 Myocardial infarction type 2; D62 Acute posthemorrhagic anemia; E87.1 Hypo-osmolality and hyponatremia; E87.2 Acidosis; N17.9 Acute kidney failure, unspecified; N18.4 Chronic kidney disease, stage 4 (severe); I37.1 Nonrheumatic pulmonary valve insufficiency; I07.1 Rheumatic tricuspid insufficiency; C67.9 Malignant neoplasm of bladder, unspecified; I48.0 Paroxysmal atrial fibrillation; I95.9 Hypotension, unspecified; N48.89 Other specified disorders of penis; D63.1 Anemia in chronic kidney disease; D63.8 Anemia in other chronic diseases classified elsewhere; E86.0 Dehydration; Z90.6 Acquired absence of other parts of urinary tract; Z79.01 Long term (current) use of anticoagulants; Z79.899 Other long term (current) drug therapy; Z86.718 Personal history of other venous thrombosis and embolism; Z80.3 Family history of malignant neoplasm of breast; Z82.49 Family history of ischemic heart disease and other diseases of the circulatory system; Z85.51 Personal history of malignant neoplasm of bladder; Z87.891 Personal history of nicotine dependence; Z90.49 Acquired absence of other specified parts of digestive tract
CPT/HCPCS: 36415; 71045; 80048; 80053; 81001; 82728; 83540; 83550; 83605; 83735; 84100; 84484; 85025; 85027; 85610; 85730; 87040; 87045; 87046; 87324; 93005; 93306; 96360; 99285

== ENCOUNTER → 2022-01-03 | Outpatient (CLI) | payer MEDICARE ==
[2022-01-03 14:34] LABS: HCT 30.5 % (39.6-50.0); HGB 9.4 g/dL (13.0-17.0); MCH 30.4 pg (27.0-32.0); MCHC 30.8 g/dL (32.0-37.0); MCV 98.7 fL (80.0-97.0); Mean Platelet Volume 11.3 fL (9.5-12.2); NRBC Per 100 WBC 0 /100 WBCS (0.0-0.0); Platelet Count 356 X 10*3/uL (140-440); RBC 3.09 X 10*6/uL (4.40-5.60); RDW 15.7 % (11.5-14.5); WBC 8.45 X 10*3/uL (4.50-10.00)
[2022-01-03 15:08] LABS: % Iron Saturation 18.17 (15.00-50.00); Albumin 3.5 g/dL (3.8-4.9); Albumin/Globulin Ratio 1.14 (1.60-3.17); Anion Gap 10.3 mmol/L (10.00-18.00); BUN/Creat Ratio 20.38 Ratio (12.00-20.00); Calcium 10.1 mg/dL (8.7-10.3); Globulin 3.1 g/dL (1.6-3.3); Non-African American GFR(CKD) 28.5 (60.0-200.0); Phosphorus 3.5 mg/dL (2.4-5.1); Total Bilirubin 0.2 mg/dL (0.30-1.20); Total Protein 6.6 g/dL (6.2-8.2)
[2022-01-03 16:11] LABS: Appearance,Urine Clear (Clear); Bilirubin,Urine Negative (Negative); Blood,Urine Large (Negative); Color,Urine Yellow (Yellow); Ketones,Urine Negative (Negative); Nitrite,Urine Negative (Negative); PH, Urine 7.5 (5.0-8.0); Specific Gravity,Urine 1.011 (1.001-1.030); Urobilinogen,Urine 0.2 (0.2,1.0)
[2022-01-03 16:17] LABS: Bacteria,Urine 1+ /HPF (None Seen)
== END | disposition home or self-care (01) ==
LOC: LABWHC1 09:03
PROVIDERS: ATTEND Internal Medicine
DX: E61.1 Iron deficiency (principal); N18.4 Chronic kidney disease, stage 4 (severe); R19.7 Diarrhea, unspecified
CPT/HCPCS: 36415; 80053; 81001; 82728; 83540; 83550; 84100; 85027; 87086

== ENCOUNTER 2024-11-27 12:25 | Emergency (ER) | payer MEDICARE ==
[2024-11-27 13:18] VITALS: RESP 18
--- NOTE | 2024-11-27 13:51 | ED ---
Nausea/Vomiting/Diarrhea HPI - General Chief complaint: Nausea/Vomiting/Diarrhea Stated complaint: Diarrhea-Poss Cdiff Time Seen by Provider: 11/27/24 13:45 Source: patient, RN notes reviewed Mode of arrival: ambulatory Limitations: no limitations - History of Present Illness Initial comments: 84-year-old male presenting with family for diarrhea x 5 days. States he was recently diagnosed with a UTI last week by his drying machine back tender and placed on ciprofloxacin. States after starting the ciprofloxacin he began experiencing diarrhea approximately every 4 hours. Describes diarrhea as watery. Also reports he has been nauseous for the past couple of weeks however he attributed this to his kidney failure. Family reports they decided to not undergo dialysis and hospice has been contacted. Patient does have a urostomy status post bladder carcinoma. Family reports patient undergoes weekly IV hydration. He does have a history of C. difficile twice in the past. Family states he does not want to be admitted today. He has been prescribed Zofran for chronic nausea which she has been taking but he is requesting something else for nausea today. - Related Data Previous Rx's Medication Instructions Recorded Apixaban [Eliquis] 2.5 mg PO BID #60 tab 12/19/21 Metoprolol Tartrate [Lopressor] 25 mg PO BID #60 tab 06/29/22 methIMAzole [Tapazole] 5 mg PO DAILY #30 tab 06/29/22 Prochlorperazine [Compazine] 10 mg PO Q8H #15 tab 11/27/24 Allergies Allergy/AdvReac Type Severity Reaction Status Date / Time No Known Allergies Allergy Verified 11/27/24 12:39 Review of Systems ROS Statement: Those systems with pertinent positive or pertinent negative responses have been documented in the HPI. ROS Other: All systems not noted in ROS Statement are negative. Past Medical History Past Medical History: Cancer Additional Past Medical History / Comment(s): bladder CA, one episode of A fib History of Any Multi-Drug Resistant Organisms: None Reported Past Surgical History: No Surgical Hx Reported Additional Past Surgical History / Comment(s): urostomy, cystoscopy with bladder tumor ressection, radical cystectomy Past Anesthesia/Blood Transfusion Reactions: No Reported Reaction Past Psychological History: No Psychological Hx Reported Smoking Status: Former smoker Past Alcohol Use History: None Reported Past Drug Use History: None Reported - Past Family History Mother Additional Family Medical History / Comment(s): breast cancer Father Additional Family Medical History / Comment(s): heart disease General Exam Limitations: no limitations General appearance: alert, in no apparent distress Head exam: Present: atraumatic, normocephalic, normal inspection Eye exam: Present: normal appearance, PERRL, EOMI. Absent: scleral icterus, conjunctival injection, periorbital swelling GI/Abdominal exam: Present: soft, normal bowel sounds. Absent: distended, tenderness, guarding, rebound, rigid Back exam: Absent: CVA tenderness (R), CVA tenderness (L) Neurological exam: Present: alert, oriented X3 Psychiatric exam: Present: normal affect, normal mood Skin exam: Present: warm, dry, intact, normal color. Absent: rash Course Vital Signs 11/27/24 11/27/24 11/27/24 12:36 13:17 15:39 Temperature 97.4 F L Pulse Rate 76 79 82 Respiratory 20 18 18 Rate Blood Pressure 139/73 134/73 156/70 O2 Sat by Pulse 98 100 96 Oximetry Medical Decision Making - Medical Decision Making Was pt. sent in by a medical professional or institution (, PA, TELEVISION EQUIPMENT OPERATOR, urgent care, hospital, or intermediate...) When possible be specific @ -No Did you speak to anyone other than the patient for history (EMS, parent, family, police, friend...)? What history was obtained from this source @ -Family supplemented history Did you review nursing and triage notes (agree or disagree)? Why? @ -I reviewed and agree with nursing and triage notes Were old charts reviewed (outside hosp., previous admission, EMS record, old EKG, old radiological studies, urgent care reports/EKG's, intermediate records)? Report findings @ -No old charts were reviewed Differential Diagnosis (chest pain, altered mental status, abdominal pain women, abdominal pain men, vaginal bleeding, weakness, fever, dyspnea, syncope, he adache, dizziness, GI bleed, back pain, seizure, CVA, palpatations, mental health, musculoskeletal)? @ -Differential Abdominal Pain Men: C. difficile, infectious diarrhea, inflammatory diarrhea, appendicitis, cholecystitis, diverticulosis, ischemic bowel, pancreatitis, hepatitis, UTI, gastroenteritis, AAA, incarcerated hernia, bowel obstruction, constipation, inflammatory bowel, hepatitis, peptic ulcer disease, splenic infarction, perforated viscus, testicular torsion, this is not meant to be an all-inclusive list EKG interpreted by me (3pts min.). @ -None X-rays interpreted by me (1pt min.). @ -None done CT interpreted by me (1pt min.). @ -None done U/S interpreted by me (1pt. min.). @ -None done What testing was considered but not performed or refused? (CT, X-rays, U/S, labs)? Why? @ -None What meds were considered but not given or refused? Why? @ -None Did you discuss the management of the patient with other professionals (professionals i.e. , PA, TELEVISION EQUIPMENT OPERATOR, lab, RT, psych nurse, social organization professor, torch solderer, teacher, officer captain, mental health case manager)? Give summary @ -No Was smoking cessation discussed for >3mins.? @ -No Was critical care preformed (if so, how long)? @ -No Were there social determinants of health that impacted care today? How? (Homelessness, low income, unemployed, alcoholism, drug addiction, transportation, low edu. Level, literacy, decrease access to med. care, shelter, r ehab)? @ -No Was there de-escalation of care discussed even if they declined (Discuss DNR or withdrawal of care, Hospice)? DNR status @ -No What co-morbidities impacted this encounter? (DM, HTN, Smoking, COPD, CAD, Cancer, CVA, ARF, Chemo, Hep., AIDS, mental health diagnosis, sleep apnea, morbid obesity)? @ -None Was patient admitted / discharged? Hospital course, mention meds given and route, prescriptions, significant lab abnormalities, going to OR and other pertinent info. @ -Discharge. 84-year-old male presenting for diarrhea x 5 days status post starting ciprofloxacin for UTI. Denies fevers or abdominal pain. Denies flank pain. No CVA tenderness. Abdomen soft nonsurgical nondistended. Lab work remarkable for leukocytosis of 16, creatinine 15, BUN 119, CO2 6. After trying to leave a stool sample for approximately 3 hours, patient states he is unable to leave a sample and would rather follow-up outpatient to leave a sample. States he does not have a PCP therefore prescription was given for C. difficile order to drop off at the outpatient lab. Discussed critical lab results with patient. Patient reiterates that he does not want to be admitted and hospice is becoming involved in his care at this time as he is refusing dialysis. Patient is also requesting medication for nausea as Zofran he was prescribed is only minimally improving his nausea. Short prescription for Compazine was prescribed. Case was discussed with my ED attending Dr. Xavier Undiagnosed new problem with uncertain prognosis? @ -No Drug Therapy requiring intensive monitoring for toxicity (Heparin, Nitro, Insulin, Cardizem)? @ -No Were any procedures done? @ -No Diagnosis/symptom? @ -Diarrhea, renal failure Acute, or Chronic, or Acute on Chronic? @ -Acute Uncomplicated (without systemic symptoms) or Complicated (systemic symptoms)? @ -Complicated Side effects of treatment? @ -No Exacerbation, Progression, or Severe Exacerbation? @ -No Poses a threat to life or bodily function? How? (Chest pain, [place], [place], pneumonia, PE, COPD, DKA, ARF, appy, cholecystitis, CVA, Diverticulitis, Homicidal, S uicidal, threat to staff... and all critical care pts) @ -Yes - Lab Data Result diagrams: 11/27/24 13:31 11/27/24 13:31 Lab Results 11/27/24 11/27/24 11/27/24 Range/Units 13:31 13:31 13:31 WBC 16.35 H (4.50-10.00) 10*3/uL RBC 3.03 L (4.40-5.60) 10*6/uL Hgb 8.8 L (13.0-17.0) g/dL Hct 27.0 L (39.6-50.0) % MCV 89.1 (80.0-97.0) fL MCH 29.0 (27.0-32.0) pg MCHC 32.6 (32.0-37.0) g/dL Plt Count 307 (140-440) 10*3/uL MPV 9.8 (9.5-12.2) fL Immature Gran % (Auto) 1.2 % Neutrophils % 93.8 % Lymphocytes % 1.3 % Monocytes % 3.6 % Eosinophils % 0.0 % Basophils % 0.1 % Immature Gran # 0.19 H (0.00-0.04) 10*3/uL Neutrophils # 15.33 H (1.80-7.70) 10*3/uL Lymphocytes # 0.22 L (0.90-5.00) 10*3/uL Monocytes # 0.59 (0.20-1.00) 10*3/uL Eosinophils # 0.00 L (0.04-0.35) 10*3/uL Basophils # 0.02 (0.00-0.10) 10*3/uL Sodium 128 L (137-145) mmol/L Potassium 5.3 H (3.5-5.1) mmol/L Chloride 98 (98-107) mmol/L Carbon Dioxide 6 L* (22-30) mmol/L Anion Gap 24 mmol/L BUN 119 H* (9-20) mg/dL Creatinine 15.52 H* (0.66-1.25) mg/dL Est GFR (CKD-EPI)AfAm 3 (>60 ml/min/1.73 sqM) Est GFR (CKD-EPI)NonAf 3 (>60 ml/min/1.73 sqM) Glucose 125 H (74-99) mg/dL Plasma Lactic Acid Rosalio 1.1 (0.7-2.0) mmol/L Calcium 7.6 L (8.4-10.2) mg/dL Magnesium 1.5 L (1.6-2.3) mg/dL Total Bilirubin 0.6 (0.2-1.3) mg/dL AST 20 (17-59) U/L ALT 14 (4-49) U/L Alkaline Phosphatase 27 L (38-126) U/L Total Protein 6.5 (6.3-8.2) g/dL Albumin 3.2 L (3.5-5.0) g/dL Disposition Clinical Impression: Diarrhea Disposition: HOME SELF-CARE Condition: Stable Instructions (If sedation given, give patient instructions): Acute Diarrhea (ED) Additional Instructions: Please return to the Emergency Department if symptoms worsen or any other concerns. Prescriptions: Prochlorperazine [Compazine] 10 mg PO Q8H #15 tab Is patient prescribed a controlled substance at d/c from ED?: No Referrals: None,Stated [Primary Care Provider] - 1-2 days Time of Disposition: 15:52
[2024-11-27 13:57] LABS: Basophils # (A) 0.02 10*3/uL (0.00-0.10); Basophils % (A) 0.1 %; Eosinophils # (A) 0.00 10*3/uL (0.04-0.35); Eosinophils % (A) 0.0 %; HCT 27.0 % (39.6-50.0); HGB 8.8 g/dL (13.0-17.0); Lymphocytes # (A) 0.22 10*3/uL (0.90-5.00); Lymphocytes % (A) 1.3 %; MCH 29.0 pg (27.0-32.0); MCHC 32.6 g/dL (32.0-37.0); MCV 89.1 fL (80.0-97.0); Monocytes # (A) 0.59 10*3/uL (0.20-1.00); Monocytes % (A) 3.6 %; Neutrophils # (A) 15.33 10*3/uL (1.80-7.70); Neutrophils % (A) 93.8 %; Platelet Count 307 10*3/uL (140-440); RBC 3.03 10*6/uL (4.40-5.60); RDW 16.1 % (11.5-14.5); WBC 16.35 10*3/uL (4.50-10.00)
[2024-11-27 14:02] LABS: ALT 14 U/L (4-49); AST 20 U/L (17-59); African American GFR (CKD) 3 (>60 ml/min/1.73 sqM); Albumin 3.2 g/dL (3.5-5.0); Alkaline Phosphatase 27 U/L (38-126); Anion Gap 24 mmol/L; Calcium 7.6 mg/dL (8.4-10.2); Chloride 98 mmol/L (98-107); Glucose 125 mg/dL (74-99); Magnesium 1.5 mg/dL (1.6-2.3); Non-African American GFR(CKD) 3 (>60 ml/min/1.73 sqM); Potassium 5.3 mmol/L (3.5-5.1); Sodium 128 mmol/L (137-145); Total Protein 6.5 g/dL (6.3-8.2)
[2024-11-27 14:20] LABS: Blood Urea Nitrogen 119 mg/dL (9-20); Carbon Dioxide 6 mmol/L (22-30)
[2024-11-27] MEDS: SODIUM CHLORIDE 0.9% 1,000 ML IV STA (14:30)
[2024-11-27] MEDS: METOCLOPRAMIDE 5 MG/ML 2 ML VIAL IVP STA (14:51)
[2024-11-27 15:42] VITALS: BP 156/70; PULSE 82
[2024-11-27 16:13] VITALS: TEMP 98.7
[2024-11-27 16:14] LABS: Bilirubin,Urine Negative (Negative); Blood,Urine Moderate (Negative); Budding Yeast,Urine Many /hpf; Glucose,Urine (UA) Negative (Negative); Ketones,Urine Negative (Negative); Leukocyte Esterase,Urine Large (Negative); Nitrite,Urine Negative (Negative); PH, Urine 8.0 (5.0-8.0); Protein,Urine 2+ (Negative); RBC,Urine 13 /hpf (0-5); Urobilinogen,Urine <2.0 mg/dL (<2.0); WBC,Urine 34 /hpf (0-5)
[2024-11-27 16:19] LABS: Specific Gravity,Urine 1.045 (1.001-1.035)
[2024-11-27 16:20] LABS: Color,Urine Light Yellow
== END 2024-11-27 16:06 | disposition home or self-care (01) ==
LOC: EC 12:25
DX: R19.7 Diarrhea, unspecified (principal); Z87.891 Personal history of nicotine dependence
CPT/HCPCS: 36415; 80053; 83605; 83735; 85025; 81001; 87086; 99284; 96374; 96361; J2765